=== PATIENT | male | born 1975 | race Caucasian/White ===

== ENCOUNTER 2021-06-28 13:21 | Inpatient (IN) | payer BC ==
[2021-06-28] MEDS ORDERED: Sodium Chloride 0.9% 10 ML Syringe FLUSH PRN (13:48)
[2021-06-28] MEDS ORDERED: Sodium Chloride 0.9% 2.5 ML Syringe FLUSH PRN (13:48)
[2021-06-28] MEDS ORDERED: Dexamethasone 10 MG/ML SDV IVPUSH ONE (13:48)
--- NOTE | 2021-06-28 13:50 | EDM.PDOC ---
ED HPI GENERAL MEDICAL PROBLEM - General Chief Complaint: Respiratory Problem Stated Complaint: COVID POS Time Seen by Provider: 06/28/21 13:26 Source of Information: Reports: Patient History Limitations: Reports: No Limitations - History of Present Illness INITIAL COMMENTS - FREE TEXT/NARRATIVE: 46-year-old male past medical history obesity presents for worsening shortness of breath and coughing and fatigue in setting of known COVID-19 infection. Patient was diagnosed on June 25, 4 days ago. Patient notes that over the last couple of days has had worsening shortness of breath, nonproductive cough, fatigue. He gets very short of breath when ambulating. He notes some nausea but no vomiting. He has been doing [id number] antipyretics at home without relief of symptoms. He has not been on steroids or antibiotics. Bilateral Chest Pain Score (Numeric/FACES): 8 Past Medical History - Past Health History Medical/Surgical History: Denies Medical/Surgical History HEENT History: Reports: None Cardiovascular History: Reports: None Respiratory History: Reports: None Gastrointestinal History: Reports: None Genitourinary History: Reports: None Musculoskeletal History: Reports: None Neurological History: Reports: None Psychiatric History: Reports: None Hematologic History: Reports: None Dermatologic History: Reports: None - Infectious Disease History Infectious Disease History: Reports: Chicken Pox - Past Surgical History Male Surgical History: Reports: None Social & Family History - Family History Family Medical History: No Pertinent Family History - Tobacco Use Tobacco Use Status *Q: Never Tobacco User - Caffeine Use Caffeine Use: Reports: Coffee - Recreational Drug Use Recreational Drug Use: No ED ROS GENERAL - Review of Systems Review Of Systems: Comprehensive ROS is negative, except as noted in HPI. ED EXAM, GENERAL - Physical Exam Exam: See Below Exam Limited By: No Limitations General Appearance: Alert, WD/WN, No Apparent Distress Ears: Hearing Grossly Normal Throat/Mouth: Normal Voice, No Airway Compromise Head: Atraumatic, Normocephalic Neck: Normal Inspection Respiratory/Chest: No Respiratory Distress, Lungs Clear, Normal Breath Sounds, No Accessory Muscle Use Cardiovascular: Normal Peripheral Pulses, Tachycardia Extremities: Normal Inspection Neurological: Alert, Normal Cognition, Normal Gait Psychiatric: Normal Affect, Normal Mood Skin Exam: Warm, Dry, Intact, Normal Color #1 Interpretation EKG Date: 06/28/21 Time: 13:52 Rhythm: NSR Rate (Beats/Min): 102 [place]: Normal P-Wave: Present QRS: Normal ST-T: Normal QT: Normal NC/PQ Interval: 148 EKG Interpretation Comments: TWI lead III, otherwise unremarkable EKG Course - Vital Signs Last Recorded V/S: Last Vital Signs Temp 97.6 F 06/28/21 13:36 Pulse 104 H 06/28/21 16:41 Resp 18 06/28/21 16:41 BP 120/73 06/28/21 16:41 Pulse Ox 95 06/28/21 16:41 - Orders/Labs/Meds Orders: Active Orders 24 hr Category Date Time Status Patient Status [ADT] Routine ADT 06/28/21 17:03 Ordered Cardiac Monitoring [RC] . DIRECTED Care 06/28/21 13:48 Active Pulse Oximetry [RC] ASDIRECTED Care 06/28/21 13:49 Active BILIRUBIN DIRECT [CHEM] Stat Lab 06/28/21 17:02 Stop Req Sodium Chloride 0.9% [Normal Saline] 1,000 ml Med 06/28/21 17:02 Ordered IV STAT Sodium Chloride 0.9% [Saline Flush] Med 06/28/21 13:48 Active 10 ml FLUSH ASDIRECTED PRN Sodium Chloride 0.9% [Saline Flush] Med 06/28/21 13:48 Active 2.5 ml FLUSH ASDIRECTED PRN Saline Lock Insert [OM.PC] Stat Oth 06/28/21 13:48 Ordered Medication Orders Sodium Chloride (Normal Saline) 1,000 mls @ 250 mls/hr IV STAT STA Stop: 06/28/21 21:01 Sodium Chloride (Sodium Chloride 0.9% 10 Ml Syringe) 10 ml FLUSH ASDIRECTED PRN PRN Reason: Keep Vein Open Last Admin: 06/28/21 14:28 Dose: 10 ml Documented by: JOSEFINA Sodium Chloride (Sodium Chloride 0.9% 2.5 Ml Syringe) 2.5 ml FLUSH ASDIRECTED PRN PRN Reason: Keep Vein Open Last Admin: 06/28/21 14:28 Dose: 2.5 ml Documented by: JOSEFINA Labs: Laboratory Tests 06/28/21 06/28/21 06/28/21 Range/Units 14:15 14:15 14:15 WBC 4.76 (4.0-11.0) K/uL RBC 5.18 (4.50-5.90) M/uL Hgb 14.5 (13.0-17.0) g/dL Hct 40.9 (38.0-50.0) % MCV 79.0 L (80.0-98.0) fL MCH 28.0 (27.0-32.0) pg MCHC 35.5 (31.0-37.0) g/dL RDW Std Deviation 38.5 (28.0-62.0) fl RDW Coeff of Giuliana 14 (11.0-15.0) % Plt Count 109 L (150-400) K/uL MPV 10.40 (7.40-12.00) fL Neut % (Auto) 77.7 (48.0-80.0) % Lymph % (Auto) 16.0 (16.0-40.0) % [place] % (Auto) 6.3 (0.0-15.0) % Eos % (Auto) 0.0 (0.0-7.0) % Baso % (Auto) 0.0 (0.0-1.5) % Neut # (Auto) 3.7 (1.4-5.7) K/uL Lymph # (Auto) 0.8 (0.6-2.4) K/uL [place] # (Auto) 0.3 (0.0-0.8) K/uL Eos # (Auto) 0.0 (0.0-0.7) K/uL Baso # (Auto) 0.0 (0.0-0.1) K/uL Nucleated RBC % 0.0 /100WBC Nucleated RBCs # 0 K/uL INR 1.14 APTT 34.1 H (18.6-31.3) SEC D-Dimer, Quantitative 2.00 H (0.0-0.50) mg/L FEU Sodium (136-148) mmol/L Potassium (3.5-5.1) mmol/L Chloride (98-107) mmol/L Carbon Dioxide (21.0-32.0) mmol/L BUN (7.0-18.0) mg/dL Creatinine (0.8-1.3) mg/dL Est Cr Clr Drug Dosing mL/min Estimated GFR (MDRD) ml/min Glucose (74-106) mg/dL Lactic Acid 1.8 (0.4-2.0) mmol/L Calcium (8.5-10.1) mg/dL Magnesium (1.8-2.4) mg/dL Total Bilirubin (0.2-1.0) mg/dL AST (15-37) IU/L ALT (14-63) IU/L Alkaline Phosphatase (46-116) U/L Troponin I (0.000-0.056) ng/mL C-Reactive Protein (0.00-0.90) mg/dL Total Protein (6.4-8.2) g/dL Albumin (3.4-5.0) g/dL Globulin (2.6-4.0) g/dL Albumin/Globulin Ratio (0.9-1.6) 06/28/21 Range/Units 14:15 WBC (4.0-11.0) K/uL RBC (4.50-5.90) M/uL Hgb (13.0-17.0) g/dL Hct (38.0-50.0) % MCV (80.0-98.0) fL MCH (27.0-32.0) pg MCHC (31.0-37.0) g/dL RDW Std Deviation (28.0-62.0) fl RDW Coeff of Giuliana (11.0-15.0) % Plt Count (150-400) K/uL MPV (7.40-12.00) fL Neut % (Auto) (48.0-80.0) % Lymph % (Auto) (16.0-40.0) % [place] % (Auto) (0.0-15.0) % Eos % (Auto) (0.0-7.0) % Baso % (Auto) (0.0-1.5) % Neut # (Auto) (1.4-5.7) K/uL Lymph # (Auto) (0.6-2.4) K/uL [place] # (Auto) (0.0-0.8) K/uL Eos # (Auto) (0.0-0.7) K/uL Baso # (Auto) (0.0-0.1) K/uL Nucleated RBC % /100WBC Nucleated RBCs # K/uL INR APTT (18.6-31.3) SEC D-Dimer, Quantitative (0.0-0.50) mg/L FEU Sodium 125 L (136-148) mmol/L Potassium 4.1 (3.5-5.1) mmol/L Chloride 87 L (98-107) mmol/L Carbon Dioxide 27.9 (21.0-32.0) mmol/L BUN 16 (7.0-18.0) mg/dL Creatinine 1.5 H (0.8-1.3) mg/dL Est Cr Clr Drug Dosing 62.86 mL/min Estimated GFR (MDRD) 50.2 ml/min Glucose 123 H (74-106) mg/dL Lactic Acid (0.4-2.0) mmol/L Calcium 7.9 L (8.5-10.1) mg/dL Magnesium 1.7 L (1.8-2.4) mg/dL Total Bilirubin 0.6 (0.2-1.0) mg/dL AST 78 H (15-37) IU/L ALT 62 (14-63) IU/L Alkaline Phosphatase 32 L (46-116) U/L Troponin I < 0.050 (0.000-0.056) ng/mL C-Reactive Protein 8.10 H (0.00-0.90) mg/dL Total Protein 7.1 (6.4-8.2) g/dL Albumin 3.1 L (3.4-5.0) g/dL Globulin 4.0 (2.6-4.0) g/dL Albumin/Globulin Ratio 0.8 L (0.9-1.6) Meds: Medications Generic Name Dose Route Start Last Admin Trade Name Freq PRN Reason Stop Dose Admin Sodium Chloride 1,000 mls @ 250 mls/hr 06/28/21 17:02 Normal Saline IV 06/28/21 21:01 STAT STA Sodium Chloride 10 ml 06/28/21 13:48 06/28/21 14:28 Sodium Chloride 0.9% 10 Ml Syringe FLUSH 10 ml ASDIRECTED PRN Administration Keep Vein Open Sodium Chloride 2.5 ml 06/28/21 13:48 06/28/21 14:28 Sodium Chloride 0.9% 2.5 Ml Syringe FLUSH 2.5 ml ASDIRECTED PRN Administration Keep Vein Open Discontinued Medications Generic Name Dose Route Start Last Admin Trade Name Freq PRN Reason Stop Dose Admin Dexamethasone 6 mg 06/28/21 13:48 06/28/21 14:28 Dexamethasone 10 Mg/Ml Sdv IVPUSH 06/28/21 13:49 6 mg ONETIME ONE Administration Remdesivir 200 mg/ Sodium 250 mls @ 250 mls/hr 06/28/21 17:02 Chloride IV 06/28/21 17:03 ONETIME ONE Iopamidol 75 ml 06/28/21 16:23 06/28/21 16:24 Iopamidol 755 Mg/Ml 500 Ml Multipack Bottle IVPUSH 06/28/21 16:24 75 ml ONETIME STA Administration - Re-Assessments/Exams Free Text/Narrative Re-Assessment/Exam: 06/28/21 14:13 Patient is hypoxic on room air. He improves to high 90s with 2 L nasal cannula. Will get labs and imaging. 06/28/21 15:16 Patient with elevated D-dimer and tachycardia without fever. Will get CTA chest rule pulmonary embolism in setting of known Covid infection. 06/28/21 17:04 CT angiography does not show evidence of pulmonary embolism. Patient does have moderate to severe Covid pneumonia. I discussed the case with patient and ho spitalist who agrees with plan to admit for further treatment. First dose of remdesivir ordered for the emergency department. Normal saline at 250 an hour also ordered. Departure - Departure Time of Disposition: 17:04 Disposition: Admitted As Inpatient 65 Condition: Good, Fair Clinical Impression: COVID - Discharge Information Referrals: Hank Katz MD [Primary Care Provider] - Forms: ED Department Discharge Critical Care Note - Critical Care Note Total Time (mins): 35 Sepsis Event Note (ED) - Focused Exam Vital Signs: Vital Signs Temp Pulse Resp BP Pulse Ox 06/28/21 16:41 104 H 18 120/73 95 06/28/21 15:07 108 H 18 116/81 97 06/28/21 14:30 110 H 20 127/79 94 L 06/28/21 13:36 97.6 F 109 H 32 H 118/74 91 L - My Orders Last 24 Hours: My Active Orders 06/28/21 13:48 Cardiac Monitoring [RC] . DIRECTED Sodium Chloride 0.9% [Saline Flush] 10 ml FLUSH ASDIRECTED PRN Sodium Chloride 0.9% [Saline Flush] 2.5 ml FLUSH ASDIRECTED PRN Saline Lock Insert [OM.PC] Stat 06/28/21 13:49 Pulse Oximetry [RC] ASDIRECTED 06/28/21 17:02 BILIRUBIN DIRECT [CHEM] Stat 06/28/21 17:02 Sodium Chloride 0.9% [Normal Saline] 1,000 ml IV STAT 06/28/21 17:03 Patient Status [ADT] Routine - Assessment/Plan Last 24 Hours: My Active Orders 06/28/21 13:48 Cardiac Monitoring [RC] . DIRECTED Sodium Chloride 0.9% [Saline Flush] 10 ml FLUSH ASDIRECTED PRN Sodium Chloride 0.9% [Saline Flush] 2.5 ml FLUSH ASDIRECTED PRN Saline Lock Insert [OM.PC] Stat 06/28/21 13:49 Pulse Oximetry [RC] ASDIRECTED 06/28/21 17:02 BILIRUBIN DIRECT [CHEM] Stat 06/28/21 17:02 Sodium Chloride 0.9% [Normal Saline] 1,000 ml IV STAT 06/28/21 17:03 Patient Status [ADT] Routine
--- NOTE | 2021-06-28 14:45 | CR ---
INDICATION: COVID positive. Worsening symptoms. FINDINGS: A single portable chest x-ray shows normal cardiac silhouette. The lungs are hypoventilated and show patchy ground-glass opacities in the right upper lobe and left lower lobe. Sharp pleural margins. No pneumothorax. IMPRESSION: Patchy ground-glass opacities in the right upper lobe and left lower lobe likely represents COVID pneumonia. Dictated by Nick River MD @ 06/28/2021 2:45:02 PM (Electronically Signed)
[2021-06-28 15:16] LABS: BLOOD UREA NITROGEN,BUN 16 mg/dL (7.0-18.0); CARBON DIOXIDE,CO2 27.9 mmol/L (21.0-32.0); CHLORIDE,CL 87 mmol/L (98-107); GLUCOSE RANDOM 123 mg/dL (74-106); POTASSIUM,K 4.1 mmol/L (3.5-5.1)
[2021-06-28 15:23] LABS: SODIUM,NA 125 mmol/L (136-148)
[2021-06-28] MEDS ORDERED: Iopamidol 755 MG/ML 500 ML Multipack Bottle IVPUSH STA (16:23)
--- NOTE | 2021-06-28 16:43 | CT ---
INDICATION: Elevated D-dimer. COVID positive. TECHNIQUE: CT chest PE was acquired with 75 cc Isovue 370 IV contrast. COMPARISON: None. FINDINGS: Heart and vasculature: Contrast opacification of the pulmonary arterial tree is adequate. No sign of pulmonary embolism. Heart size is normal. Thoracic aorta and pulmonary artery are normal in caliber. Lungs and pleural: Diffuse bilateral ground-glass infiltrates. No pleural effusions, pleural thickening, or pneumothorax. Lymph nodes/mediastinum: No mediastinal, hilar, or axillary adenopathy. Chest wall: No masses. Upper abdomen: Normal. Bones: Unremarkable for age. IMPRESSION: 1. No pulmonary embolism. 2. Moderate to severe COVID pneumonitis. Please note that all CT scans at this facility use dose modulation, iterative reconstruction, and/or weight-based dosing when appropriate to reduce radiation dose to as low as reasonably achievable. Dictated by Neil Esposito MD @ 06/28/2021 4:41:54 PM (Electronically Signed)
[2021-06-28] MEDS ORDERED: REMDESIVIR 200 MG in Sodium Chloride 0.9% 250 ML IV ONE (17:02)
[2021-06-28] MEDS ORDERED: Sodium Chloride 0.9% 1,000 ML IV STA (17:02)
[2021-06-28] MEDS ORDERED: Albuterol/Ipratropium 4 GM Inhalation Spray INH PRN (17:20)
--- NOTE | 2021-06-28 17:20 | PCM.HP.2 ---
H&P History of Present Illness - General Date of Service: 06/28/21 Admit Problem/Dx: Admission Diagnosis/Problem Admission Diagnosis/Problem Pneumonia - History of Present Illness Initial Comments - Free Text/Narative: 46 yo male who presents with ten day history of shortness of breath, cough, and fevers. IN the ED he was noted to be hypoxic requiring simple NC to keep sats above 90%. Patient had CT angio which was negative for PE but reports moderate to severe COVID pneumonia. Bilateral Chest Pain Score (Numeric/FACES): 8 - Related Data Allergies/Adverse Reactions: Allergies Allergy/AdvReac Type Severity Reaction Status Date / Time No Known Allergies Allergy Verified 06/28/21 17:13 Home Medications: Home Meds . [No Known Home Meds] 06/28/21 [History] Past Medical History - Past Health History Medical/Surgical History: Denies Medical/Surgical History HEENT History: Reports: None Cardiovascular History: Reports: None Respiratory History: Reports: None Gastrointestinal History: Reports: None Genitourinary History: Reports: None Musculoskeletal History: Reports: None Neurological History: Reports: None Psychiatric History: Reports: None Hematologic History: Reports: None Dermatologic History: Reports: None - Infectious Disease History Infectious Disease History: Reports: Chicken Pox - Past Surgical History Male Surgical History: Reports: None Social & Family History - Family History Family Medical History: No Pertinent Family History - Tobacco Use Tobacco Use Status *Q: Never Tobacco User - Caffeine Use Caffeine Use: Reports: Coffee - Recreational Drug Use Recreational Drug Use: No H&P Review of Systems - Review of Systems: Review Of Systems: Comprehensive ROS is negative, except as noted in HPI. Exam - Exam Exam: See Below - Vital Signs Vital Signs: Last Vital Signs Temp 36.4 C 06/28/21 13:36 Pulse 104 H 06/28/21 16:41 Resp 18 06/28/21 16:41 BP 120/73 06/28/21 16:41 Pulse Ox 95 06/28/21 16:41 Weight: 122.47 kg - Exam General: Alert, Oriented HEENT: Mucosa Moist & [place] Lungs: Normal Respiratory Effort, Rhonchi Cardiovascular: Regular Rate, Regular Rhythm Extremities: Non-Tender, No Pedal Edema Skin: Warm, Dry, Intact - Patient Data Lab Results Last 24 hrs: Laboratory Results - last 24 hr 06/28/21 06/28/21 06/28/21 Range/Units 14:15 14:15 14:15 WBC 4.76 (4.0-11.0) K/uL RBC 5.18 (4.50-5.90) M/uL Hgb 14.5 (13.0-17.0) g/dL Hct 40.9 (38.0-50.0) % MCV 79.0 L (80.0-98.0) fL MCH 28.0 (27.0-32.0) pg MCHC 35.5 (31.0-37.0) g/dL RDW Std Deviation 38.5 (28.0-62.0) fl RDW Coeff of Giuliana 14 (11.0-15.0) % Plt Count 109 L (150-400) K/uL MPV 10.40 (7.40-12.00) fL Neut % (Auto) 77.7 (48.0-80.0) % Lymph % (Auto) 16.0 (16.0-40.0) % [place] % (Auto) 6.3 (0.0-15.0) % Eos % (Auto) 0.0 (0.0-7.0) % Baso % (Auto) 0.0 (0.0-1.5) % Neut # (Auto) 3.7 (1.4-5.7) K/uL Lymph # (Auto) 0.8 (0.6-2.4) K/uL [place] # (Auto) 0.3 (0.0-0.8) K/uL Eos # (Auto) 0.0 (0.0-0.7) K/uL Baso # (Auto) 0.0 (0.0-0.1) K/uL Nucleated RBC % 0.0 /100WBC Nucleated RBCs # 0 K/uL INR 1.14 APTT 34.1 H (18.6-31.3) SEC D-Dimer, Quantitative 2.00 H (0.0-0.50) mg/L FEU Sodium (136-148) mmol/L Potassium (3.5-5.1) mmol/L Chloride (98-107) mmol/L Carbon Dioxide (21.0-32.0) mmol/L BUN (7.0-18.0) mg/dL Creatinine (0.8-1.3) mg/dL Est Cr Clr Drug Dosing mL/min Estimated GFR (MDRD) ml/min Glucose (74-106) mg/dL Lactic Acid 1.8 (0.4-2.0) mmol/L Calcium (8.5-10.1) mg/dL Magnesium (1.8-2.4) mg/dL Total Bilirubin (0.2-1.0) mg/dL AST (15-37) IU/L ALT (14-63) IU/L Alkaline Phosphatase (46-116) U/L Troponin I (0.000-0.056) ng/mL C-Reactive Protein (0.00-0.90) mg/dL Total Protein (6.4-8.2) g/dL Albumin (3.4-5.0) g/dL Globulin (2.6-4.0) g/dL Albumin/Globulin Ratio (0.9-1.6) 06/28/21 Range/Units 14:15 WBC (4.0-11.0) K/uL RBC (4.50-5.90) M/uL Hgb (13.0-17.0) g/dL Hct (38.0-50.0) % MCV (80.0-98.0) fL MCH (27.0-32.0) pg MCHC (31.0-37.0) g/dL RDW Std Deviation (28.0-62.0) fl RDW Coeff of Giuliana (11.0-15.0) % Plt Count (150-400) K/uL MPV (7.40-12.00) fL Neut % (Auto) (48.0-80.0) % Lymph % (Auto) (16.0-40.0) % [place] % (Auto) (0.0-15.0) % Eos % (Auto) (0.0-7.0) % Baso % (Auto) (0.0-1.5) % Neut # (Auto) (1.4-5.7) K/uL Lymph # (Auto) (0.6-2.4) K/uL [place] # (Auto) (0.0-0.8) K/uL Eos # (Auto) (0.0-0.7) K/uL Baso # (Auto) (0.0-0.1) K/uL Nucleated RBC % /100WBC Nucleated RBCs # K/uL INR APTT (18.6-31.3) SEC D-Dimer, Quantitative (0.0-0.50) mg/L FEU Sodium 125 L (136-148) mmol/L Potassium 4.1 (3.5-5.1) mmol/L Chloride 87 L (98-107) mmol/L Carbon Dioxide 27.9 (21.0-32.0) mmol/L BUN 16 (7.0-18.0) mg/dL Creatinine 1.5 H (0.8-1.3) mg/dL Est Cr Clr Drug Dosing 62.86 mL/min Estimated GFR (MDRD) 50.2 ml/min Glucose 123 H (74-106) mg/dL Lactic Acid (0.4-2.0) mmol/L Calcium 7.9 L (8.5-10.1) mg/dL Magnesium 1.7 L (1.8-2.4) mg/dL Total Bilirubin 0.6 (0.2-1.0) mg/dL AST 78 H (15-37) IU/L ALT 62 (14-63) IU/L Alkaline Phosphatase 32 L (46-116) U/L Troponin I < 0.050 (0.000-0.056) ng/mL C-Reactive Protein 8.10 H (0.00-0.90) mg/dL Total Protein 7.1 (6.4-8.2) g/dL Albumin 3.1 L (3.4-5.0) g/dL Globulin 4.0 (2.6-4.0) g/dL Albumin/Globulin Ratio 0.8 L (0.9-1.6) Result Diagrams: 06/28/21 14:15 06/28/21 14:15 Sepsis Event Note - Focused Exam Vital Signs: Vital Signs Temp Pulse Resp BP Pulse Ox 06/28/21 16:41 104 H 18 120/73 95 06/28/21 15:07 108 H 18 116/81 97 06/28/21 14:30 110 H 20 127/79 94 L 06/28/21 13:36 36.4 C 109 H 32 H 118/74 91 L Problem List Initiated/Reviewed/Updated: Yes Orders Last 24hrs: Active Orders 24 hr Category Date Time Status Patient Status [ADT] Routine ADT 06/28/21 17:03 Active Cardiac Monitoring [RC] . DIRECTED Care 06/28/21 13:48 Active Communication Order [RC] ROUTINE Care 06/28/21 17:16 Ordered Oxygen Therapy [RC] PRN Care 06/28/21 17:19 Ordered Pulse Oximetry [RC] ASDIRECTED Care 06/28/21 13:49 Active RT Post Treatment Assessment [RC] Click to Edit Care 06/28/21 17:20 Ordered RT Pre-Treatment Assessment [RC] Click to Edit Care 06/28/21 17:20 Ordered Up ad Imani [RC] ASDIRECTED Care 06/28/21 17:19 Ordered VTE/DVT Education [RC] PER UNIT ROUTINE Care 06/28/21 17:19 Ordered Vital Signs [RC] Q4H Care 06/28/21 17:19 Ordered Regular Diet [DIET] Diet 06/28/21 Breakfast Ordered BMP [BASIC METABOLIC PANEL,BMP] [CHEM] Stat Lab 06/28/21 22:00 Ordered CBC WITH AUTO DIFF [HEME] AM Lab 06/29/21 05:11 Ordered CBC WITH AUTO DIFF [HEME] AM Lab 06/30/21 05:11 Ordered CBC WITH AUTO DIFF [HEME] AM Lab 07/01/21 05:11 Ordered CBC WITH AUTO DIFF [HEME] AM Lab 07/02/21 05:11 Ordered CBC WITH AUTO DIFF [HEME] AM Lab 07/03/21 05:11 Ordered HEPATIC FUNCTION PANEL,HFP [CHEM] AM Lab 06/29/21 05:11 Ordered HEPATIC FUNCTION PANEL,HFP [CHEM] AM Lab 06/30/21 05:11 Ordered HEPATIC FUNCTION PANEL,HFP [CHEM] AM Lab 07/01/21 05:11 Ordered HEPATIC FUNCTION PANEL,HFP [CHEM] AM Lab 07/02/21 05:11 Ordered HEPATIC FUNCTION PANEL,HFP [CHEM] AM Lab 07/03/21 05:11 Ordered Albuterol/Ipratropium [Combivent Respimat] Med 06/28/21 17:20 Ordered 1 gm INH Q4H PRN Codeine/guaiFENesin [Robitussin AC] Med 06/28/21 17:20 Ordered 5 ml PO Q6H PRN Enoxaparin [Lovenox] Med 06/28/21 17:30 Ordered 40 mg SUBCUT Q24H Remdesivir 100 mg Med 06/29/21 17:30 Ordered Sodium Chloride 0.9% [Normal Saline] 100 ml IV Q24H Sodium Chloride 0.9% [Normal Saline] 1,000 ml Med 06/28/21 17:02 Active IV STAT Sodium Chloride 0.9% [Saline Flush] Med 06/28/21 13:48 Active 10 ml FLUSH ASDIRECTED PRN Sodium Chloride 0.9% [Saline Flush] Med 06/28/21 13:48 Active 2.5 ml FLUSH ASDIRECTED PRN dexAMETHasone Med 06/29/21 17:30 Ordered 6 mg PO Q24H Saline Lock Insert [OM.PC] Stat Oth 06/28/21 13:48 Ordered Resuscitation Status Routine Resus Stat 06/28/21 17:19 Ordered Medication Orders Dexamethasone (Dexamethasone 4 Mg Tab) 6 mg PO Q24H SAMM Enoxaparin Sodium (Enoxaparin 40 Mg/0.4 Ml Syringe) 40 mg SUBCUT Q24H SAMM Sodium Chloride (Normal Saline) 1,000 mls @ 250 mls/hr IV STAT STA Stop: 06/28/21 21:01 Remdesivir 100 mg/ Sodium (Chloride) 100 mls @ 100 mls/hr IV Q24H SAMM Stop: 07/02/21 18:29 Sodium Chloride (Sodium Chloride 0.9% 10 Ml Syringe) 10 ml FLUSH ASDIRECTED PRN PRN Reason: Keep Vein Open Last Admin: 06/28/21 14:28 Dose: 10 ml Documented by: JOSEFINA Sodium Chloride (Sodium Chloride 0.9% 2.5 Ml Syringe) 2.5 ml FLUSH ASDIRECTED PRN PRN Reason: Keep Vein Open Last Admin: 06/28/21 14:28 Dose: 2.5 ml Documented by: JOSEFINA Assessment/Plan Comment:: 46 yo male admitted for acute hypoxic respiratory failure due to COVID pneumonia. Will treat with dexamethasone and remdesivir. Will wean supplemental NC oxygen as tolerated. Receiving some NS IVF due to hyponatremia, will be cautious with IV fluids due to COVID and recheck sodium later Lovenox for DVT prophylaxis
[2021-06-28] MEDS ORDERED: Sodium Chloride 0.9% 500 ML IV STA (17:25)
[2021-06-28] MEDS: Enoxaparin 40 MG/0.4 ML Syringe SUBCUT SCH (17:46)
[2021-06-28 20:22] LABS: CARBON DIOXIDE,CO2 30.3 mmol/L (21.0-32.0); POTASSIUM,K 4.1 mmol/L (3.5-5.1)
[2021-06-29] MEDS: Codeine/guaiFENesin 10-100 MG/5 ML Syrup 5 ML Cup PO PRN ×2 (06:53→14:52)
--- NOTE | 2021-06-29 07:24 | PCM.PN ---
- General Info Date of Service: 06/29/21 - Review of Systems Systems Review Comment:: feeling better, shortness of breath has improved - Patient Data Vitals - Most Recent: Last Vital Signs Temp 36.3 C 06/29/21 03:40 Pulse 83 06/29/21 03:40 Resp 18 06/29/21 03:40 BP 135/76 06/29/21 03:40 Pulse Ox 95 06/29/21 03:40 Weight - Most Recent: 123.74 kg I&O - Last 24 Hours: Intake & Output 06/28/21 06/29/21 06/29/21 22:59 06:59 14:59 Intake Total 800 Balance 800 Lab Results Last 24 Hours: Laboratory Results - last 24 hr 06/28/21 06/28/21 06/28/21 Range/Units 14:15 14:15 14:15 WBC 4.76 (4.0-11.0) K/uL RBC 5.18 (4.50-5.90) M/uL Hgb 14.5 (13.0-17.0) g/dL Hct 40.9 (38.0-50.0) % MCV 79.0 L (80.0-98.0) fL MCH 28.0 (27.0-32.0) pg MCHC 35.5 (31.0-37.0) g/dL RDW Std Deviation 38.5 (28.0-62.0) fl RDW Coeff of Giuliana 14 (11.0-15.0) % Plt Count 109 L (150-400) K/uL MPV 10.40 (7.40-12.00) fL Neut % (Auto) 77.7 (48.0-80.0) % Lymph % (Auto) 16.0 (16.0-40.0) % [place] % (Auto) 6.3 (0.0-15.0) % Eos % (Auto) 0.0 (0.0-7.0) % Baso % (Auto) 0.0 (0.0-1.5) % Neut # (Auto) 3.7 (1.4-5.7) K/uL Lymph # (Auto) 0.8 (0.6-2.4) K/uL [place] # (Auto) 0.3 (0.0-0.8) K/uL Eos # (Auto) 0.0 (0.0-0.7) K/uL Baso # (Auto) 0.0 (0.0-0.1) K/uL Nucleated RBC % 0.0 /100WBC Nucleated RBCs # 0 K/uL INR 1.14 APTT 34.1 H (18.6-31.3) SEC D-Dimer, Quantitative 2.00 H (0.0-0.50) mg/L FEU Sodium (136-148) mmol/L Potassium (3.5-5.1) mmol/L Chloride (98-107) mmol/L Carbon Dioxide (21.0-32.0) mmol/L BUN (7.0-18.0) mg/dL Creatinine (0.8-1.3) mg/dL Est Cr Clr Drug Dosing mL/min Estimated GFR (MDRD) ml/min Glucose (74-106) mg/dL Lactic Acid 1.8 (0.4-2.0) mmol/L Calcium (8.5-10.1) mg/dL Magnesium (1.8-2.4) mg/dL Total Bilirubin (0.2-1.0) mg/dL AST (15-37) IU/L ALT (14-63) IU/L Alkaline Phosphatase (46-116) U/L Troponin I (0.000-0.056) ng/mL C-Reactive Protein (0.00-0.90) mg/dL Total Protein (6.4-8.2) g/dL Albumin (3.4-5.0) g/dL Globulin (2.6-4.0) g/dL Albumin/Globulin Ratio (0.9-1.6) 06/28/21 06/28/21 Range/Units 14:15 20:00 WBC (4.0-11.0) K/uL RBC (4.50-5.90) M/uL Hgb (13.0-17.0) g/dL Hct (38.0-50.0) % MCV (80.0-98.0) fL MCH (27.0-32.0) pg MCHC (31.0-37.0) g/dL RDW Std Deviation (28.0-62.0) fl RDW Coeff of Giuliana (11.0-15.0) % Plt Count (150-400) K/uL MPV (7.40-12.00) fL Neut % (Auto) (48.0-80.0) % Lymph % (Auto) (16.0-40.0) % [place] % (Auto) (0.0-15.0) % Eos % (Auto) (0.0-7.0) % Baso % (Auto) (0.0-1.5) % Neut # (Auto) (1.4-5.7) K/uL Lymph # (Auto) (0.6-2.4) K/uL [place] # (Auto) (0.0-0.8) K/uL Eos # (Auto) (0.0-0.7) K/uL Baso # (Auto) (0.0-0.1) K/uL Nucleated RBC % /100WBC Nucleated RBCs # K/uL INR APTT (18.6-31.3) SEC D-Dimer, Quantitative (0.0-0.50) mg/L FEU Sodium 125 L 125 L (136-148) mmol/L Potassium 4.1 4.1 (3.5-5.1) mmol/L Chloride 87 L 89 L (98-107) mmol/L Carbon Dioxide 27.9 30.3 (21.0-32.0) mmol/L BUN 16 15 (7.0-18.0) mg/dL Creatinine 1.5 H 1.5 H (0.8-1.3) mg/dL Est Cr Clr Drug Dosing 62.86 63.85 mL/min Estimated GFR (MDRD) 50.2 50.2 ml/min Glucose 123 H 140 H (74-106) mg/dL Lactic Acid (0.4-2.0) mmol/L Calcium 7.9 L 7.8 L (8.5-10.1) mg/dL Magnesium 1.7 L (1.8-2.4) mg/dL Total Bilirubin 0.6 (0.2-1.0) mg/dL AST 78 H (15-37) IU/L ALT 62 (14-63) IU/L Alkaline Phosphatase 32 L (46-116) U/L Troponin I < 0.050 (0.000-0.056) ng/mL C-Reactive Protein 8.10 H (0.00-0.90) mg/dL Total Protein 7.1 (6.4-8.2) g/dL Albumin 3.1 L (3.4-5.0) g/dL Globulin 4.0 (2.6-4.0) g/dL Albumin/Globulin Ratio 0.8 L (0.9-1.6) Med Orders - Current: Current Medications Albuterol/Ipratropium (Albuterol/Ipratropium 4 Gm Inhalation [place]) 1 gm INH Q4H PRN PRN Reason: Dyspnea Dexamethasone (Dexamethasone 4 Mg Tab) 6 mg PO Q24H SAMM Enoxaparin Sodium (Enoxaparin 40 Mg/0.4 Ml Syringe) 40 mg SUBCUT Q24H SAMM Last Admin: 06/28/21 17:46 Dose: 40 mg Documented by: Guaifenesin/Codeine Phosphate (Codeine/Guaifenesin 10-100 Mg/5 Ml Syrup 5 Ml Cup) 5 ml PO Q6H PRN PRN Reason: Cough Last Admin: 06/29/21 06:53 Dose: 5 ml Documented by: Remdesivir 100 mg/ Sodium (Chloride) 100 mls @ 100 mls/hr IV Q24H SAMM Stop: 07/02/21 18:29 Sodium Chloride (Sodium Chloride 0.9% 10 Ml Syringe) 10 ml FLUSH ASDIRECTED PRN PRN Reason: Keep Vein Open Last Admin: 06/28/21 14:28 Dose: 10 ml Documented by: Sodium Chloride (Sodium Chloride 0.9% 2.5 Ml Syringe) 2.5 ml FLUSH ASDIRECTED PRN PRN Reason: Keep Vein Open Last Admin: 06/28/21 14:28 Dose: 2.5 ml Documented by: Discontinued Medications Dexamethasone (Dexamethasone 10 Mg/Ml Sdv) 6 mg IVPUSH ONETIME ONE Stop: 06/28/21 13:49 Last Admin: 06/28/21 14:28 Dose: 6 mg Documented by: Remdesivir 200 mg/ Sodium (Chloride) 250 mls @ 250 mls/hr IV ONETIME ONE Stop: 06/28/21 17:03 Last Admin: 06/28/21 17:46 Dose: 250 mls/hr Documented by: Sodium Chloride (Normal Saline) 1,000 mls @ 250 mls/hr IV STAT STA Stop: 06/28/21 21:01 Last Admin: 06/28/21 17:50 Dose: Not Given Documented by: Sodium Chloride (Normal Saline) 500 mls @ 250 mls/hr IV STAT STA Stop: 06/28/21 19:01 Last Admin: 06/28/21 17:46 Dose: 250 mls/hr Documented by: Iopamidol (Iopamidol 755 Mg/Ml 500 Ml Multipack Bottle) 75 ml IVPUSH ONETIME STA Stop: 06/28/21 16:24 Last Admin: 06/28/21 16:24 Dose: 75 ml Documented by: - Exam General: Alert, Oriented Neck: Supple Lungs: Clear to Auscultation, Normal Respiratory Effort Cardiovascular: Regular Rate, Regular Rhythm GI/Abdominal Exam: Soft Extremities: Non-Tender, No Pedal Edema Skin: Warm, Dry, Intact Neurological: No New Focal Deficit - Patient Data Lab Results Last 24 hrs: Laboratory Results - last 24 hr 06/28/21 06/28/21 06/28/21 Range/Units 14:15 14:15 14:15 WBC 4.76 (4.0-11.0) K/uL RBC 5.18 (4.50-5.90) M/uL Hgb 14.5 (13.0-17.0) g/dL Hct 40.9 (38.0-50.0) % MCV 79.0 L (80.0-98.0) fL MCH 28.0 (27.0-32.0) pg MCHC 35.5 (31.0-37.0) g/dL RDW Std Deviation 38.5 (28.0-62.0) fl RDW Coeff of Giuliana 14 (11.0-15.0) % Plt Count 109 L (150-400) K/uL MPV 10.40 (7.40-12.00) fL Neut % (Auto) 77.7 (48.0-80.0) % Lymph % (Auto) 16.0 (16.0-40.0) % [place] % (Auto) 6.3 (0.0-15.0) % Eos % (Auto) 0.0 (0.0-7.0) % Baso % (Auto) 0.0 (0.0-1.5) % Neut # (Auto) 3.7 (1.4-5.7) K/uL Lymph # (Auto) 0.8 (0.6-2.4) K/uL [place] # (Auto) 0.3 (0.0-0.8) K/uL Eos # (Auto) 0.0 (0.0-0.7) K/uL Baso # (Auto) 0.0 (0.0-0.1) K/uL Nucleated RBC % 0.0 /100WBC Nucleated RBCs # 0 K/uL INR 1.14 APTT 34.1 H (18.6-31.3) SEC D-Dimer, Quantitative 2.00 H (0.0-0.50) mg/L FEU Sodium (136-148) mmol/L Potassium (3.5-5.1) mmol/L Chloride (98-107) mmol/L Carbon Dioxide (21.0-32.0) mmol/L BUN (7.0-18.0) mg/dL Creatinine (0.8-1.3) mg/dL Est Cr Clr Drug Dosing mL/min Estimated GFR (MDRD) ml/min Glucose (74-106) mg/dL Lactic Acid 1.8 (0.4-2.0) mmol/L Calcium (8.5-10.1) mg/dL Magnesium (1.8-2.4) mg/dL Total Bilirubin (0.2-1.0) mg/dL AST (15-37) IU/L ALT (14-63) IU/L Alkaline Phosphatase (46-116) U/L Troponin I (0.000-0.056) ng/mL C-Reactive Protein (0.00-0.90) mg/dL Total Protein (6.4-8.2) g/dL Albumin (3.4-5.0) g/dL Globulin (2.6-4.0) g/dL Albumin/Globulin Ratio (0.9-1.6) 06/28/21 06/28/21 Range/Units 14:15 20:00 WBC (4.0-11.0) K/uL RBC (4.50-5.90) M/uL Hgb (13.0-17.0) g/dL Hct (38.0-50.0) % MCV (80.0-98.0) fL MCH (27.0-32.0) pg MCHC (31.0-37.0) g/dL RDW Std Deviation (28.0-62.0) fl RDW Coeff of Giuliana (11.0-15.0) % Plt Count (150-400) K/uL MPV (7.40-12.00) fL Neut % (Auto) (48.0-80.0) % Lymph % (Auto) (16.0-40.0) % [place] % (Auto) (0.0-15.0) % Eos % (Auto) (0.0-7.0) % Baso % (Auto) (0.0-1.5) % Neut # (Auto) (1.4-5.7) K/uL Lymph # (Auto) (0.6-2.4) K/uL [place] # (Auto) (0.0-0.8) K/uL Eos # (Auto) (0.0-0.7) K/uL Baso # (Auto) (0.0-0.1) K/uL Nucleated RBC % /100WBC Nucleated RBCs # K/uL INR APTT (18.6-31.3) SEC D-Dimer, Quantitative (0.0-0.50) mg/L FEU Sodium 125 L 125 L (136-148) mmol/L Potassium 4.1 4.1 (3.5-5.1) mmol/L Chloride 87 L 89 L (98-107) mmol/L Carbon Dioxide 27.9 30.3 (21.0-32.0) mmol/L BUN 16 15 (7.0-18.0) mg/dL Creatinine 1.5 H 1.5 H (0.8-1.3) mg/dL Est Cr Clr Drug Dosing 62.86 63.85 mL/min Estimated GFR (MDRD) 50.2 50.2 ml/min Glucose 123 H 140 H (74-106) mg/dL Lactic Acid (0.4-2.0) mmol/L Calcium 7.9 L 7.8 L (8.5-10.1) mg/dL Magnesium 1.7 L (1.8-2.4) mg/dL Total Bilirubin 0.6 (0.2-1.0) mg/dL AST 78 H (15-37) IU/L ALT 62 (14-63) IU/L Alkaline Phosphatase 32 L (46-116) U/L Troponin I < 0.050 (0.000-0.056) ng/mL C-Reactive Protein 8.10 H (0.00-0.90) mg/dL Total Protein 7.1 (6.4-8.2) g/dL Albumin 3.1 L (3.4-5.0) g/dL Globulin 4.0 (2.6-4.0) g/dL Albumin/Globulin Ratio 0.8 L (0.9-1.6) Result Diagrams: 06/28/21 14:15 06/28/21 20:00 Sepsis Event Note - Evaluation Sepsis Screening Result: No Definite Risk - Focused Exam Vital Signs: Vital Signs Temp Pulse Resp BP Pulse Ox 06/29/21 03:40 36.3 C 83 18 135/76 95 06/29/21 00:00 37.4 C 87 24 H 134/86 94 L 06/28/21 19:42 93 18 140/79 94 L - Problem List Review Problem List Initiated/Reviewed/Updated: Yes - My Orders Last 24 Hours: My Active Orders 06/28/21 Breakfast Regular Diet [DIET] 06/28/21 17:16 Communication Order [RC] ROUTINE 06/28/21 17:19 Oxygen Therapy [RC] PRN Up ad Imani [RC] ASDIRECTED VTE/DVT Education [RC] PER UNIT ROUTINE Vital Signs [RC] Q4H Resuscitation Status Routine 06/28/21 17:20 RT Post Treatment Assessment [RC] Click to Edit RT Pre-Treatment Assessment [RC] Click to Edit Albuterol/Ipratropium [Combivent Respimat] 1 gm INH Q4H PRN Codeine/guaiFENesin [Robitussin AC] 5 ml PO Q6H PRN 06/28/21 17:30 Enoxaparin [Lovenox] 40 mg SUBCUT Q24H 06/28/21 17:46 Telemetry Monitoring [Cardiac Monitoring] [RC] . DIRECTED 06/29/21 05:11 CBC WITH AUTO DIFF [HEME] AM HEPATIC FUNCTION PANEL,HFP [CHEM] AM 06/29/21 17:30 Remdesivir 100 mg Sodium Chloride 0.9% [Normal Saline] 100 ml IV Q24H dexAMETHasone 6 mg PO Q24H 06/30/21 05:11 CBC WITH AUTO DIFF [HEME] AM HEPATIC FUNCTION PANEL,HFP [CHEM] AM 07/01/21 05:11 CBC WITH AUTO DIFF [HEME] AM HEPATIC FUNCTION PANEL,HFP [CHEM] AM 07/02/21 05:11 CBC WITH AUTO DIFF [HEME] AM HEPATIC FUNCTION PANEL,HFP [CHEM] AM 07/03/21 05:11 CBC WITH AUTO DIFF [HEME] AM HEPATIC FUNCTION PANEL,HFP [CHEM] AM - Plan Plan:: 46 yo male admitted for acute hypoxic respiratory failure due to COVID pneumonia. COVID pneumonia: continue with dexamethasone and remdesivir. Will wean suppl emental [place] oxygen as tolerated. Hyponatremia: Receiving some NS IVF due to hyponatremia, being cautious with IV fluids due to COVID AM labs pending Lovenox for DVT prophylaxis
[2021-06-29 08:07] LABS: BILIRUBIN INDIRECT 0.5
[2021-06-29 12:48] LABS: BLOOD UREA NITROGEN,BUN 14 mg/dL (7.0-18.0); CARBON DIOXIDE,CO2 31.5 mmol/L (21.0-32.0); CHLORIDE,CL 89 mmol/L (98-107); GLUCOSE RANDOM 120 mg/dL (74-106); SODIUM,NA 125 mmol/L (136-148)
[2021-06-29] MEDS: REMDESIVIR 100 MG in Sodium Chloride 0.9% 100 ML IV SCH (18:06)
[2021-06-29] MEDS: Dexamethasone 4 MG Tab PO SCH (18:06)
[2021-06-29] MEDS: Enoxaparin 40 MG/0.4 ML Syringe SUBCUT SCH (18:06)
[2021-06-29] MEDS: Sodium Chloride 0.9% 1,000 ML IV SCH (19:42)
[2021-06-29 20:34] LABS: BLOOD UREA NITROGEN,BUN 15 mg/dL (7.0-18.0); CARBON DIOXIDE,CO2 29.9 mmol/L (21.0-32.0); CHLORIDE,CL 90 mmol/L (98-107); GLUCOSE RANDOM 153 mg/dL (74-106); SODIUM,NA 125 mmol/L (136-148)
[2021-06-30] MEDS: Sodium Chloride 0.9% 1,000 ML IV SCH (03:55)
[2021-06-30 06:33] LABS: BLOOD UREA NITROGEN,BUN 14 mg/dL (7.0-18.0); CARBON DIOXIDE,CO2 30.4 mmol/L (21.0-32.0); CHLORIDE,CL 94 mmol/L (98-107); GLUCOSE RANDOM 141 mg/dL (74-106); POTASSIUM,K 4.2 mmol/L (3.5-5.1); SODIUM,NA 130 mmol/L (136-148)
--- NOTE | 2021-06-30 12:36 | PCM.PN ---
- General Info Date of Service: 06/30/21 - Review of Systems Systems Review Comment:: feeling better, reports shortness of breath with exertion - Patient Data Vitals - Most Recent: Last Vital Signs Temp 35.9 C L 06/30/21 12:10 Pulse 81 06/30/21 12:10 Resp 17 06/30/21 12:10 BP 125/67 06/30/21 12:10 Pulse Ox 90 L 06/30/21 12:10 Weight - Most Recent: 123.74 kg I&O - Last 24 Hours: Intake & Output 06/29/21 06/30/21 06/30/21 22:59 06:59 14:59 Intake Total 980 1000 Balance 980 1000 Lab Results Last 24 Hours: Laboratory Results - last 24 hr 06/29/21 06/29/21 06/30/21 Range/Units 07:18 20:07 05:40 WBC 3.84 L (4.0-11.0) K/uL RBC 4.91 (4.50-5.90) M/uL Hgb 13.7 (13.0-17.0) g/dL Hct 39.4 (38.0-50.0) % MCV 80.2 (80.0-98.0) fL MCH 27.9 (27.0-32.0) pg MCHC 34.8 (31.0-37.0) g/dL RDW Std Deviation 40.9 (28.0-62.0) fl RDW Coeff of Giuliana 14 (11.0-15.0) % Plt Count 145 L (150-400) K/uL MPV 10.90 (7.40-12.00) fL Neut % (Auto) 75.0 (48.0-80.0) % Lymph % (Auto) 16.4 (16.0-40.0) % [place] % (Auto) 8.6 (0.0-15.0) % Eos % (Auto) 0.0 (0.0-7.0) % Baso % (Auto) 0.0 (0.0-1.5) % Neut # (Auto) 2.9 (1.4-5.7) K/uL Lymph # (Auto) 0.6 (0.6-2.4) K/uL [place] # (Auto) 0.3 (0.0-0.8) K/uL Eos # (Auto) 0.0 (0.0-0.7) K/uL Baso # (Auto) 0.0 (0.0-0.1) K/uL Nucleated RBC % 0.0 /100WBC Nucleated RBCs # 0 K/uL Sodium 125 L 125 L (136-148) mmol/L Potassium 4.0 4.0 (3.5-5.1) mmol/L Chloride 89 L 90 L (98-107) mmol/L Carbon Dioxide 31.5 29.9 (21.0-32.0) mmol/L BUN 14 15 (7.0-18.0) mg/dL Creatinine 1.2 1.2 (0.8-1.3) mg/dL Est Cr Clr Drug Dosing 79.81 79.81 mL/min Estimated GFR (MDRD) > 60.0 > 60.0 ml/min Glucose 120 H 153 H (74-106) mg/dL Calcium 7.6 L 7.3 L (8.5-10.1) mg/dL Total Bilirubin (0.2-1.0) mg/dL AST (15-37) IU/L ALT (14-63) IU/L Alkaline Phosphatase (46-116) U/L Total Protein (6.4-8.2) g/dL Albumin (3.4-5.0) g/dL Globulin (2.6-4.0) g/dL Albumin/Globulin Ratio (0.9-1.6) 06/30/21 Range/Units 05:40 WBC (4.0-11.0) K/uL RBC (4.50-5.90) M/uL Hgb (13.0-17.0) g/dL Hct (38.0-50.0) % MCV (80.0-98.0) fL MCH (27.0-32.0) pg MCHC (31.0-37.0) g/dL RDW Std Deviation (28.0-62.0) fl RDW Coeff of Giuliana (11.0-15.0) % Plt Count (150-400) K/uL MPV (7.40-12.00) fL Neut % (Auto) (48.0-80.0) % Lymph % (Auto) (16.0-40.0) % [place] % (Auto) (0.0-15.0) % Eos % (Auto) (0.0-7.0) % Baso % (Auto) (0.0-1.5) % Neut # (Auto) (1.4-5.7) K/uL Lymph # (Auto) (0.6-2.4) K/uL [place] # (Auto) (0.0-0.8) K/uL Eos # (Auto) (0.0-0.7) K/uL Baso # (Auto) (0.0-0.1) K/uL Nucleated RBC % /100WBC Nucleated RBCs # K/uL Sodium 130 L (136-148) mmol/L Potassium 4.2 (3.5-5.1) mmol/L Chloride 94 L (98-107) mmol/L Carbon Dioxide 30.4 (21.0-32.0) mmol/L BUN 14 (7.0-18.0) mg/dL Creatinine 1.2 (0.8-1.3) mg/dL Est Cr Clr Drug Dosing 79.81 mL/min Estimated GFR (MDRD) > 60.0 ml/min Glucose 141 H (74-106) mg/dL Calcium 7.4 L (8.5-10.1) mg/dL Total Bilirubin 0.6 (0.2-1.0) mg/dL AST 88 H (15-37) IU/L ALT 68 H (14-63) IU/L Alkaline Phosphatase 28 L (46-116) U/L Total Protein 6.2 L (6.4-8.2) g/dL Albumin 2.5 L (3.4-5.0) g/dL Globulin 3.7 (2.6-4.0) g/dL Albumin/Globulin Ratio 0.7 L (0.9-1.6) Med Orders - Current: Current Medications Albuterol/Ipratropium (Albuterol/Ipratropium 4 Gm Inhalation [place]) 1 gm INH Q4H PRN PRN Reason: Dyspnea Dexamethasone (Dexamethasone 4 Mg Tab) 6 mg PO Q24H SAMM Last Admin: 06/29/21 18:06 Dose: 6 mg Documented by: Enoxaparin Sodium (Enoxaparin 40 Mg/0.4 Ml Syringe) 40 mg SUBCUT Q24H SAMM Last Admin: 06/29/21 18:06 Dose: 40 mg Documented by: Guaifenesin/Codeine Phosphate (Codeine/Guaifenesin 10-100 Mg/5 Ml Syrup 5 Ml Cup) 5 ml PO Q6H PRN PRN Reason: Cough Last Admin: 06/29/21 14:52 Dose: 5 ml Documented by: Remdesivir 100 mg/ Sodium (Chloride) 100 mls @ 100 mls/hr IV Q24H SAMM Stop: 07/02/21 18:29 Last Admin: 06/29/21 18:06 Dose: 100 mls/hr Documented by: Sodium Chloride (Sodium Chloride 0.9% 10 Ml Syringe) 10 ml FLUSH ASDIRECTED PRN PRN Reason: Keep Vein Open Last Admin: 06/28/21 14:28 Dose: 10 ml Documented by: Sodium Chloride (Sodium Chloride 0.9% 2.5 Ml Syringe) 2.5 ml FLUSH ASDIRECTED PRN PRN Reason: Keep Vein Open Last Admin: 06/28/21 14:28 Dose: 2.5 ml Documented by: Discontinued Medications Dexamethasone (Dexamethasone 10 Mg/Ml Sdv) 6 mg IVPUSH ONETIME ONE Stop: 06/28/21 13:49 Last Admin: 06/28/21 14:28 Dose: 6 mg Documented by: Remdesivir 200 mg/ Sodium (Chloride) 250 mls @ 250 mls/hr IV ONETIME ONE Stop: 06/28/21 17:03 Last Admin: 06/28/21 17:46 Dose: 250 mls/hr Documented by: Sodium Chloride (Normal Saline) 1,000 mls @ 250 mls/hr IV STAT STA Stop: 06/28/21 21:01 Last Admin: 06/28/21 17:50 Dose: Not Given Documented by: Sodium Chloride (Normal Saline) 500 mls @ 250 mls/hr IV STAT STA Stop: 06/28/21 19:01 Last Admin: 06/28/21 17:46 Dose: 250 mls/hr Documented by: Sodium Chloride (Normal Saline) 1,000 mls @ 125 mls/hr IV ASDIRECTED SAMM Last Admin: 06/30/21 03:55 Dose: 125 mls/hr Documented by: Iopamidol (Iopamidol 755 Mg/Ml 500 Ml Multipack Bottle) 75 ml IVPUSH ONETIME STA Stop: 06/28/21 16:24 Last Admin: 06/28/21 16:24 Dose: 75 ml Documented by: - Exam General: Alert, Oriented Neck: Supple Lungs: Clear to Auscultation, Normal Respiratory Effort Cardiovascular: Regular Rate, Regular Rhythm GI/Abdominal Exam: Soft, Non-Tender, No Distention Extremities: Non-Tender, No Pedal Edema Skin: Warm, Dry, Intact - Patient Data Lab Results Last 24 hrs: Laboratory Results - last 24 hr 06/29/21 06/29/21 06/30/21 Range/Units 07:18 20:07 05:40 WBC 3.84 L (4.0-11.0) K/uL RBC 4.91 (4.50-5.90) M/uL Hgb 13.7 (13.0-17.0) g/dL Hct 39.4 (38.0-50.0) % MCV 80.2 (80.0-98.0) fL MCH 27.9 (27.0-32.0) pg MCHC 34.8 (31.0-37.0) g/dL RDW Std Deviation 40.9 (28.0-62.0) fl RDW Coeff of Giuliana 14 (11.0-15.0) % Plt Count 145 L (150-400) K/uL MPV 10.90 (7.40-12.00) fL Neut % (Auto) 75.0 (48.0-80.0) % Lymph % (Auto) 16.4 (16.0-40.0) % [place] % (Auto) 8.6 (0.0-15.0) % Eos % (Auto) 0.0 (0.0-7.0) % Baso % (Auto) 0.0 (0.0-1.5) % Neut # (Auto) 2.9 (1.4-5.7) K/uL Lymph # (Auto) 0.6 (0.6-2.4) K/uL [place] # (Auto) 0.3 (0.0-0.8) K/uL Eos # (Auto) 0.0 (0.0-0.7) K/uL Baso # (Auto) 0.0 (0.0-0.1) K/uL Nucleated RBC % 0.0 /100WBC Nucleated RBCs # 0 K/uL Sodium 125 L 125 L (136-148) mmol/L Potassium 4.0 4.0 (3.5-5.1) mmol/L Chloride 89 L 90 L (98-107) mmol/L Carbon Dioxide 31.5 29.9 (21.0-32.0) mmol/L BUN 14 15 (7.0-18.0) mg/dL Creatinine 1.2 1.2 (0.8-1.3) mg/dL Est Cr Clr Drug Dosing 79.81 79.81 mL/min Estimated GFR (MDRD) > 60.0 > 60.0 ml/min Glucose 120 H 153 H (74-106) mg/dL Calcium 7.6 L 7.3 L (8.5-10.1) mg/dL Total Bilirubin (0.2-1.0) mg/dL AST (15-37) IU/L ALT (14-63) IU/L Alkaline Phosphatase (46-116) U/L Total Protein (6.4-8.2) g/dL Albumin (3.4-5.0) g/dL Globulin (2.6-4.0) g/dL Albumin/Globulin Ratio (0.9-1.6) 06/30/21 Range/Units 05:40 WBC (4.0-11.0) K/uL RBC (4.50-5.90) M/uL Hgb (13.0-17.0) g/dL Hct (38.0-50.0) % MCV (80.0-98.0) fL MCH (27.0-32.0) pg MCHC (31.0-37.0) g/dL RDW Std Deviation (28.0-62.0) fl RDW Coeff of Giuliana (11.0-15.0) % Plt Count (150-400) K/uL MPV (7.40-12.00) fL Neut % (Auto) (48.0-80.0) % Lymph % (Auto) (16.0-40.0) % [place] % (Auto) (0.0-15.0) % Eos % (Auto) (0.0-7.0) % Baso % (Auto) (0.0-1.5) % Neut # (Auto) (1.4-5.7) K/uL Lymph # (Auto) (0.6-2.4) K/uL [place] # (Auto) (0.0-0.8) K/uL Eos # (Auto) (0.0-0.7) K/uL Baso # (Auto) (0.0-0.1) K/uL Nucleated RBC % /100WBC Nucleated RBCs # K/uL Sodium 130 L (136-148) mmol/L Potassium 4.2 (3.5-5.1) mmol/L Chloride 94 L (98-107) mmol/L Carbon Dioxide 30.4 (21.0-32.0) mmol/L BUN 14 (7.0-18.0) mg/dL Creatinine 1.2 (0.8-1.3) mg/dL Est Cr Clr Drug Dosing 79.81 mL/min Estimated GFR (MDRD) > 60.0 ml/min Glucose 141 H (74-106) mg/dL Calcium 7.4 L (8.5-10.1) mg/dL Total Bilirubin 0.6 (0.2-1.0) mg/dL AST 88 H (15-37) IU/L ALT 68 H (14-63) IU/L Alkaline Phosphatase 28 L (46-116) U/L Total Protein 6.2 L (6.4-8.2) g/dL Albumin 2.5 L (3.4-5.0) g/dL Globulin 3.7 (2.6-4.0) g/dL Albumin/Globulin Ratio 0.7 L (0.9-1.6) Result Diagrams: 06/30/21 05:40 06/30/21 05:40 Sepsis Event Note - Evaluation Sepsis Screening Result: Possible Sepsis Risk - Focused Exam Vital Signs: Vital Signs Temp Temp Pulse Resp BP Pulse Ox 06/30/21 12:10 35.9 C L 81 17 125/67 90 L 06/30/21 08:11 36.0 C L 77 20 125/79 93 L 06/30/21 08:04 36.0 C L 77 16 130/73 93 L 06/30/21 03:45 36.6 C 78 20 142/82 H 94 L - Problem List Review Problem List Initiated/Reviewed/Updated: Yes - My Orders Last 24 Hours: My Active Orders 06/29/21 13:31 Intake and Output Strict [RC] ASDIRECTED 06/29/21 15:35 Communication Order [RC] ROUTINE 06/29/21 17:30 Remdesivir 100 mg Sodium Chloride 0.9% [Normal Saline] 100 ml IV Q24H dexAMETHasone 6 mg PO Q24H 07/01/21 05:11 CBC WITH AUTO DIFF [HEME] AM COMPREHENSIVE METABOLIC PN,CMP [CHEM] AM 07/02/21 05:11 CBC WITH AUTO DIFF [HEME] AM COMPREHENSIVE METABOLIC PN,CMP [CHEM] AM 07/03/21 05:11 CBC WITH AUTO DIFF [HEME] AM COMPREHENSIVE METABOLIC PN,CMP [CHEM] AM 07/04/21 05:11 COMPREHENSIVE METABOLIC PN,CMP [CHEM] AM - Plan Plan:: 46 yo male admitted for acute hypoxic respiratory failure due to COVID pneumon ia. COVID pneumonia: continue with dexamethasone and remdesivir. Will wean supplemental NC oxygen as tolerated. patient desats with exertion. Hyponatremia: sodium 130 this morning Lovenox for DVT prophylaxis
[2021-06-30] MEDS: REMDESIVIR 100 MG in Sodium Chloride 0.9% 100 ML IV SCH (16:35)
[2021-06-30] MEDS: Dexamethasone 4 MG Tab PO SCH (16:41)
[2021-06-30] MEDS: Enoxaparin 40 MG/0.4 ML Syringe SUBCUT SCH (16:42)
[2021-07-01 07:08] LABS: BLOOD UREA NITROGEN,BUN 14 mg/dL (7.0-18.0); CARBON DIOXIDE,CO2 29.2 mmol/L (21.0-32.0); CHLORIDE,CL 97 mmol/L (98-107); GLUCOSE RANDOM 140 mg/dL (74-106); POTASSIUM,K 4.3 mmol/L (3.5-5.1); SODIUM,NA 132 mmol/L (136-148)
[2021-07-01] MEDS: Codeine/guaiFENesin 10-100 MG/5 ML Syrup 5 ML Cup PO PRN ×2 (11:46→18:14)
--- NOTE | 2021-07-01 13:02 | PCM.PN ---
- General Info Date of Service: 07/01/21 Admission Dx/Problem (Free Text): Admission Diagnosis/Problem Admission Diagnosis/Problem Pneumonia Subjective Update: Feeling improved today on and off oxygen continues to feel short of breath and appears dyspneic during interview. Denies any chest pain. Continues to have cough otherwise feeling much improved and eager to be discharged home when able. Functional Status: Reports: Pain Controlled, Tolerating Diet, Ambulating, Urinating - Review of Systems General: Reports: Fatigue HEENT: Reports: No Symptoms Pulmonary: Reports: Shortness of Breath, Cough Cardiovascular: Reports: Dyspnea on Exertion. Denies: Chest Pain, Palpitations Gastrointestinal: Reports: No Symptoms. Denies: Abdominal Pain, Nausea, Vomiting Genitourinary: Reports: No Symptoms Musculoskeletal: Reports: No Symptoms Skin: Reports: No Symptoms Neurological: Reports: No Symptoms Psychiatric: Reports: No Symptoms - Patient Data Vitals - Most Recent: Last Vital Signs Temp 97.1 F 07/01/21 11:43 Pulse 69 07/01/21 11:43 Resp 22 H 07/01/21 08:00 BP 108/77 07/01/21 11:43 Pulse Ox 91 L 07/01/21 11:43 Weight - Most Recent: 123.74 kg I&O - Last 24 Hours: Intake & Output 06/30/21 07/01/21 07/01/21 22:59 06:59 14:59 Intake Total 2450 1000 Balance 2450 1000 Lab Results Last 24 Hours: Laboratory Results - last 24 hr 07/01/21 07/01/21 Range/Units 06:02 06:02 WBC 4.52 (4.0-11.0) K/uL RBC 4.87 (4.50-5.90) M/uL Hgb 13.7 (13.0-17.0) g/dL Hct 39.8 (38.0-50.0) % MCV 81.7 (80.0-98.0) fL MCH 28.1 (27.0-32.0) pg MCHC 34.4 (31.0-37.0) g/dL RDW Std Deviation 42.1 (28.0-62.0) fl RDW Coeff of Giuliana 14 (11.0-15.0) % Plt Count 179 (150-400) K/uL MPV 10.60 (7.40-12.00) fL Neut % (Auto) 70.1 (48.0-80.0) % Lymph % (Auto) 17.5 (16.0-40.0) % [place] % (Auto) 11.5 (0.0-15.0) % Eos % (Auto) 0.0 (0.0-7.0) % Baso % (Auto) 0.9 (0.0-1.5) % Neut # (Auto) 3.2 (1.4-5.7) K/uL Lymph # (Auto) 0.8 (0.6-2.4) K/uL [place] # (Auto) 0.5 (0.0-0.8) K/uL Eos # (Auto) 0.0 (0.0-0.7) K/uL Baso # (Auto) 0.0 (0.0-0.1) K/uL Nucleated RBC % 0.0 /100WBC Nucleated RBCs # 0 K/uL Sodium 132 L (136-148) mmol/L Potassium 4.3 (3.5-5.1) mmol/L Chloride 97 L (98-107) mmol/L Carbon Dioxide 29.2 (21.0-32.0) mmol/L BUN 14 (7.0-18.0) mg/dL Creatinine 1.2 (0.8-1.3) mg/dL Est Cr Clr Drug Dosing 79.81 mL/min Estimated GFR (MDRD) > 60.0 ml/min Glucose 140 H (74-106) mg/dL Calcium 7.7 L (8.5-10.1) mg/dL Total Bilirubin 0.6 (0.2-1.0) mg/dL AST 76 H (15-37) IU/L ALT 80 H (14-63) IU/L Alkaline Phosphatase 32 L (46-116) U/L Total Protein 6.4 (6.4-8.2) g/dL Albumin 2.5 L (3.4-5.0) g/dL Globulin 3.9 (2.6-4.0) g/dL Albumin/Globulin Ratio 0.6 L (0.9-1.6) Med Orders - Current: Current Medications Albuterol/Ipratropium (Albuterol/Ipratropium 4 Gm Inhalation [place]) 1 gm INH Q4H PRN PRN Reason: Dyspnea Dexamethasone (Dexamethasone 4 Mg Tab) 6 mg PO Q24H [facility]M Last Admin: 06/30/21 16:41 Dose: 6 mg Documented by: Enoxaparin Sodium (Enoxaparin 40 Mg/0.4 Ml Syringe) 40 mg SUBCUT Q24H [facility] Last Admin: 06/30/21 16:42 Dose: 40 mg Documented by: Guaifenesin/Codeine Phosphate (Codeine/Guaifenesin 10-100 Mg/5 Ml Syrup 5 Ml Cup) 5 ml PO Q6H PRN PRN Reason: Cough Last Admin: 07/01/21 11:46 Dose: 5 ml Documented by: Remdesivir 100 mg/ Sodium (Chloride) 100 mls @ 100 mls/hr IV Q24H [facility] Stop: 07/02/21 18:29 Last Admin: 06/30/21 16:35 Dose: 100 mls/hr Documented by: Sodium Chloride (Sodium Chloride 0.9% 10 Ml Syringe) 10 ml FLUSH ASDIRECTED PRN PRN Reason: Keep Vein Open Last Admin: 06/28/21 14:28 Dose: 10 ml Documented by: Sodium Chloride (Sodium Chloride 0.9% 2.5 Ml Syringe) 2.5 ml FLUSH ASDIRECTED PRN PRN Reason: Keep Vein Open Last Admin: 06/28/21 14:28 Dose: 2.5 ml Documented by: Discontinued Medications Dexamethasone (Dexamethasone 10 Mg/Ml Sdv) 6 mg IVPUSH ONETIME ONE Stop: 06/28/21 13:49 Last Admin: 06/28/21 14:28 Dose: 6 mg Documented by: Remdesivir 200 mg/ Sodium (Chloride) 250 mls @ 250 mls/hr IV ONETIME ONE Stop: 06/28/21 17:03 Last Admin: 06/28/21 17:46 Dose: 250 mls/hr Documented by: Sodium Chloride (Normal Saline) 1,000 mls @ 250 mls/hr IV STAT STA Stop: 06/28/21 21:01 Last Admin: 06/28/21 17:50 Dose: Not Given Documented by: Sodium Chloride (Normal Saline) 500 mls @ 250 mls/hr IV STAT STA Stop: 06/28/21 19:01 Last Admin: 06/28/21 17:46 Dose: 250 mls/hr Documented by: Sodium Chloride (Normal Saline) 1,000 mls @ 125 mls/hr IV ASDIRECTED [facility]M Last Admin: 06/30/21 03:55 Dose: 125 mls/hr Documented by: Iopamidol (Iopamidol 755 Mg/Ml 500 Ml Multipack Bottle) [address] A Stop: 06/28/21 16:24 Last Admin: 06/28/21 16:24 Dose: 75 ml Documented by: - Exam General: Alert, Oriented, Cooperative, No Acute Distress Lungs: Decreased Breath Sounds, Crackles (Bibasilar crackles). No: Normal Respiratory Effort (Dyspnea) Cardiovascular: Regular Rate, Regular Rhythm Back Exam: Normal Inspection, Full Range of Motion Extremities: Normal Inspection, Normal Range of Motion, Non-Tender, No Pedal Edema Neurological: No New Focal Deficit Psy/Mental Status: Alert, Normal Affect, Normal Mood - Patient Data Lab Results Last 24 hrs: Laboratory Results - last 24 hr 07/01/21 07/01/21 Range/Units 06:02 06:02 WBC 4.52 (4.0-11.0) K/uL RBC 4.87 (4.50-5.90) M/uL Hgb 13.7 (13.0-17.0) g/dL Hct 39.8 (38.0-50.0) % MCV 81.7 (80.0-98.0) fL MCH 28.1 (27.0-32.0) pg MCHC 34.4 (31.0-37.0) g/dL RDW Std Deviation 42.1 (28.0-62.0) fl RDW Coeff of Giuliana 14 (11.0-15.0) % Plt Count 179 (150-400) K/uL MPV 10.60 (7.40-12.00) fL Neut % (Auto) 70.1 (48.0-80.0) % Lymph % (Auto) 17.5 (16.0-40.0) % Parker % (Auto) 11.5 (0.0-15.0) % Eos % (Auto) 0.0 (0.0-7.0) % Baso % (Auto) 0.9 (0.0-1.5) % Neut # (Auto) 3.2 (1.4-5.7) K/uL Lymph # (Auto) 0.8 (0.6-2.4) K/uL Parker # (Auto) 0.5 (0.0-0.8) K/uL Eos # (Auto) 0.0 (0.0-0.7) K/uL Baso # (Auto) 0.0 (0.0-0.1) K/uL Nucleated RBC % 0.0 /100WBC Nucleated RBCs # 0 K/uL Sodium 132 L (136-148) mmol/L Potassium 4.3 (3.5-5.1) mmol/L Chloride 97 L (98-107) mmol/L Carbon Dioxide 29.2 (21.0-32.0) mmol/L BUN 14 (7.0-18.0) mg/dL Creatinine 1.2 (0.8-1.3) mg/dL Est Cr Clr Drug Dosing 79.81 mL/min Estimated GFR (MDRD) > 60.0 ml/min Glucose 140 H (74-106) mg/dL Calcium 7.7 L (8.5-10.1) mg/dL Total Bilirubin 0.6 (0.2-1.0) mg/dL AST 76 H (15-37) IU/L ALT 80 H (14-63) IU/L Alkaline Phosphatase 32 L (46-116) U/L Total Protein 6.4 (6.4-8.2) g/dL Albumin 2.5 L (3.4-5.0) g/dL Globulin 3.9 (2.6-4.0) g/dL Albumin/Globulin Ratio 0.6 L (0.9-1.6) Result Diagrams: 07/01/21 06:02 07/01/21 06:02 Sepsis Event Note - Evaluation Sepsis Screening Result: Possible Sepsis Risk - Focused Exam Vital Signs: Vital Signs Temp Pulse Resp BP Pulse Ox 07/01/21 11:43 97.1 F 69 108/77 91 L 07/01/21 08:00 96.5 F L 79 22 H 107/86 91 L 07/01/21 04:00 97.0 F 82 40 H 108/76 90 L - Problem List & Annotations (1) Acute respiratory failure with hypoxia SNOMED Code(s): 92452841, 934752883 Code(s): J96.01 - ACUTE RESPIRATORY FAILURE WITH HYPOXIA Status: Acute Current Visit: Yes (2) COVID-19 SNOMED Code(s): 703927446 Code(s): U07.1 - COVID-19 Status: Acute Current Visit: Yes (3) Hyponatremia SNOMED Code(s): 79867758 Code(s): E87.1 - HYPO-OSMOLALITY AND HYPONATREMIA Status: Acute Current Visit: Yes - Problem List Review Problem List Initiated/Reviewed/Updated: Yes - My Orders Last 24 Hours: My Active Orders 07/01/21 11:37 Inspector Final Assembly Conveyor Line Discontinue [Cardiac Monitoring Discontinue] [RC] Click to Edit - Plan Plan:: 46 yo male admitted for acute hypoxic respiratory failure due to COVID pneumonia. COVID pneumonia: continue with dexamethasone and remdesivir. Will wean supplemental NC oxygen as tolerated. patient desats with exertion. Patient on and off oxygen but appears dyspneic with speech as well as exertion. Continue remdesivir for 1 more dose. Hyponatremia: sodium 132 this morning, continue to monitor Lovenox for DVT prophylaxis
[2021-07-01] MEDS: REMDESIVIR 100 MG in Sodium Chloride 0.9% 100 ML IV SCH (17:06)
[2021-07-01] MEDS: Dexamethasone 4 MG Tab PO SCH (17:11)
[2021-07-01] MEDS: Enoxaparin 40 MG/0.4 ML Syringe SUBCUT SCH (17:12)
[2021-07-02] MEDS: Codeine/guaiFENesin 10-100 MG/5 ML Syrup 5 ML Cup PO PRN ×2 (04:55→10:54)
[2021-07-02 06:49] LABS: CARBON DIOXIDE,CO2 29.6 mmol/L (21.0-32.0); POTASSIUM,K 4.4 mmol/L (3.5-5.1)
[2021-07-02] MEDS ORDERED: REMDESIVIR 100 MG in Sodium Chloride 0.9% 100 ML IV SCH (12:15)
--- NOTE | 2021-07-02 12:18 | PCM.DCSUM1 ---
Discharge Summary - Discharge Data Discharge Date: 07/02/21 Discharge Disposition: Home, Self-Care 01 Condition: Stable - Referral to Home Health Primary Care Physician: Hank Katz MD - Patient Summary/Data Hospital Course: 46 yo male who presented with ten day history of shortness of breath, cough, and fevers. IN the ED he was noted to be hypoxic requiring simple NC to keep sats a david 90%. He tested positive for COVID and had a sodium of 125. Patient had CT angio which was negative for PE but reports moderate to severe COVID pneumonia. He was admitted for acute hypoxic respiratory failure due to COVID pneumonia. He was treated with dexamethasone and remdesivir for five days. His hyponatremia resolved. Today he is feeling better and requesting discharge. I discussed risk vs benefits of early discharge and patient preferred to go home. He was requiring 3 L NC to keep sats above 90%. He was initially reluctant to use home oxygen but he has now agreed to do so. He is to follow up with Dr. Navas. - Patient Instructions Diet: Regular Diet as Tolerated Activity: No Strenuous Activities Other/Special Instructions: Notify provider if increasing shortness of breath, chest pain, fevers, or change in productive cough. - Discharge Plan Prescriptions/Med Rec: dexAMETHasone [Dexamethasone] 6 mg PO Q24H 5 Days #8 tablet Home Medications: Home Meds dexAMETHasone [Dexamethasone] 6 mg PO Q24H 5 Days #8 tablet 07/02/21 [Rx] Oxygen Therapy Mode: Nasal Cannula Oxygen Flow Rate (L/min): 3 Patient Handouts: COVID-19, 10 Things You Can Do to Manage Your COVID-19 Symptoms at Home - CDC (04/23/2020), Home Oxygen Use, Adult, COVID-19: How to Protect Yourself and Others - CDC, Infection Prevention in the Home, Dexamethasone tablets Referrals: Hank Katz MD [Primary Care Provider] - 07/13/21 1:00 pm - Discharge Summary/Plan Comment DC Time >30 min.: No Total # of Minutes for Discharge Time: 20 - Patient Data Vitals - Most Recent: Last Vital Signs Temp 35.3 C L 07/02/21 09:25 Pulse 84 07/02/21 09:25 Resp 22 H 07/02/21 09:25 BP 124/79 07/02/21 09:25 Pulse Ox 87 L 07/02/21 10:54 Weight - Most Recent: 123.74 kg I&O - Last 24 hours: Intake & Output 07/01/21 07/02/21 07/02/21 22:59 06:59 14:59 Intake Total 1340 620 Balance 1340 620 Lab Results - Last 24 hrs: Laboratory Results - last 24 hr 07/02/21 07/02/21 Range/Units 05:35 05:35 WBC 6.42 (4.0-11.0) K/uL RBC 4.98 (4.50-5.90) M/uL Hgb 14.0 (13.0-17.0) g/dL Hct 41.1 (38.0-50.0) % MCV 82.5 (80.0-98.0) fL MCH 28.1 (27.0-32.0) pg MCHC 34.1 (31.0-37.0) g/dL RDW Std Deviation 42.2 (28.0-62.0) fl RDW Coeff of Giuliana 14 (11.0-15.0) % Plt Count 215 (150-400) K/uL MPV 10.50 (7.40-12.00) fL Add Manual Diff YES Neutrophils % (Manual) 79 (48.0-80.0) % Lymphocytes % (Manual) 14 L (16.0-40.0) % Monocytes % (Manual) 7 (0.0-15.0) % Nucleated RBC % 0.0 /100WBC Absolute Seg Neuts 5.1 (1.4-5.7) Lymphocytes # (Manual) 0.9 (0.6-2.4) Monocytes # (Manual) 0.4 (0.0-0.8) Nucleated RBCs # 0 K/uL Sodium 134 L (136-148) mmol/L Potassium 4.4 (3.5-5.1) mmol/L Chloride 98 (98-107) mmol/L Carbon Dioxide 29.6 (21.0-32.0) mmol/L BUN 16 (7.0-18.0) mg/dL Creatinine 1.3 (0.8-1.3) mg/dL Est Cr Clr Drug Dosing 73.67 mL/min Estimated GFR (MDRD) 59.2 ml/min Glucose 122 H (74-106) mg/dL Calcium 7.7 L (8.5-10.1) mg/dL Total Bilirubin 0.6 (0.2-1.0) mg/dL AST 106 H (15-37) IU/L ALT 141 H (14-63) IU/L Alkaline Phosphatase 36 L (46-116) U/L Total Protein 6.2 L (6.4-8.2) g/dL Albumin 2.5 L (3.4-5.0) g/dL Globulin 3.7 (2.6-4.0) g/dL Albumin/Globulin Ratio 0.7 L (0.9-1.6) Med Orders - Current: Current Medications Albuterol/Ipratropium (Albuterol/Ipratropium 4 Gm Inhalation [place]) 1 gm INH Q4H PRN PRN Reason: Dyspnea Last Admin: 07/01/21 21:02 Dose: 2 puff Documented by: Dexamethasone (Dexamethasone 4 Mg Tab) 6 mg PO Q24H [facility] Last Admin: 07/01/21 17:11 Dose: 6 mg Documented by: Enoxaparin Sodium (Enoxaparin 40 Mg/0.4 Ml Syringe) 40 mg SUBCUT Q24H [facility] Last Admin: 07/01/21 17:12 Dose: 40 mg Documented by: Guaifenesin/Codeine Phosphate (Codeine/Guaifenesin 10-100 Mg/5 Ml Syrup 5 Ml Cup) 5 ml PO Q6H PRN PRN Reason: Cough Last Admin: 07/02/21 10:54 Dose: 5 ml Documented by: Remdesivir 100 mg/ Sodium (Chloride) 100 mls @ 100 mls/hr IV Q24H [facility] Stop: 07/02/21 18:29 Last Admin: 07/01/21 17:06 Dose: 100 mls/hr Documented by: Sodium Chloride (Sodium Chloride 0.9% 10 Ml Syringe) 10 ml FLUSH ASDIRECTED PRN PRN Reason: Keep Vein Open Last Admin: 06/28/21 14:28 Dose: 10 ml Documented by: Sodium Chloride (Sodium Chloride 0.9% 2.5 Ml Syringe) 2.5 ml FLUSH ASDIRECTED PRN PRN Reason: Keep Vein Open Last Admin: 06/28/21 14:28 Dose: 2.5 ml Documented by: Discontinued Medications Dexamethasone (Dexamethasone 10 Mg/Ml Sdv) 6 mg IVPUSH ONETIME ONE Stop: 06/28/21 13:49 Last Admin: 06/28/21 14:28 Dose: 6 mg Documented by: Remdesivir 200 mg/ Sodium (Chloride) 250 mls @ 250 mls/hr IV ONETIME ONE Stop: 06/28/21 17:03 Last Admin: 06/28/21 17:46 Dose: 250 mls/hr Documented by: Sodium Chloride (Normal Saline) 1,000 mls @ 250 mls/hr IV STAT STA Stop: 06/28/21 21:01 Last Admin: 06/28/21 17:50 Dose: Not Given Documented by: Sodium Chloride (Normal Saline) 500 mls @ 250 mls/hr IV STAT STA Stop: 06/28/21 19:01 Last Admin: 06/28/21 17:46 Dose: 250 mls/hr Documented by: Sodium Chloride (Normal Saline) 1,000 mls @ 125 mls/hr IV ASDIRECTED [facility] Last Admin: 06/30/21 03:55 Dose: 125 mls/hr Documented by: Iopamidol (Iopamidol 755 Mg/Ml 500 Ml Multipack Bottle) 75 ml IVPUSH ONETIME STA Stop: 06/28/21 16:24 Last Admin: 06/28/21 16:24 Dose: 75 ml Documented by:
== END 2021-07-02 14:07 | disposition home or self-care (01) | DRG 137 ==
LOC: MW.ED 13:21 → MW.MS 16:03 → UNDOADMIN 16:03 → MW.MS 17:03
PROVIDERS: ADMIT Internal Medicine; ATTEND Internal Medicine
PROC: XW033E5 Introduction of Remdesivir Anti-infective into Peripheral Vein, Percutaneous Approach, New Technology Group 5 (ICD-10-PCS; principal; 2021-06-28)
PROC: 3E0333Z Introduction of Anti-inflammatory into Peripheral Vein, Percutaneous Approach (ICD-10-PCS; 2021-06-28)
PROC: 3E0DX3Z Introduction of Anti-inflammatory into Mouth and Pharynx, External Approach (ICD-10-PCS; 2021-06-28)
DX: U07.1 COVID-19 (principal); J12.82 Pneumonia due to coronavirus disease 2019; J96.01 Acute respiratory failure with hypoxia; E87.1 Hypo-osmolality and hyponatremia
CPT/HCPCS: 36415; 71045; 71045-26; 71275; 71275-26; 80048; 80053; 80076; 83605; 83735; 84484; 85025; 85379; 85610; 85730; 86140; 93005; 96374; 99285-25; A9270-GY; J1100; J1650; J7030; J7050; J8540; Q9967

== ENCOUNTER 2021-07-03 21:46 | Inpatient (IN) | payer BC ==
--- NOTE | 2021-07-03 22:03 | EDM.PDOC ---
ED HPI GENERAL MEDICAL PROBLEM - General Chief Complaint: Neurological Problem Stated Complaint: COVID POSITIVE Time Seen by Provider: 07/03/21 21:47 Source of Information: Reports: EMS History Limitations: Reports: Altered Mental Status - History of Present Illness INITIAL COMMENTS - FREE TEXT/NARRATIVE: Patient is a 46-year-old male was brought in today for altered mental status and hypoxia. Patient was admitted here yesterday and spent a few days in the hospital due to Covid symptoms. He was discharged home O2 but when EMS arrived patient was sitting near without any close on not on any oxygen. They states his oxygen was in the mid 80s they put him on a nonrebreather and got up to the mid 90s. Patient did not know where he was that he cannot state the year but kn ew his name and is able to follow some commands but seems confused. Patient lives alone and has some blood around his nose but no clear source where they came from. Patient family not seen him for a few hours that we will check on him and he was just found without any clothes on altered. - Related Data Allergies Allergy/AdvReac Type Severity Reaction Status Date / Time No Known Allergies Allergy Verified 07/03/21 22:05 Home Meds: Home Meds dexAMETHasone [Dexamethasone] 6 mg PO Q24H 5 Days #8 tablet 07/02/21 [Rx] Past Medical History - Past Health History Medical/Surgical History: Denies Medical/Surgical History HEENT History: Reports: None Cardiovascular History: Reports: None Respiratory History: Reports: None Gastrointestinal History: Reports: None Genitourinary History: Reports: None Musculoskeletal History: Reports: None Neurological History: Reports: None Psychiatric History: Reports: None Hematologic History: Reports: None Dermatologic History: Reports: None - Infectious Disease History Infectious Disease History: Reports: Chicken Pox - Past Surgical History HEENT Surgical History: Reports: Tonsillectomy Male Surgical History: Reports: None Social & Family History - Family History Family Medical History: No Pertinent Family History - Caffeine Use Caffeine Use: Reports: Coffee ED ROS GENERAL - Review of Systems Review Of Systems: Unable To Obtain Reason Not Obtained: Altered mental status - Physical Exam Exam: See Below Exam Limited By: Altered Mental Status General Appearance: Alert Eye Exam: Bilateral Eye: EOMI, PERRL Head Exam: Atraumatic, Normocephalic Neck: Normal Inspection Respiratory/Chest: No Respiratory Distress, Lungs Clear, Normal Breath Sounds Cardiovascular: Normal Peripheral Pulses, Regular Rate, Rhythm GI/Abdominal: Normal Bowel Sounds, Soft, Non-Tender Neuro Exam (Abbreviated): Other (And O x1 following commands but does not know where he is or what year) Extremities: Normal Inspection, Normal Range of Motion #1 Interpretation EKG Date: 07/03/21 Time: 22:54 Rhythm: Other (sinus tach) Rate (Beats/Min): 103 ST-T: Normal Course - Vital Signs Last Recorded V/S: Last Vital Signs Temp 97 F 07/03/21 22:55 Pulse 104 H 07/03/21 23:55 Resp 30 H 07/03/21 23:55 BP 129/83 07/03/21 23:55 Pulse Ox 95 07/03/21 23:55 - Orders/Labs/Meds Orders: Active Orders 24 hr Category Date Time Status Patient Status [ADT] Routine ADT 07/04/21 00:12 Ordered CPAP Adult [RT BiPAP/CPAP] [RC] ASDIRECTED Care 07/04/21 00:10 Active INR,PT,PROTHROMBIN TIME [COAG] Stat Lab 07/03/21 23:54 Received PTT,PARTIAL THROMBOPLSTIN TIME [COAG] Stat Lab 07/03/21 23:54 Received RT Oxygen High Flow [RESPCARE] Stat Oth 07/03/21 23:36 Active Labs: Laboratory Tests 07/03/21 07/03/21 07/03/21 Range/Units 22:00 22:07 22:07 WBC 12.15 H (4.0-11.0) K/uL RBC 4.70 (4.50-5.90) M/uL Hgb 13.7 (13.0-17.0) g/dL Hct 37.2 L (38.0-50.0) % MCV 79.1 L (80.0-98.0) fL MCH 29.1 (27.0-32.0) pg MCHC 36.8 (31.0-37.0) g/dL RDW Std Deviation 38.0 (28.0-62.0) fl RDW Coeff of Giuliana 13 (11.0-15.0) % Plt Count 177 (150-400) K/uL MPV 9.90 (7.40-12.00) fL Neut % (Auto) 81.0 H (48.0-80.0) % Lymph % (Auto) 13.3 L (16.0-40.0) % [place] % (Auto) 5.4 (0.0-15.0) % Eos % (Auto) 0.1 (0.0-7.0) % Baso % (Auto) 0.2 (0.0-1.5) % Neut # (Auto) 9.8 H (1.4-5.7) K/uL Lymph # (Auto) 1.6 (0.6-2.4) K/uL [place] # (Auto) 0.7 (0.0-0.8) K/uL Eos # (Auto) 0.0 (0.0-0.7) K/uL Baso # (Auto) 0.0 (0.0-0.1) K/uL Nucleated RBC % 0.0 /100WBC Nucleated RBCs # 0 K/uL ABG pH (7.35-7.45) ABG pCO2 (35-45) mmHG ABG pO2 (80-105) mmHG ABG HCO3 (22-26) mEq/L ABG Total CO2 (23-27) mmol/L ABG Base Excess (-2.0-3.0) Sodium 128 L (136-148) mmol/L Potassium 3.6 (3.5-5.1) mmol/L Chloride 92 L (98-107) mmol/L Carbon Dioxide 24.7 (21.0-32.0) mmol/L BUN 10 (7.0-18.0) mg/dL Creatinine 1.2 (0.8-1.3) mg/dL Est Cr Clr Drug Dosing TNP Estimated GFR (MDRD) > 60.0 ml/min Glucose 106 (74-106) mg/dL Calcium 8.0 L (8.5-10.1) mg/dL Total Bilirubin 1.2 H (0.2-1.0) mg/dL AST 101 H (15-37) IU/L ALT 129 H (14-63) IU/L Alkaline Phosphatase 42 L (46-116) U/L Troponin I < 0.050 (0.000-0.056) ng/mL Total Protein 6.5 (6.4-8.2) g/dL Albumin 2.5 L (3.4-5.0) g/dL Globulin 4.0 (2.6-4.0) g/dL Albumin/Globulin Ratio 0.6 L (0.9-1.6) Urine Opiates Screen NEGATIVE (NEGATIVE) Ur Oxycodone Screen NEGATIVE (NEGATIVE) Urine Methadone Screen NEGATIVE (NEGATIVE) Ur Barbiturates Screen NEGATIVE (NEGATIVE) Ur Phencyclidine Scrn NEGATIVE (NEGATIVE) Ur Amphetamine Screen NEGATIVE (NEGATIVE) U Methamphetamines Scrn NEGATIVE (NEGATIVE) U Benzodiazepines Scrn NEGATIVE (NEGATIVE) U Cocaine Metab Screen NEGATIVE (NEGATIVE) U Marijuana (THC) Screen NEGATIVE (NEGATIVE) Ethyl Alcohol < 3.0 mg/dL 07/03/21 Range/Units 22:10 WBC (4.0-11.0) K/uL RBC (4.50-5.90) M/uL Hgb (13.0-17.0) g/dL Hct (38.0-50.0) % MCV (80.0-98.0) fL MCH (27.0-32.0) pg MCHC (31.0-37.0) g/dL RDW Std Deviation (28.0-62.0) fl RDW Coeff of Giuliana (11.0-15.0) % Plt Count (150-400) K/uL MPV (7.40-12.00) fL Neut % (Auto) (48.0-80.0) % Lymph % (Auto) (16.0-40.0) % [place] % (Auto) (0.0-15.0) % Eos % (Auto) (0.0-7.0) % Baso % (Auto) (0.0-1.5) % Neut # (Auto) (1.4-5.7) K/uL Lymph # (Auto) (0.6-2.4) K/uL [place] # (Auto) (0.0-0.8) K/uL Eos # (Auto) (0.0-0.7) K/uL Baso # (Auto) (0.0-0.1) K/uL Nucleated RBC % /100WBC Nucleated RBCs # K/uL ABG pH 7.53 H (7.35-7.45) ABG pCO2 28 L (35-45) mmHG ABG pO2 96 (80-105) mmHG ABG HCO3 23 (22-26) mEq/L ABG Total CO2 20.2 L (23-27) mmol/L ABG Base Excess 1.3 (-2.0-3.0) Sodium (136-148) mmol/L Potassium (3.5-5.1) mmol/L Chloride (98-107) mmol/L Carbon Dioxide (21.0-32.0) mmol/L BUN (7.0-18.0) mg/dL Creatinine (0.8-1.3) mg/dL Est Cr Clr Drug Dosing Estimated GFR (MDRD) ml/min Glucose (74-106) mg/dL Calcium (8.5-10.1) mg/dL Total Bilirubin (0.2-1.0) mg/dL AST (15-37) IU/L ALT (14-63) IU/L Alkaline Phosphatase (46-116) U/L Troponin I (0.000-0.056) ng/mL Total Protein (6.4-8.2) g/dL Albumin (3.4-5.0) g/dL Globulin (2.6-4.0) g/dL Albumin/Globulin Ratio (0.9-1.6) Urine Opiates Screen (NEGATIVE) Ur Oxycodone Screen (NEGATIVE) Urine Methadone Screen (NEGATIVE) Ur Barbiturates Screen (NEGATIVE) Ur Phencyclidine Scrn (NEGATIVE) Ur Amphetamine Screen (NEGATIVE) U Methamphetamines Scrn (NEGATIVE) U Benzodiazepines Scrn (NEGATIVE) U Cocaine Metab Screen (NEGATIVE) U Marijuana (THC) Screen (NEGATIVE) Ethyl Alcohol mg/dL - Re-Assessments/Exams Free Text/Narrative Re-Assessment/Exam: 07/03/21 23:44 Patient became slightly more confused and became a little hypoxic he was increased to 15 L on a nonrebreather. Patient labs and CTs are back we will admit patient to hospital however will trial high flow here to try to wean him off the BiPAP. Departure - Departure Time of Disposition: 00:13 Disposition: Admitted As Inpatient 65 Condition: Good Clinical Impression: Hypoxia, AMS (altered mental status), COVID - Discharge Information Referrals: PCP,None [Primary Care Provider] - Forms: ED Department Discharge Critical Care Note - Critical Care Note Total Time (mins): 55 Comments: Critical Care Procedure Note Authorized and Performed by: Dr. Mason Total critical care time: Approximately Due to a high probability of clinically significant, life threatening deterioration, the patient required my highest level of preparedness to intervene emergently and I personally spent this critical care time directly and personally managing the patient. This critical care time included obtaining a history; examining the patient; pulse oximetry; ordering and review of studies; arranging urgent treatment with development of a management plan; evaluation of patient's response to treatment; frequent reassessment; and, discussions with other providers. This critical care time was performed to assess and manage the high probability of imminent, life-threatening deterioration that could result in multi-organ failure. It was exclusive of separately billable procedures and treating other patients and teaching time. Sepsis Event Note (ED) - Focused Exam Vital Signs: Vital Signs Temp Pulse Resp BP Pulse Ox 07/03/21 23:55 104 H 30 H 129/83 95 07/03/21 22:55 97 F 105 H 28 H 139/91 H 95 07/03/21 22:00 95 07/03/21 21:50 97.5 F 110 H 32 H 145/90 H 88 L - My Orders Last 24 Hours: My Active Orders 07/03/21 23:36 RT Oxygen High Flow [RESPCARE] Stat 07/03/21 23:54 INR,PT,PROTHROMBIN TIME [COAG] Stat PTT,PARTIAL THROMBOPLSTIN TIME [COAG] Stat 07/04/21 00:10 CPAP Adult [RT BiPAP/CPAP] [RC] ASDIRECTED 07/04/21 00:12 Patient Status [ADT] Routine - Assessment/Plan Last 24 Hours: My Active Orders 07/03/21 23:36 RT Oxygen High Flow [RESPCARE] Stat 07/03/21 23:54 INR,PT,PROTHROMBIN TIME [COAG] Stat PTT,PARTIAL THROMBOPLSTIN TIME [COAG] Stat 07/04/21 00:10 CPAP Adult [RT BiPAP/CPAP] [RC] ASDIRECTED 07/04/21 00:12 Patient Status [ADT] Routine Plan: Patient is a 46-year-old male who presents today for altered mental status after being discharged for Covid symptoms. Patient is confused on exam he satting around in the 80s on room air but is no agreeable sat 94%. Will obtain labs x- ray ABGs and reassess.
[2021-07-03 22:44] LABS: BLOOD UREA NITROGEN,BUN 10 mg/dL (7.0-18.0); CARBON DIOXIDE,CO2 24.7 mmol/L (21.0-32.0); CHLORIDE,CL 92 mmol/L (98-107); GLUCOSE RANDOM 106 mg/dL (74-106); POTASSIUM,K 3.6 mmol/L (3.5-5.1); SODIUM,NA 128 mmol/L (136-148)
--- NOTE | 2021-07-03 23:10 | CR ---
Indication: COVID positive. Altered mental status. Technique: Chest 1 view. Comparison: 06/28/2021. Findings/Impression: Cardiovascular and mediastinum: Heart size and vasculature are normal in caliber and appearance. Lungs and pleural space: Interval worsening of diffuse bilateral ill-defined pulmonary infiltrates consistent with COVID pneumonitis. No effusions and no pneumothorax. Bones and soft tissues: No acute findings. Dictated by Neil Esposito MD @ 07/03/2021 11:07:56 PM (Electronically Signed)
--- NOTE | 2021-07-03 23:25 | CT ---
INDICATION: Altered mental status. TECHNIQUE: CT head without contrast. COMPARISON: None. FINDINGS: CSF spaces: Within normal limits for age. Brain parenchyma and extra-axial spaces: The pina-white differentiation is normal. No sign of mass, hemorrhage, or midline shift. No extra-axial fluid collection. Skull base and calvarium: Inflammatory changes are present in the paranasal sinuses. The visualized orbits are grossly unremarkable. No skull fractures. IMPRESSION: Moderate paranasal sinus inflammatory disease. No intracranial abnormality. No other finding to explain altered mental status. Please note that all CT scans at this facility use dose modulation, iterative reconstruction, and/or weight-based dosing when appropriate to reduce radiation dose to as low as reasonably achievable. Dictated by Neil Esposito MD @ 07/03/2021 11:24:04 PM (Electronically Signed)
[2021-07-04] MEDS ORDERED: LORazepam 2 MG/ML SDV IVPUSH ONE (01:31)
[2021-07-04] MEDS ORDERED: Ondansetron 4 MG/2 ML SDV IVPUSH ONE (01:32)
[2021-07-04] MEDS ORDERED: Ondansetron 4 MG/2 ML SDV IVPUSH PRN (01:39)
[2021-07-04] MEDS ORDERED: Albuterol/Ipratropium 3.0-0.5 MG/3 ML Neb Soln NEB PRN (01:39)
--- NOTE | 2021-07-04 01:57 | PCM.HP.2 ---
H&P History of Present Illness - General Date of Service: 07/04/21 Admit Problem/Dx: Admission Diagnosis/Problem Admission Diagnosis/Problem Altered mental status - History of Present Illness Initial Comments - Free Text/Narative: Patient is a 46-year-old male who was recently discharged from hospital after completing 5 days of remdesivir, , h/o non-compliance to nasal cannula, was brought in today for altered mental status and hypoxia. when EMS arrived patient was not on any oxygen, They states his oxygen was in the mid 80s they put him on a nonrebreather and got up to the mid 90s. Patient was consusedin ER AAO*1, Patient lives alone and has some blood around his nose but no clear source where they came from. Patient family not seen him for a few hours that we will check on him and he was just found without any clothes on altered. Lab work in ER showed mild hyponatremia, mild leucocytosis, troponin negative, some transaminitis , Patient was started on CPAP as HFNC was not available, CT head was negative, Patient was admitted to ICU for further care. During my encounter patient was very restless and took off his mask off which i immediately put back on. - Related Data Allergies/Adverse Reactions: Allergies Allergy/AdvReac Type Severity Reaction Status Date / Time No Known Allergies Allergy Verified 07/03/21 22:05 Home Medications: Home Meds dexAMETHasone [Dexamethasone] 6 mg PO Q24H 5 Days #8 tablet 07/02/21 [Rx] Past Medical History - Past Health History Medical/Surgical History: Denies Medical/Surgical History HEENT History: Reports: None Cardiovascular History: Reports: None Respiratory History: Reports: SOB, Other (See Below) Other Respiratory History: COVID PNEUMONIA SENT HOME ON HOME 02 Gastrointestinal History: Reports: None Genitourinary History: Reports: None Musculoskeletal History: Reports: None Neurological History: Reports: None Psychiatric History: Reports: None Endocrine/Metabolic History: Reports: None Insulin Pump Model and Head Sampler: None Hematologic History: Reports: None Immunologic History: Reports: None Oncologic (Cancer) History: Reports: None Dermatologic History: Reports: None - Infectious Disease History Infectious Disease History: Reports: Chicken Pox, Novel Coronavirus Other Infectious Disease History: COVID - Past Surgical History HEENT Surgical History: Reports: Tonsillectomy Male Surgical History: Reports: None Social & Family History - Family History Family Medical History: No Pertinent Family History - Tobacco Use Tobacco Use Status *Q: Unknown Ever Used Tobacco - Caffeine Use Caffeine Use: Reports: Coffee - Recreational Drug Use Recreational Drug Use: No H&P Review of Systems - Review of Systems: Review Of Systems: See Below General: Reports: Malaise, Weakness, Fatigue. Denies: Fever, Chills Pulmonary: Reports: Shortness of Breath. Denies: Wheezing, Cough, Sputum Gastrointestinal: Denies: Abdominal Pain, Anorexia, Black Stool Genitourinary: Denies: Dysuria, Frequency, Burning, Pain Musculoskeletal: Denies: Neck Pain, Shoulder Pain, Arm Pain Skin: Denies: Cyanosis, Jaundice, Mottled Psychiatric: Reports: Confusion, Anxiety, Agitation. Denies: Depression, Mood Lability, Cravings, Hallucinations Neurological: Denies: Dizziness, Headache, Numbness Hematologic/Lymphatic: Denies: Anemia, Easy Bleeding, Easy Bruising, Swollen Glands Exam - Exam Exam: See Below - Vital Signs Vital Signs: Last Vital Signs Temp 36.1 C 07/03/21 22:55 Pulse 104 H 07/03/21 23:55 Resp 30 H 07/03/21 23:55 BP 129/83 07/03/21 23:55 Pulse Ox 95 07/04/21 00:22 Weight: 107.7 kg - Exam Quality Assessment: Supplemental Oxygen General: Alert, Oriented, Moderate Distress Neck: Supple Lungs: Normal Respiratory Effort, Decreased Breath Sounds, Rales Cardiovascular: Regular Rate, Regular Rhythm, Normal S1, Normal S2 GI/Abdominal Exam: Normal Bowel Sounds, Soft, Non-Tender - Patient Data Lab Results Last 24 hrs: Laboratory Results - last 24 hr 07/03/21 07/03/21 07/03/21 Range/Units 22:00 22:07 22:07 WBC 12.15 H (4.0-11.0) K/uL RBC 4.70 (4.50-5.90) M/uL Hgb 13.7 (13.0-17.0) g/dL Hct 37.2 L (38.0-50.0) % MCV 79.1 L (80.0-98.0) fL MCH 29.1 (27.0-32.0) pg MCHC 36.8 (31.0-37.0) g/dL RDW Std Deviation 38.0 (28.0-62.0) fl RDW Coeff of Giuliana 13 (11.0-15.0) % Plt Count 177 (150-400) K/uL MPV 9.90 (7.40-12.00) fL Neut % (Auto) 81.0 H (48.0-80.0) % Lymph % (Auto) 13.3 L (16.0-40.0) % [place] % (Auto) 5.4 (0.0-15.0) % Eos % (Auto) 0.1 (0.0-7.0) % Baso % (Auto) 0.2 (0.0-1.5) % Neut # (Auto) 9.8 H (1.4-5.7) K/uL Lymph # (Auto) 1.6 (0.6-2.4) K/uL [place] # (Auto) 0.7 (0.0-0.8) K/uL Eos # (Auto) 0.0 (0.0-0.7) K/uL Baso # (Auto) 0.0 (0.0-0.1) K/uL Nucleated RBC % 0.0 /100WBC Nucleated RBCs # 0 K/uL INR APTT (18.6-31.3) SEC ABG pH (7.35-7.45) ABG pCO2 (35-45) mmHG ABG pO2 (80-105) mmHG ABG HCO3 (22-26) mEq/L ABG Total CO2 (23-27) mmol/L ABG Base Excess (-2.0-3.0) Sodium 128 L (136-148) mmol/L Potassium 3.6 (3.5-5.1) mmol/L Chloride 92 L (98-107) mmol/L Carbon Dioxide 24.7 (21.0-32.0) mmol/L BUN 10 (7.0-18.0) mg/dL Creatinine 1.2 (0.8-1.3) mg/dL Est Cr Clr Drug Dosing TNP Estimated GFR (MDRD) > 60.0 ml/min Glucose 106 (74-106) mg/dL Calcium 8.0 L (8.5-10.1) mg/dL Total Bilirubin 1.2 H (0.2-1.0) mg/dL AST 101 H (15-37) IU/L ALT 129 H (14-63) IU/L Alkaline Phosphatase 42 L (46-116) U/L Troponin I < 0.050 (0.000-0.056) ng/mL Total Protein 6.5 (6.4-8.2) g/dL Albumin 2.5 L (3.4-5.0) g/dL Globulin 4.0 (2.6-4.0) g/dL Albumin/Globulin Ratio 0.6 L (0.9-1.6) Urine Opiates Screen NEGATIVE (NEGATIVE) Ur Oxycodone Screen NEGATIVE (NEGATIVE) Urine Methadone Screen NEGATIVE (NEGATIVE) Ur Barbiturates Screen NEGATIVE (NEGATIVE) Ur Phencyclidine Scrn NEGATIVE (NEGATIVE) Ur Amphetamine Screen NEGATIVE (NEGATIVE) U Methamphetamines Scrn NEGATIVE (NEGATIVE) U Benzodiazepines Scrn NEGATIVE (NEGATIVE) U Cocaine Metab Screen NEGATIVE (NEGATIVE) U Marijuana (THC) Screen NEGATIVE (NEGATIVE) Ethyl Alcohol < 3.0 mg/dL 07/03/21 07/03/21 Range/Units 22:10 23:54 WBC (4.0-11.0) K/uL RBC (4.50-5.90) M/uL Hgb (13.0-17.0) g/dL Hct (38.0-50.0) % MCV (80.0-98.0) fL MCH (27.0-32.0) pg MCHC (31.0-37.0) g/dL RDW Std Deviation (28.0-62.0) fl RDW Coeff of Giuliana (11.0-15.0) % Plt Count (150-400) K/uL MPV (7.40-12.00) fL Neut % (Auto) (48.0-80.0) % Lymph % (Auto) (16.0-40.0) % [place] % (Auto) (0.0-15.0) % Eos % (Auto) (0.0-7.0) % Baso % (Auto) (0.0-1.5) % Neut # (Auto) (1.4-5.7) K/uL Lymph # (Auto) (0.6-2.4) K/uL [place] # (Auto) (0.0-0.8) K/uL Eos # (Auto) (0.0-0.7) K/uL Baso # (Auto) (0.0-0.1) K/uL Nucleated RBC % /100WBC Nucleated RBCs # K/uL INR 1.40 APTT 31.2 (18.6-31.3) SEC ABG pH 7.53 H (7.35-7.45) ABG pCO2 28 L (35-45) mmHG ABG pO2 96 (80-105) mmHG ABG HCO3 23 (22-26) mEq/L ABG Total CO2 20.2 L (23-27) mmol/L ABG Base Excess 1.3 (-2.0-3.0) Sodium (136-148) mmol/L Potassium (3.5-5.1) mmol/L Chloride (98-107) mmol/L Carbon Dioxide (21.0-32.0) mmol/L BUN (7.0-18.0) mg/dL Creatinine (0.8-1.3) mg/dL Est Cr Clr Drug Dosing Estimated GFR (MDRD) ml/min Glucose (74-106) mg/dL Calcium (8.5-10.1) mg/dL Total Bilirubin (0.2-1.0) mg/dL AST (15-37) IU/L ALT (14-63) IU/L Alkaline Phosphatase (46-116) U/L Troponin I (0.000-0.056) ng/mL Total Protein (6.4-8.2) g/dL Albumin (3.4-5.0) g/dL Globulin (2.6-4.0) g/dL Albumin/Globulin Ratio (0.9-1.6) Urine Opiates Screen (NEGATIVE) Ur Oxycodone Screen (NEGATIVE) Urine Methadone Screen (NEGATIVE) Ur Barbiturates Screen (NEGATIVE) Ur Phencyclidine Scrn (NEGATIVE) Ur Amphetamine Screen (NEGATIVE) U Methamphetamines Scrn (NEGATIVE) U Benzodiazepines Scrn (NEGATIVE) U Cocaine Metab Screen (NEGATIVE) U Marijuana (THC) Screen (NEGATIVE) Ethyl Alcohol mg/dL Result Diagrams: 07/04/21 05:00 07/04/21 05:00 Sepsis Event Note - Focused Exam Vital Signs: Vital Signs Temp Pulse Resp BP Pulse Ox 07/04/21 00:22 95 07/03/21 23:55 104 H 30 H 129/83 95 07/03/21 22:55 36.1 C 105 H 28 H 139/91 H 95 07/03/21 22:00 95 07/03/21 21:50 36.4 C 110 H 32 H 145/90 H 88 L - Problem List (1) AMS (altered mental status) SNOMED Code(s): 294768133 ICD Code: R41.82 - ALTERED MENTAL STATUS, UNSPECIFIED Status: Acute Current Visit: Yes (2) COVID SNOMED Code(s): 340534315 ICD Code: U07.1 - COVID-19 Status: Acute Current Visit: Yes (3) Hypoxia SNOMED Code(s): 758155230 ICD Code: R09.02 - HYPOXEMIA Status: Acute Current Visit: Yes (4) Acute respiratory failure with hypoxia SNOMED Code(s): 02369584, 319429098 ICD Code: J96.01 - ACUTE RESPIRATORY FAILURE WITH HYPOXIA Status: Acute Current Visit: No (5) Hyponatremia SNOMED Code(s): 47771641 ICD Code: E87.1 - HYPO-OSMOLALITY AND HYPONATREMIA Status: Acute Current Visit: No (6) BMI 33.0-33.9,adult SNOMED Code(s): 371004590 ICD Code: Z68.33 - BODY MASS INDEX [BMI] 33.0-33.9, ADULT Status: Acute Current Visit: Yes Problem List Initiated/Reviewed/Updated: Yes Orders Last 24hrs: Active Orders 24 hr Category Date Time Status Patient Status [ADT] Routine ADT 07/04/21 00:12 Active Ambulate [RC] ASDIRECTED Care 07/04/21 01:39 Active Antiembolic Devices [RC] PER UNIT ROUTINE Care 07/04/21 01:40 Active CPAP Adult [RT BiPAP/CPAP] [RC] ASDIRECTED Care 07/04/21 00:10 Active Oxygen Therapy [RC] PRN Care 07/04/21 01:40 Active Pulse Oximetry [RC] PRN Care 07/04/21 01:40 Active RT Aerosol Therapy [RC] ASDIRECTED Care 07/04/21 01:45 Active VTE/DVT Education [RC] PER UNIT ROUTINE Care 07/04/21 01:40 Active Vital Signs [RC] Q4H Care 07/04/21 01:40 Active Clear Liquid Diet [DIET] Diet 07/04/21 Breakfast Active CBC WITH AUTO DIFF [HEME] AM Lab 07/04/21 05:11 Ordered CMP [COMPREHENSIVE METABOLIC PN,CMP] [CHEM] AM Lab 07/04/21 05:11 Ordered D Dimer [D-DIMER QUANTITATIVE] [COAG] AM Lab 07/04/21 05:11 Ordered PROCALCITONIN [REF] Routine Lab 07/04/21 05:00 Ordered Albuterol/Ipratropium [DuoNeb 3.0-0.5 MG/3 ML] Med 07/04/21 02:00 Active 3 ml NEB Q4HRRT Azithromycin [Zithromax] Med 07/04/21 09:00 Ordered 250 mg IV Q24H Azithromycin [Zithromax] 500 mg Med 07/04/21 02:00 Ordered Sodium Chloride 0.9% [Normal Saline (AdvBag)] 250 ml IV ONETIME Enoxaparin [Lovenox] Med 07/04/21 09:00 Ordered 40 mg SUBCUT BID Ondansetron [Zofran] Med 07/04/21 01:39 Ordered 4 mg IVPUSH Q4H PRN Sodium Chloride 0.9% [Normal Saline] 250 ml Med 07/04/21 02:00 Ordered IV ASDIRECTED cefTRIAXone [Rocephin in Dextrose,Iso-Osm 1 GM/50 ML] 1 Med 07/04/21 02:00 Ordered gm Premix Bag 1 bag IV Q24H dexAMETHasone [Decadron] Med 07/04/21 02:00 Ordered 4 mg IVPUSH DAILY RT Oxygen High Flow [RESPCARE] Stat Oth 07/03/21 23:36 Active Sequential Compression Device [OM.PC] Per Unit Routine Oth 07/04/21 01:40 Ordered Medication Orders Albuterol/Ipratropium (Albuterol/Ipratropium 3.0-0.5 Mg/3 Ml Neb Soln) 3 ml NEB Q4HRRT SAMM Azithromycin (Azithromycin 500 Mg Vial) 250 mg IV Q24H SAMM Dexamethasone (Dexamethasone 4 Mg/Ml Sdv) 4 mg IVPUSH DAILY SAMM Enoxaparin Sodium (Enoxaparin 40 Mg/0.4 Ml Syringe) 40 mg SUBCUT BID SAMM Sodium Chloride (Normal Saline) 250 mls @ 125 mls/hr IV ASDIRECTED SAMM Azithromycin 500 mg/ Sodium (Chloride) 250 mls @ 250 mls/hr IV ONETIME SAMM Ceftriaxone Sodium/Dextrose 1 (gm/ Premix) 50 mls @ 100 mls/hr IV Q24H SAMM Ondansetron HCl (Ondansetron 4 Mg/2 Ml Sdv) 4 mg IVPUSH Q4H PRN PRN Reason: Nausea/Vomiting Assessment/Plan Comment:: 46 y/o M admitted for worsenign covid hypoxic respiratory failure, was d ischarghed home on 3Lts Given h/o non complinace during last visit, patient probbaly is encepahloathic due to hypoxia CT head noted cont oxygenation via CPAP for now, wean off to HF as able Remdesivir course already completed during last visit will restart Dexamethasone Start IV antibiotics for possible superimposed bacterial PNA Procalcitonin will be sent out Lovenox BID, check D-Dimer Cathie SAMM IS q1h [place]
[2021-07-04] MEDS ORDERED: Sodium Chloride 0.9% 250 ML IV SCH (02:00)
[2021-07-04] MEDS ORDERED: Azithromycin 500 MG in Sodium Chloride 0.9% 250 ML IV SCH (02:00)
[2021-07-04] MEDS ORDERED: Dexamethasone 4 MG/ML SDV IVPUSH SCH (02:00)
[2021-07-04] MEDS: cefTRIAXone 1 GM in Premix Bag 1 BAG IV SCH (02:29)
[2021-07-04] MEDS: Albuterol/Ipratropium 3.0-0.5 MG/3 ML Neb Soln NEB SCH ×6 (02:34→21:15)
[2021-07-04] MEDS ORDERED: Enoxaparin 100 MG/1 ML Syringe SUBCUT ONE (02:45)
[2021-07-04] MEDS ORDERED: Enoxaparin 60 MG/0.6 ML Syringe SUBCUT ONE (03:00)
[2021-07-04] MEDS ORDERED: Furosemide 40 MG/4 ML VIAL IVPUSH ONE (06:21)
[2021-07-04] MEDS: methylPREDNISolone Sodium Succinate 40 MG/1 ML SDV IVPUSH SCH ×3 (06:29→21:15)
--- NOTE | 2021-07-04 06:33 | PN ---
JANIE Physician - Brief Progress [id number]/11/2021 06:12[facility] Qasim Stacy, [place] - LISAN (ETHAN) - DENISE MAURISIO VILLAFANA, Covid +Date of Service 07/04/2021 0 6:12HPI/Events of Note eICU admission noteActive problems:1. Acute hypoxemic respiratory failure sec ondary to COVID-19 pneumonia2. Severe COVID-19 pneumonia3. ARDS-moderate (P/F ratio 160)4. Hyponat remia-Na+ 1285. Transaminitis possibly due to recent remdesivirHPI:History obtained from medical rec ord review and discussion with bedside ICU nurse.46-year-old male recently diagnosed with COVID-19 pn eumonia treated with remdesivir for 5 days and was sent home on oxygen. He was brought back to the ospital with hypoxemia and altered mental status. Head CT showed no acute changes. Hypoxemia improv ed with oxygen supplementation and the patient is currently on CPAP with FiO2 50%. WBC 12.1, ABG on 60% FiO2 showed pH 7.53, PCO2 28, PO2 96, bicarb 20. Sodium 128. Creatinine 1.2. Chest x-ray showe d diffuse bilateral pulmonary opacities.[facility] and 50% FiO2 comfortable without acute distressVitals: T 36.4, BP 124/64, P 95/min, RR 22, SPO2 95% on CPAP 8 and 50% HnL3Mypne, labs and images reviewedeICU recommendations:-Continue current treatment plan: Antibio tics (ceftriaxone and azithromycin), CPAP, follow-up ABG, procalcitonin, CRP-Change dexamethasone to Solu-Medrol 40 mg IV every 8 hours, monitor glucose-Lasix 40 mg IV-Monitor inflammatory markers, if C RP is elevated consider infectious disease consultation and adding Tocilizumab or Baricitib depending on availability-Monitor electrolytes and urine output-Monitor LFTs-DVT prophylaxis: Subcutaneous gaviota xaparin-Discussed with bedside ICU nurse.Thank you for allowing us to participate in the care of your patient. Please call eICU with any questions, concerns or changes in clinical condition.Interventio ns Major-Electrolyte abnormality - evaluation and management, Respiratory failure - evaluation and ma nagement
[2021-07-04 06:50] LABS: BLOOD UREA NITROGEN,BUN 11 mg/dL (7.0-18.0); CARBON DIOXIDE,CO2 25.3 mmol/L (21.0-32.0); CHLORIDE,CL 94 mmol/L (98-107); GLUCOSE RANDOM 120 mg/dL (74-106); SODIUM,NA 129 mmol/L (136-148)
[2021-07-04] MEDS ORDERED: LORazepam 2 MG/ML SDV IVPUSH PRN (08:05)
[2021-07-04] MEDS ORDERED: Azithromycin 500 MG Vial IV SCH (09:00)
[2021-07-04] MEDS ORDERED: Enoxaparin 40 MG/0.4 ML Syringe SUBCUT SCH ×2 (09:00)
--- NOTE | 2021-07-04 13:30 | PCM.PN ---
- General Info Date of Service: 07/04/21 Admission Dx/Problem (Free Text): Admission Diagnosis/Problem Admission Diagnosis/Problem Altered mental status Subjective Update: Patient seen at bedside, has been weaned off the CPAP currently on humidified high flow nasal cannula, is more awake and alert today able to answer questions, in no acute distress. Complaining of dry mouth and was able to drink some water at bedside. Patient does not recall the events that led to his admission to the hospital. Functional Status: Reports: Tolerating Diet, Urinating. Denies: Ambulating - Review of Systems General: Reports: Weakness, Fatigue, Malaise. Denies: Fever Pulmonary: Reports: Shortness of Breath, Cough. Denies: Pleuritic Chest Pain, Sputum Cardiovascular: Reports: Dyspnea on Exertion. Denies: Chest Pain, Palpitations Gastrointestinal: Denies: Abdominal Pain, Constipation, Decreased Appetite Genitourinary: Denies: Dysuria, Frequency, Burning Musculoskeletal: Denies: Neck Pain, Shoulder Pain, Arm Pain Skin: Denies: Cyanosis, Jaundice, Mottled Neurological: Reports: Confusion. Denies: Dizziness, Headache, Numbness - Patient Data Vitals - Most Recent: Last Vital Signs Temp 37.2 C 07/04/21 13:00 Pulse 104 H 07/03/21 23:55 Resp 40 H 07/04/21 13:00 BP 128/64 07/04/21 13:00 Pulse Ox 91 L 07/04/21 13:00 Weight - Most Recent: 107.7 kg I&O - Last 24 Hours: Intake & Output 07/03/21 07/04/21 07/04/21 22:59 06:59 14:59 Intake Total 240 Output Total 550 Balance -310 Lab Results Last 24 Hours: Laboratory Results - last 24 hr 07/03/21 07/03/21 07/03/21 Range/Units 22:00 22:07 22:07 WBC 12.15 H (4.0-11.0) K/uL RBC 4.70 (4.50-5.90) M/uL Hgb 13.7 (13.0-17.0) g/dL Hct 37.2 L (38.0-50.0) % MCV 79.1 L (80.0-98.0) fL MCH 29.1 (27.0-32.0) pg MCHC 36.8 (31.0-37.0) g/dL RDW Std Deviation 38.0 (28.0-62.0) fl RDW Coeff of Giuliana 13 (11.0-15.0) % Plt Count 177 (150-400) K/uL MPV 9.90 (7.40-12.00) fL Neut % (Auto) 81.0 H (48.0-80.0) % Lymph % (Auto) 13.3 L (16.0-40.0) % [place] % (Auto) 5.4 (0.0-15.0) % Eos % (Auto) 0.1 (0.0-7.0) % Baso % (Auto) 0.2 (0.0-1.5) % Neut # (Auto) 9.8 H (1.4-5.7) K/uL Lymph # (Auto) 1.6 (0.6-2.4) K/uL [place] # (Auto) 0.7 (0.0-0.8) K/uL Eos # (Auto) 0.0 (0.0-0.7) K/uL Baso # (Auto) 0.0 (0.0-0.1) K/uL Nucleated RBC % 0.0 /100WBC Nucleated RBCs # 0 K/uL INR APTT (18.6-31.3) SEC D-Dimer, Quantitative (0.0-0.50) mg/L FEU ABG pH (7.35-7.45) ABG pCO2 (35-45) mmHG ABG pO2 (80-105) mmHG ABG HCO3 (22-26) mEq/L ABG Total CO2 (23-27) mmol/L ABG Base Excess (-2.0-3.0) Sodium 128 L (136-148) mmol/L Potassium 3.6 (3.5-5.1) mmol/L Chloride 92 L (98-107) mmol/L Carbon Dioxide 24.7 (21.0-32.0) mmol/L BUN 10 (7.0-18.0) mg/dL Creatinine 1.2 (0.8-1.3) mg/dL Est Cr Clr Drug Dosing TNP Estimated GFR (MDRD) > 60.0 ml/min Glucose 106 (74-106) mg/dL Lactic Acid (0.4-2.0) mmol/L Calcium 8.0 L (8.5-10.1) mg/dL Total Bilirubin 1.2 H (0.2-1.0) mg/dL AST 101 H (15-37) IU/L ALT 129 H (14-63) IU/L Alkaline Phosphatase 42 L (46-116) U/L Troponin I < 0.050 (0.000-0.056) ng/mL C-Reactive Protein (0.00-0.90) mg/dL Total Protein 6.5 (6.4-8.2) g/dL Albumin 2.5 L (3.4-5.0) g/dL Globulin 4.0 (2.6-4.0) g/dL Albumin/Globulin Ratio 0.6 L (0.9-1.6) Urine Opiates Screen NEGATIVE (NEGATIVE) Ur Oxycodone Screen NEGATIVE (NEGATIVE) Urine Methadone Screen NEGATIVE (NEGATIVE) Ur Barbiturates Screen NEGATIVE (NEGATIVE) Ur Phencyclidine Scrn NEGATIVE (NEGATIVE) Ur Amphetamine Screen NEGATIVE (NEGATIVE) U Methamphetamines Scrn NEGATIVE (NEGATIVE) U Benzodiazepines Scrn NEGATIVE (NEGATIVE) U Cocaine Metab Screen NEGATIVE (NEGATIVE) U Marijuana (THC) Screen NEGATIVE (NEGATIVE) Ethyl Alcohol < 3.0 mg/dL 07/03/21 07/03/21 07/03/21 Range/Units 22:10 23:54 23:54 WBC (4.0-11.0) K/uL RBC (4.50-5.90) M/uL Hgb (13.0-17.0) g/dL Hct (38.0-50.0) % MCV (80.0-98.0) fL MCH (27.0-32.0) pg MCHC (31.0-37.0) g/dL RDW Std Deviation (28.0-62.0) fl RDW Coeff of [place] (11.0-15.0) % Plt Count (150-400) K/uL MPV (7.40-12.00) fL Neut % (Auto) (48.0-80.0) % Lymph % (Auto) (16.0-40.0) % [place] % (Auto) (0.0-15.0) % Eos % (Auto) (0.0-7.0) % Baso % (Auto) (0.0-1.5) % Neut # (Auto) (1.4-5.7) K/uL Lymph # (Auto) (0.6-2.4) K/uL [place] # (Auto) (0.0-0.8) K/uL Eos # (Auto) (0.0-0.7) K/uL Baso # (Auto) (0.0-0.1) K/uL Nucleated RBC % /100WBC Nucleated RBCs # K/uL INR 1.40 APTT 31.2 (18.6-31.3) SEC D-Dimer, Quantitative > 35.20 H (0.0-0.50) mg/L FEU ABG pH 7.53 H (7.35-7.45) ABG pCO2 28 L (35-45) mmHG ABG pO2 96 (80-105) mmHG ABG HCO3 23 (22-26) mEq/L ABG Total CO2 20.2 L (23-27) mmol/L ABG Base Excess 1.3 (-2.0-3.0) Sodium (136-148) mmol/L Potassium (3.5-5.1) mmol/L Chloride (98-107) mmol/L Carbon Dioxide (21.0-32.0) mmol/L BUN (7.0-18.0) mg/dL Creatinine (0.8-1.3) mg/dL Est Cr Clr Drug Dosing Estimated GFR (MDRD) ml/min Glucose (74-106) mg/dL Lactic Acid (0.4-2.0) mmol/L Calcium (8.5-10.1) mg/dL Total Bilirubin (0.2-1.0) mg/dL AST (15-37) IU/L ALT (14-63) IU/L Alkaline Phosphatase (46-116) U/L Troponin I (0.000-0.056) ng/mL C-Reactive Protein (0.00-0.90) mg/dL Total Protein (6.4-8.2) g/dL Albumin (3.4-5.0) g/dL Globulin (2.6-4.0) g/dL Albumin/Globulin Ratio (0.9-1.6) Urine Opiates Screen (NEGATIVE) Ur Oxycodone Screen (NEGATIVE) Urine Methadone Screen (NEGATIVE) Ur Barbiturates Screen (NEGATIVE) Ur Phencyclidine Scrn (NEGATIVE) Ur Amphetamine Screen (NEGATIVE) U Methamphetamines Scrn (NEGATIVE) U Benzodiazepines Scrn (NEGATIVE) U Cocaine Metab Screen (NEGATIVE) U Marijuana (THC) Screen (NEGATIVE) Ethyl Alcohol mg/dL 07/04/21 07/04/21 07/04/21 Range/Units 05:00 05:00 05:00 WBC 10.81 (4.0-11.0) K/uL RBC 4.64 (4.50-5.90) M/uL Hgb 13.5 (13.0-17.0) g/dL Hct 37.4 L (38.0-50.0) % MCV 80.6 (80.0-98.0) fL MCH 29.1 (27.0-32.0) pg MCHC 36.1 (31.0-37.0) g/dL RDW Std Deviation 39.1 (28.0-62.0) fl RDW Coeff of Giuliana 14 (11.0-15.0) % Plt Count 176 (150-400) K/uL MPV 10.30 (7.40-12.00) fL Neut % (Auto) 86.8 H (48.0-80.0) % Lymph % (Auto) 8.0 L (16.0-40.0) % [place] % (Auto) 4.9 (0.0-15.0) % Eos % (Auto) 0.1 (0.0-7.0) % Baso % (Auto) 0.2 (0.0-1.5) % Neut # (Auto) 9.4 H (1.4-5.7) K/uL Lymph # (Auto) 0.9 (0.6-2.4) K/uL [place] # (Auto) 0.5 (0.0-0.8) K/uL Eos # (Auto) 0.0 (0.0-0.7) K/uL Baso # (Auto) 0.0 (0.0-0.1) K/uL Nucleated RBC % 0.0 /100WBC Nucleated RBCs # 0 K/uL INR APTT (18.6-31.3) SEC D-Dimer, Quantitative (0.0-0.50) mg/L FEU ABG pH (7.35-7.45) ABG pCO2 (35-45) mmHG ABG pO2 (80-105) mmHG ABG HCO3 (22-26) mEq/L ABG Total CO2 (23-27) mmol/L ABG Base Excess (-2.0-3.0) Sodium 129 L (136-148) mmol/L Potassium 4.0 (3.5-5.1) mmol/L Chloride 94 L (98-107) mmol/L Carbon Dioxide 25.3 (21.0-32.0) mmol/L BUN 11 (7.0-18.0) mg/dL Creatinine 1.0 (0.8-1.3) mg/dL Est Cr Clr Drug Dosing 97.26 Estimated GFR (MDRD) > 60.0 ml/min Glucose 120 H (74-106) mg/dL Lactic Acid (0.4-2.0) mmol/L Calcium 7.9 L (8.5-10.1) mg/dL Total Bilirubin 0.8 (0.2-1.0) mg/dL AST 83 H (15-37) IU/L ALT 113 H (14-63) IU/L Alkaline Phosphatase 42 L (46-116) U/L Troponin I (0.000-0.056) ng/mL C-Reactive Protein 24.70 H (0.00-0.90) mg/dL Total Protein 6.5 (6.4-8.2) g/dL Albumin 2.3 L (3.4-5.0) g/dL Globulin 4.2 H (2.6-4.0) g/dL Albumin/Globulin Ratio 0.6 L (0.9-1.6) Urine Opiates Screen (NEGATIVE) Ur Oxycodone Screen (NEGATIVE) Urine Methadone Screen (NEGATIVE) Ur Barbiturates Screen (NEGATIVE) Ur Phencyclidine Scrn (NEGATIVE) Ur Amphetamine Screen (NEGATIVE) U Methamphetamines Scrn (NEGATIVE) U Benzodiazepines Scrn (NEGATIVE) U Cocaine Metab Screen (NEGATIVE) U Marijuana (THC) Screen (NEGATIVE) Ethyl Alcohol mg/dL 07/04/21 Range/Units 06:25 WBC (4.0-11.0) K/uL RBC (4.50-5.90) M/uL Hgb (13.0-17.0) g/dL Hct (38.0-50.0) % MCV (80.0-98.0) fL MCH (27.0-32.0) pg MCHC (31.0-37.0) g/dL RDW Std Deviation (28.0-62.0) fl RDW Coeff of Giuliana (11.0-15.0) % Plt Count (150-400) K/uL MPV (7.40-12.00) fL Neut % (Auto) (48.0-80.0) % Lymph % (Auto) (16.0-40.0) % [place] % (Auto) (0.0-15.0) % Eos % (Auto) (0.0-7.0) % Baso % (Auto) (0.0-1.5) % Neut # (Auto) (1.4-5.7) K/uL Lymph # (Auto) (0.6-2.4) K/uL [place] # (Auto) (0.0-0.8) K/uL Eos # (Auto) (0.0-0.7) K/uL Baso # (Auto) (0.0-0.1) K/uL Nucleated RBC % /100WBC Nucleated RBCs # K/uL INR APTT (18.6-31.3) SEC D-Dimer, Quantitative (0.0-0.50) mg/L FEU ABG pH (7.35-7.45) ABG pCO2 (35-45) mmHG ABG pO2 (80-105) mmHG ABG HCO3 (22-26) mEq/L ABG Total CO2 (23-27) mmol/L ABG Base Excess (-2.0-3.0) Sodium (136-148) mmol/L Potassium (3.5-5.1) mmol/L Chloride (98-107) mmol/L Carbon Dioxide (21.0-32.0) mmol/L BUN (7.0-18.0) mg/dL Creatinine (0.8-1.3) mg/dL Est Cr Clr Drug Dosing Estimated GFR (MDRD) ml/min Glucose (74-106) mg/dL Lactic Acid 1.7 (0.4-2.0) mmol/L Calcium (8.5-10.1) mg/dL Total Bilirubin (0.2-1.0) mg/dL AST (15-37) IU/L ALT (14-63) IU/L Alkaline Phosphatase (46-116) U/L Troponin I (0.000-0.056) ng/mL C-Reactive Protein (0.00-0.90) mg/dL Total Protein (6.4-8.2) g/dL Albumin (3.4-5.0) g/dL Globulin (2.6-4.0) g/dL Albumin/Globulin Ratio (0.9-1.6) Urine Opiates Screen (NEGATIVE) Ur Oxycodone Screen (NEGATIVE) Urine Methadone Screen (NEGATIVE) Ur Barbiturates Screen (NEGATIVE) Ur Phencyclidine Scrn (NEGATIVE) Ur Amphetamine Screen (NEGATIVE) U Methamphetamines Scrn (NEGATIVE) U Benzodiazepines Scrn (NEGATIVE) U Cocaine Metab Screen (NEGATIVE) U Marijuana (THC) Screen (NEGATIVE) Ethyl Alcohol mg/dL Med Orders - Current: Current Medications Albuterol/Ipratropium (Albuterol/Ipratropium 3.0-0.5 Mg/3 Ml Neb Soln) 3 ml NEB Q4HRRT [facility] Last Admin: 07/04/21 09:15 Dose: 3 ml Documented by: Enoxaparin Sodium (Enoxaparin 40 Mg/0.4 Ml Syringe) 40 mg SUBCUT Q12HR [facility] Sodium Chloride (Normal Saline) 250 mls @ 125 mls/hr IV ASDIRECTED [facility] Last Admin: 07/04/21 02:33 Dose: 125 mls/hr Documented by: Ceftriaxone Sodium/Dextrose 1 (gm/ Premix) 50 mls @ 100 mls/hr IV Q24H [facility] Last Admin: 07/04/21 02:29 Dose: 100 mls/hr Documented by: Azithromycin 250 mg/ Sodium (Chloride) 250 mls @ 250 mls/hr IV Q24H [facility] Lorazepam (Lorazepam 2 Mg/Ml Sdv) 2 mg IVPUSH Q4H PRN PRN Reason: Agitation Last Admin: 07/04/21 08:23 Dose: 2 mg Documented by: Methylprednisolone Sodium Succinate (Methylprednisolone Sodium Succinate 40 Mg/1 Ml Sdv) 40 mg IVPUSH Q8H [facility] Last Admin: 07/04/21 06:29 Dose: 40 mg Documented by: Ondansetron HCl (Ondansetron 4 Mg/2 Ml Sdv) 4 mg IVPUSH Q4H PRN PRN Reason: Nausea/Vomiting Discontinued Medications Albuterol/Ipratropium (Albuterol/Ipratropium 3.0-0.5 Mg/3 Ml Neb Soln) 3 ml NEB Q4HRRT PRN PRN Reason: Shortness Of Breath/wheezing Dexamethasone (Dexamethasone 4 Mg/Ml Sdv) 4 mg IVPUSH DAILY [facility] Last Admin: 07/04/21 02:29 Dose: 4 mg Documented by: Enoxaparin Sodium (Enoxaparin 40 Mg/0.4 Ml Syringe) 40 mg SUBCUT BID [facility] Enoxaparin Sodium (Enoxaparin 100 Mg/1 Ml Syringe) 100 mg SUBCUT ONETIME ONE Stop: 07/04/21 02:46 Last Admin: 07/04/21 02:58 Dose: 100 mg Documented by: Enoxaparin Sodium (Enoxaparin 60 Mg/0.6 Ml Syringe) 60 mg SUBCUT ONETIME ONE Stop: 07/04/21 03:01 Last Admin: 07/04/21 02:58 Dose: 60 mg Documented by: Enoxaparin Sodium (Enoxaparin 40 Mg/0.4 Ml Syringe) 40 mg SUBCUT Q12HR [facility] Last Admin: 07/04/21 09:13 Dose: Not Given Documented by: Furosemide (Furosemide 40 Mg/4 Ml Vial) 40 mg IVPUSH NOW ONE Stop: 07/04/21 06:22 Last Admin: 07/04/21 06:29 Dose: 40 mg Documented by: Azithromycin 500 mg/ Sodium (Chloride) 250 mls @ 250 mls/hr IV ONETIME [facility] Last Admin: 07/04/21 02:29 Dose: 250 mls/hr Documented by: Lorazepam (Lorazepam 2 Mg/Ml Sdv) 2 mg IVPUSH ONETIME ONE Stop: 07/04/21 01:32 Last Admin: 07/04/21 01:37 Dose: 2 mg Documented by: Ondansetron HCl (Ondansetron 4 Mg/2 Ml Sdv) 4 mg IVPUSH ONETIME ONE Stop: 07/04/21 01:33 Last Admin: 07/04/21 01:37 Dose: 4 mg Documented by: - Exam Quality Assessment: Supplemental Oxygen Urinary Catheter Total Time: 0Days 1Hours General: Alert, Oriented, Cooperative, Mild Distress Lungs: Decreased Breath Sounds, Crackles, Rales Cardiovascular: Regular Rate, Regular Rhythm GI/Abdominal Exam: Normal Bowel Sounds, Soft, Non-Tender - Patient Data Lab Results Last 24 hrs: Laboratory Results - last 24 hr 07/03/21 07/03/21 07/03/21 Range/Units 22:00 22:07 22:07 WBC 12.15 H (4.0-11.0) K/uL RBC 4.70 (4.50-5.90) M/uL Hgb 13.7 (13.0-17.0) g/dL Hct 37.2 L (38.0-50.0) % MCV 79.1 L (80.0-98.0) fL MCH 29.1 (27.0-32.0) pg MCHC 36.8 (31.0-37.0) g/dL RDW Std Deviation 38.0 (28.0-62.0) fl RDW Coeff of Giuliana 13 (11.0-15.0) % Plt Count 177 (150-400) K/uL MPV 9.90 (7.40-12.00) fL Neut % (Auto) 81.0 H (48.0-80.0) % Lymph % (Auto) 13.3 L (16.0-40.0) % [place] % (Auto) 5.4 (0.0-15.0) % Eos % (Auto) 0.1 (0.0-7.0) % Baso % (Auto) 0.2 (0.0-1.5) % Neut # (Auto) 9.8 H (1.4-5.7) K/uL Lymph # (Auto) 1.6 (0.6-2.4) K/uL [place] # (Auto) 0.7 (0.0-0.8) K/uL Eos # (Auto) 0.0 (0.0-0.7) K/uL Baso # (Auto) 0.0 (0.0-0.1) K/uL Nucleated RBC % 0.0 /100WBC Nucleated RBCs # 0 K/uL INR APTT (18.6-31.3) SEC D-Dimer, Quantitative (0.0-0.50) mg/L FEU ABG pH (7.35-7.45) ABG pCO2 (35-45) mmHG ABG pO2 (80-105) mmHG ABG HCO3 (22-26) mEq/L ABG Total CO2 (23-27) mmol/L ABG Base Excess (-2.0-3.0) Sodium 128 L (136-148) mmol/L Potassium 3.6 (3.5-5.1) mmol/L Chloride 92 L (98-107) mmol/L Carbon Dioxide 24.7 (21.0-32.0) mmol/L BUN 10 (7.0-18.0) mg/dL Creatinine 1.2 (0.8-1.3) mg/dL Est Cr Clr Drug Dosing TNP Estimated GFR (MDRD) > 60.0 ml/min Glucose 106 (74-106) mg/dL Lactic Acid (0.4-2.0) mmol/L Calcium 8.0 L (8.5-10.1) mg/dL Total Bilirubin 1.2 H (0.2-1.0) mg/dL AST 101 H (15-37) IU/L ALT 129 H (14-63) IU/L Alkaline Phosphatase 42 L (46-116) U/L Troponin I < 0.050 (0.000-0.056) ng/mL C-Reactive Protein (0.00-0.90) mg/dL Total Protein 6.5 (6.4-8.2) g/dL Albumin 2.5 L (3.4-5.0) g/dL Globulin 4.0 (2.6-4.0) g/dL Albumin/Globulin Ratio 0.6 L (0.9-1.6) Urine Opiates Screen NEGATIVE (NEGATIVE) Ur Oxycodone Screen NEGATIVE (NEGATIVE) Urine Methadone Screen NEGATIVE (NEGATIVE) Ur Barbiturates Screen NEGATIVE (NEGATIVE) Ur Phencyclidine Scrn NEGATIVE (NEGATIVE) Ur Amphetamine Screen NEGATIVE (NEGATIVE) U Methamphetamines Scrn NEGATIVE (NEGATIVE) U Benzodiazepines Scrn NEGATIVE (NEGATIVE) U Cocaine Metab Screen NEGATIVE (NEGATIVE) U Marijuana (THC) Screen NEGATIVE (NEGATIVE) Ethyl Alcohol < 3.0 mg/dL 07/03/21 07/03/21 07/03/21 Range/Units 22:10 23:54 23:54 WBC (4.0-11.0) K/uL RBC (4.50-5.90) M/uL Hgb (13.0-17.0) g/dL Hct (38.0-50.0) % MCV (80.0-98.0) fL MCH (27.0-32.0) pg MCHC (31.0-37.0) g/dL RDW Std Deviation (28.0-62.0) fl RDW Coeff of Giuliana (11.0-15.0) % Plt Count (150-400) K/uL MPV (7.40-12.00) fL Neut % (Auto) (48.0-80.0) % Lymph % (Auto) (16.0-40.0) % [place] % (Auto) (0.0-15.0) % Eos % (Auto) (0.0-7.0) % Baso % (Auto) (0.0-1.5) % Neut # (Auto) (1.4-5.7) K/uL Lymph # (Auto) (0.6-2.4) K/uL [place] # (Auto) (0.0-0.8) K/uL Eos # (Auto) (0.0-0.7) K/uL Baso # (Auto) (0.0-0.1) K/uL Nucleated RBC % /100WBC Nucleated RBCs # K/uL INR 1.40 APTT 31.2 (18.6-31.3) SEC D-Dimer, Quantitative > 35.20 H (0.0-0.50) mg/L FEU ABG pH 7.53 H (7.35-7.45) ABG pCO2 28 L (35-45) mmHG ABG pO2 96 (80-105) mmHG ABG HCO3 23 (22-26) mEq/L ABG Total CO2 20.2 L (23-27) mmol/L ABG Base Excess 1.3 (-2.0-3.0) Sodium (136-148) mmol/L Potassium (3.5-5.1) mmol/L Chloride (98-107) mmol/L Carbon Dioxide (21.0-32.0) mmol/L BUN (7.0-18.0) mg/dL Creatinine (0.8-1.3) mg/dL Est Cr Clr Drug Dosing Estimated GFR (MDRD) ml/min Glucose (74-106) mg/dL Lactic Acid (0.4-2.0) mmol/L Calcium (8.5-10.1) mg/dL Total Bilirubin (0.2-1.0) mg/dL AST (15-37) IU/L ALT (14-63) IU/L Alkaline Phosphatase (46-116) U/L Troponin I (0.000-0.056) ng/mL C-Reactive Protein (0.00-0.90) mg/dL Total Protein (6.4-8.2) g/dL Albumin (3.4-5.0) g/dL Globulin (2.6-4.0) g/dL Albumin/Globulin Ratio (0.9-1.6) Urine Opiates Screen (NEGATIVE) Ur Oxycodone Screen (NEGATIVE) Urine Methadone Screen (NEGATIVE) Ur Barbiturates Screen (NEGATIVE) Ur Phencyclidine Scrn (NEGATIVE) Ur Amphetamine Screen (NEGATIVE) U Methamphetamines Scrn (NEGATIVE) U Benzodiazepines Scrn (NEGATIVE) U Cocaine Metab Screen (NEGATIVE) U Marijuana (THC) Screen (NEGATIVE) Ethyl Alcohol mg/dL 07/04/21 07/04/21 07/04/21 Range/Units 05:00 05:00 05:00 WBC 10.81 (4.0-11.0) K/uL RBC 4.64 (4.50-5.90) M/uL Hgb 13.5 (13.0-17.0) g/dL Hct 37.4 L (38.0-50.0) % MCV 80.6 (80.0-98.0) fL MCH 29.1 (27.0-32.0) pg MCHC 36.1 (31.0-37.0) g/dL RDW Std Deviation 39.1 (28.0-62.0) fl RDW Coeff of Giuliana 14 (11.0-15.0) % Plt Count 176 (150-400) K/uL MPV 10.30 (7.40-12.00) fL Neut % (Auto) 86.8 H (48.0-80.0) % Lymph % (Auto) 8.0 L (16.0-40.0) % [place] % (Auto) 4.9 (0.0-15.0) % Eos % (Auto) 0.1 (0.0-7.0) % Baso % (Auto) 0.2 (0.0-1.5) % Neut # (Auto) 9.4 H (1.4-5.7) K/uL Lymph # (Auto) 0.9 (0.6-2.4) K/uL [place] # (Auto) 0.5 (0.0-0.8) K/uL Eos # (Auto) 0.0 (0.0-0.7) K/uL Baso # (Auto) 0.0 (0.0-0.1) K/uL Nucleated RBC % 0.0 /100WBC Nucleated RBCs # 0 K/uL INR APTT (18.6-31.3) SEC D-Dimer, Quantitative (0.0-0.50) mg/L FEU ABG pH (7.35-7.45) ABG pCO2 (35-45) mmHG ABG pO2 (80-105) mmHG ABG HCO3 (22-26) mEq/L ABG Total CO2 (23-27) mmol/L ABG Base Excess (-2.0-3.0) Sodium 129 L (136-148) mmol/L Potassium 4.0 (3.5-5.1) mmol/L Chloride 94 L (98-107) mmol/L Carbon Dioxide 25.3 (21.0-32.0) mmol/L BUN 11 (7.0-18.0) mg/dL Creatinine 1.0 (0.8-1.3) mg/dL Est Cr Clr Drug Dosing 97.26 Estimated GFR (MDRD) > 60.0 ml/min Glucose 120 H (74-106) mg/dL Lactic Acid (0.4-2.0) mmol/L Calcium 7.9 L (8.5-10.1) mg/dL Total Bilirubin 0.8 (0.2-1.0) mg/dL AST 83 H (15-37) IU/L ALT 113 H (14-63) IU/L Alkaline Phosphatase 42 L (46-116) U/L Troponin I (0.000-0.056) ng/mL C-Reactive Protein 24.70 H (0.00-0.90) mg/dL Total Protein 6.5 (6.4-8.2) g/dL Albumin 2.3 L (3.4-5.0) g/dL Globulin 4.2 H (2.6-4.0) g/dL Albumin/Globulin Ratio 0.6 L (0.9-1.6) Urine Opiates Screen (NEGATIVE) Ur Oxycodone Screen (NEGATIVE) Urine Methadone Screen (NEGATIVE) Ur Barbiturates Screen (NEGATIVE) Ur Phencyclidine Scrn (NEGATIVE) Ur Amphetamine Screen (NEGATIVE) U Methamphetamines Scrn (NEGATIVE) U Benzodiazepines Scrn (NEGATIVE) U Cocaine Metab Screen (NEGATIVE) U Marijuana (THC) Screen (NEGATIVE) Ethyl Alcohol mg/dL 07/04/21 Range/Units 06:25 WBC (4.0-11.0) K/uL RBC (4.50-5.90) M/uL Hgb (13.0-17.0) g/dL Hct (38.0-50.0) % MCV (80.0-98.0) fL MCH (27.0-32.0) pg MCHC (31.0-37.0) g/dL RDW Std Deviation (28.0-62.0) fl RDW Coeff of Giuliana (11.0-15.0) % Plt Count (150-400) K/uL MPV (7.40-12.00) fL Neut % (Auto) (48.0-80.0) % Lymph % (Auto) (16.0-40.0) % [place] % (Auto) (0.0-15.0) % Eos % (Auto) (0.0-7.0) % Baso % (Auto) (0.0-1.5) % Neut # (Auto) (1.4-5.7) K/uL Lymph # (Auto) (0.6-2.4) K/uL [place] # (Auto) (0.0-0.8) K/uL Eos # (Auto) (0.0-0.7) K/uL Baso # (Auto) (0.0-0.1) K/uL Nucleated RBC % /100WBC Nucleated RBCs # K/uL INR APTT (18.6-31.3) SEC D-Dimer, Quantitative (0.0-0.50) mg/L FEU ABG pH (7.35-7.45) ABG pCO2 (35-45) mmHG ABG pO2 (80-105) mmHG ABG HCO3 (22-26) mEq/L ABG Total CO2 (23-27) mmol/L ABG Base Excess (-2.0-3.0) Sodium (136-148) mmol/L Potassium (3.5-5.1) mmol/L Chloride (98-107) mmol/L Carbon Dioxide (21.0-32.0) mmol/L BUN (7.0-18.0) mg/dL Creatinine (0.8-1.3) mg/dL Est Cr Clr Drug Dosing Estimated GFR (MDRD) ml/min Glucose (74-106) mg/dL Lactic Acid 1.7 (0.4-2.0) mmol/L Calcium (8.5-10.1) mg/dL Total Bilirubin (0.2-1.0) mg/dL AST (15-37) IU/L ALT (14-63) IU/L Alkaline Phosphatase (46-116) U/L Troponin I (0.000-0.056) ng/mL C-Reactive Protein (0.00-0.90) mg/dL Total Protein (6.4-8.2) g/dL Albumin (3.4-5.0) g/dL Globulin (2.6-4.0) g/dL Albumin/Globulin Ratio (0.9-1.6) Urine Opiates Screen (NEGATIVE) Ur Oxycodone Screen (NEGATIVE) Urine Methadone Screen (NEGATIVE) Ur Barbiturates Screen (NEGATIVE) Ur Phencyclidine Scrn (NEGATIVE) Ur Amphetamine Screen (NEGATIVE) U Methamphetamines Scrn (NEGATIVE) U Benzodiazepines Scrn (NEGATIVE) U Cocaine Metab Screen (NEGATIVE) U Marijuana (THC) Screen (NEGATIVE) Ethyl Alcohol mg/dL Result Diagrams: 07/04/21 05:00 07/04/21 05:00 Sepsis Event Note - Focused Exam Vital Signs: Vital Signs Temp Resp BP Pulse Ox 07/04/21 13:00 37.2 C 40 H 128/64 91 L 07/04/21 12:00 37.2 C 25 H 111/74 91 L 07/04/21 11:35 33 H 95 07/04/21 11:00 37.2 C 40 H 117/83 93 L 07/04/21 10:00 37.2 C 35 H 112/79 96 07/04/21 09:00 37.2 C 33 H 115/80 91 L 07/04/21 08:00 37.2 C 27 H 126/77 89 L 07/04/21 07:00 37.2 C 32 H 122/77 97 07/04/21 06:00 30 H 121/76 96 07/04/21 05:00 33 H 124/64 95 07/04/21 04:00 36.4 C 29 H 133/64 98 07/04/21 03:00 35 H 119/72 94 L 07/04/21 02:00 14 134/86 90 L - Problem List & Annotations (1) AMS (altered mental status) SNOMED Code(s): 156669524 Code(s): R41.82 - ALTERED MENTAL STATUS, UNSPECIFIED Status: Acute Current Visit: Yes (2) COVID SNOMED Code(s): 919627959 Code(s): U07.1 - COVID-19 Status: Acute Current Visit: Yes (3) Hypoxia SNOMED Code(s): 613223069 Code(s): R09.02 - HYPOXEMIA Status: Acute Current Visit: Yes (4) Acute respiratory failure with hypoxia SNOMED Code(s): 42349382, 701338826 Code(s): J96.01 - ACUTE RESPIRATORY FAILURE WITH HYPOXIA Status: Acute Current Visit: No (5) Hyponatremia SNOMED Code(s): 84247897 Code(s): E87.1 - HYPO-OSMOLALITY AND HYPONATREMIA Status: Acute Current Visit: No (6) BMI 33.0-33.9,adult SNOMED Code(s): 885717908 Code(s): Z68.33 - BODY MASS INDEX [BMI] 33.0-33.9, ADULT Status: Acute Current Visit: Yes - Problem List Review Problem List Initiated/Reviewed/Updated: Yes - My Orders Last 24 Hours: My Active Orders 07/04/21 01:39 Ambulate [RC] ASDIRECTED Ondansetron [Zofran] 4 mg IVPUSH Q4H PRN 07/04/21 01:40 Oxygen Therapy [RC] PRN VTE/DVT Education [RC] PER UNIT ROUTINE Vital Signs [RC] Q1H Sequential Compression Device [OM.PC] Per Unit Routine 07/04/21 01:45 RT Aerosol Therapy [RC] ASDIRECTED 07/04/21 02:00 Albuterol/Ipratropium [DuoNeb 3.0-0.5 MG/3 ML] 3 ml NEB Q4HRRT Sodium Chloride 0.9% [Normal Saline] 250 ml IV ASDIRECTED cefTRIAXone [Rocephin in Dextrose,Iso-Osm 1 GM/50 ML] 1 gm Premix Bag 1 bag IV Q24H 07/04/21 02:07 IS (RT) [RT Incentive Spirometry] [RC] Q2HWA 07/04/21 05:00 PROCALCITONIN [REF] Routine 07/04/21 Breakfast Clear Liquid Diet [DIET] 07/04/21 08:05 Insert Urinary Catheter [OM.PC] Stat LORazepam [Ativan] 2 mg IVPUSH Q4H PRN 07/04/21 08:06 Urinary Catheter Assessment [RC] ASDIRECTED 07/04/21 13:24 Ang Chest [CT] Routine 07/04/21 21:00 Azithromycin [Zithromax] 250 mg Sodium Chloride 0.9% [Normal Saline] 250 ml IV Q24H - Plan Plan:: 46 y/o M admitted for worsenign covid hypoxic respiratory failure, was discharged home on 3Lts Given h/o non compliance during last visit, patient probably is encephalopathic due to hypoxia CT head noted cont oxygenation via Vapotherm for now Remdesivir course already completed during last visit Patient has been started on Solu-Medrol per eICU recommendations Start IV antibiotics for possible superimposed bacterial PNA, follow-up on procalcitonin if negative will likely start patient on baricitinib or Actemra based on availability Lovenox BID, patient received full dose anticoagulation last night due to high D-dimer, although the D-dimer is likely due to patient's known inflammatory condition, will obtain a CTA to rule out PE Cathie SAMM IS q1h [place]
[2021-07-04] MEDS: Pantoprazole 40 MG in Sodium Chloride 0.9% 10 ML IV SCH (14:23)
--- NOTE | 2021-07-04 16:27 | CT ---
Indication: Hypoxia. Worsening COVID. Technique: Multiple contiguous axial images were obtained from the thoracic inlet through the upper abdomen after the intravenous administration 100 milliliters Isovue 370. Please note that all CT scans at this facility use dose modulation, iterative reconstruction, and/or weight-based dosing when appropriate to reduce radiation dose to as low as reasonably achievable. Comparison: None Findings: Aorta is normal in caliber. There is no evidence of aortic dissection. No pulmonary embolism is identified. The heart is normal in size. No pericardial effusions identified. The visualized portions of the liver, gallbladder, spleen, pancreas, adrenals, and kidneys are normal. No lytic or blastic lesions of the spine are identified. Degenerative changes are seen. Bilateral diffuse patchy opacities are identified within both lungs. This is most consistent with COVID. No pleural effusion or pneumothorax is identified. Impression: No pulmonary embolism. Findings most consistent with COVID. Please note that all CT scans at this facility use dose modulation, iterative reconstruction, and/or weight-based dosing when appropriate to reduce radiation dose to as low as reasonably achievable. Dictated by Neela Durant MD @ 07/04/2021 4:26:39 PM (Electronically Signed)
[2021-07-04] MEDS ORDERED: Iopamidol 755 MG/ML 500 ML Multipack Bottle IVPUSH STA (19:05)
[2021-07-04] MEDS: Azithromycin 250 MG in Sodium Chloride 0.9% 250 ML IV SCH (20:10)
[2021-07-05] MEDS: cefTRIAXone 1 GM in Premix Bag 1 BAG IV SCH (01:27)
[2021-07-05] MEDS: Albuterol/Ipratropium 3.0-0.5 MG/3 ML Neb Soln NEB SCH ×6 (01:27→21:50)
[2021-07-05] MEDS: methylPREDNISolone Sodium Succinate 40 MG/1 ML SDV IVPUSH SCH ×3 (05:15→21:50)
[2021-07-05 07:01] LABS: BLOOD UREA NITROGEN,BUN 20 mg/dL (7.0-18.0); CARBON DIOXIDE,CO2 28.7 mmol/L (21.0-32.0); CHLORIDE,CL 100 mmol/L (98-107); GLUCOSE RANDOM 181 mg/dL (74-106); POTASSIUM,K 3.9 mmol/L (3.5-5.1); SODIUM,NA 136 mmol/L (136-148)
[2021-07-05] MEDS: Enoxaparin 40 MG/0.4 ML Syringe SUBCUT SCH ×2 (08:56→20:15)
[2021-07-05] MEDS: Pantoprazole 40 MG in Sodium Chloride 0.9% 10 ML IV SCH (08:57)
[2021-07-05] MEDS ORDERED: Enoxaparin 60 MG/0.6 ML Syringe SUBCUT SCH (09:00)
[2021-07-05] MEDS ORDERED: Enoxaparin 100 MG/1 ML Syringe SUBCUT SCH (09:00)
--- NOTE | 2021-07-05 14:06 | PCM.PN ---
- General Info Date of Service: 07/05/21 Admission Dx/Problem (Free Text): Admission Diagnosis/Problem Admission Diagnosis/Problem Altered mental status Subjective Update: Patient seen at bedside, no acute distress, off and on some cough, dyspnea on exertion but appears to be comfortable, has not had a bowel movement yet Functional Status: Reports: Tolerating Diet, Ambulating, Urinating - Review of Systems General: Reports: Weakness, Fatigue, Malaise. Denies: Fever, Chills Pulmonary: Reports: Shortness of Breath, Cough, Sputum Cardiovascular: Reports: Dyspnea on Exertion. Denies: Chest Pain, Palpitations, Orthopnea Gastrointestinal: Denies: Abdominal Pain, Constipation, Decreased Appetite Genitourinary: Denies: Dysuria, Frequency, Burning Musculoskeletal: Denies: Neck Pain, Shoulder Pain, Arm Pain Skin: Denies: Cyanosis, Jaundice, Mottled - Patient Data Vitals - Most Recent: Last Vital Signs Temp 36.6 C 07/05/21 13:00 Pulse 104 H 07/03/21 23:55 Resp 18 07/05/21 13:00 BP 120/51 L 07/05/21 13:00 Pulse Ox 91 L 07/05/21 13:00 Weight - Most Recent: 122.47 kg I&O - Last 24 Hours: Intake & Output 07/04/21 07/05/21 07/05/21 22:59 06:59 14:59 Intake Total 3000 500 1200 Output Total 2550 1200 Balance 450 -700 1200 Lab Results Last 24 Hours: Laboratory Results - last 24 hr 07/05/21 07/05/21 Range/Units 05:13 05:13 WBC 13.02 H (4.0-11.0) K/uL RBC 4.99 (4.50-5.90) M/uL Hgb 13.9 (13.0-17.0) g/dL Hct 40.1 (38.0-50.0) % MCV 80.4 (80.0-98.0) fL MCH 27.9 (27.0-32.0) pg MCHC 34.7 (31.0-37.0) g/dL RDW Std Deviation 41.7 (28.0-62.0) fl RDW Coeff of Giuliana 14 (11.0-15.0) % Plt Count 249 (150-400) K/uL MPV 10.30 (7.40-12.00) fL Neut % (Auto) 88.7 H (48.0-80.0) % Lymph % (Auto) 6.2 L (16.0-40.0) % [place] % (Auto) 5.0 (0.0-15.0) % Eos % (Auto) 0.0 (0.0-7.0) % Baso % (Auto) 0.1 (0.0-1.5) % Neut # (Auto) 11.6 H (1.4-5.7) K/uL Lymph # (Auto) 0.8 (0.6-2.4) K/uL [place] # (Auto) 0.7 (0.0-0.8) K/uL Eos # (Auto) 0.0 (0.0-0.7) K/uL Baso # (Auto) 0.0 (0.0-0.1) K/uL Nucleated RBC % 0.0 /100WBC Nucleated RBCs # 0 K/uL Sodium 136 (136-148) mmol/L Potassium 3.9 (3.5-5.1) mmol/L Chloride 100 (98-107) mmol/L Carbon Dioxide 28.7 (21.0-32.0) mmol/L BUN 20 H (7.0-18.0) mg/dL Creatinine 1.2 (0.8-1.3) mg/dL Est Cr Clr Drug Dosing 81.05 mL/min Estimated GFR (MDRD) > 60.0 ml/min Glucose 181 H (74-106) mg/dL Calcium 8.4 L (8.5-10.1) mg/dL Phosphorus 4.2 (2.6-4.7) mg/dL Magnesium 2.8 H (1.8-2.4) mg/dL Med Orders - Current: Current Medications Albuterol/Ipratropium (Albuterol/Ipratropium 3.0-0.5 Mg/3 Ml Neb Soln) 3 ml NEB Q4HRRT COUNT INCLUDES THE [facility] Last Admin: 07/05/21 14:00 Dose: 3 ml Documented by: Enoxaparin Sodium (Enoxaparin 40 Mg/0.4 Ml Syringe) 40 mg SUBCUT Q12HR COUNT INCLUDES THE [facility] Last Admin: 07/05/21 08:56 Dose: 40 mg Documented by: Sodium Chloride (Normal Saline) 250 mls @ 125 mls/hr IV ASDIRECTED COUNT INCLUDES THE [facility] Last Infusion: 07/04/21 19:23 Dose: Infused Documented by: Ceftriaxone Sodium/Dextrose 1 (gm/ Premix) 50 mls @ 100 mls/hr IV Q24H COUNT INCLUDES THE [facility] Last Admin: 07/05/21 01:27 Dose: 100 mls/hr Documented by: Azithromycin 250 mg/ Sodium (Chloride) 250 mls @ 250 mls/hr IV Q24H COUNT INCLUDES THE [facility] Last Admin: 07/04/21 20:10 Dose: 250 mls/hr Documented by: Pantoprazole Sodium 40 mg/ (Sodium Chloride) 10 mls @ 300 mls/hr IV DAILY COUNT INCLUDES THE [facility] Last Admin: 07/05/21 08:57 Dose: 300 mls/hr Documented by: Lorazepam (Lorazepam 2 Mg/Ml Sdv) 2 mg IVPUSH Q4H PRN PRN Reason: Agitation Last Admin: 07/04/21 08:23 Dose: 2 mg Documented by: Methylprednisolone Sodium Succinate (Methylprednisolone Sodium Succinate 40 Mg/1 Ml Sdv) 40 mg IVPUSH Q8H COUNT INCLUDES THE [facility] Last Admin: 07/05/21 14:00 Dose: 40 mg Documented by: Ondansetron HCl (Ondansetron 4 Mg/2 Ml Sdv) 4 mg IVPUSH Q4H PRN PRN Reason: Nausea/Vomiting Discontinued Medications Albuterol/Ipratropium (Albuterol/Ipratropium 3.0-0.5 Mg/3 Ml Neb Soln) 3 ml NEB Q4HRRT PRN PRN Reason: Shortness Of Breath/wheezing Dexamethasone (Dexamethasone 4 Mg/Ml Sdv) 4 mg IVPUSH DAILY COUNT INCLUDES THE [facility] Last Admin: 07/04/21 02:29 Dose: 4 mg Documented by: Enoxaparin Sodium (Enoxaparin 40 Mg/0.4 Ml Syringe) 40 mg SUBCUT BID COUNT INCLUDES THE [facility] Enoxaparin Sodium (Enoxaparin 100 Mg/1 Ml Syringe) 100 mg SUBCUT ONETIME ONE Stop: 07/04/21 02:46 Last Admin: 07/04/21 02:58 Dose: 100 mg Documented by: Enoxaparin Sodium (Enoxaparin 60 Mg/0.6 Ml Syringe) 60 mg SUBCUT ONETIME ONE Stop: 07/04/21 03:01 Last Admin: 07/04/21 02:58 Dose: 60 mg Documented by: Enoxaparin Sodium (Enoxaparin 40 Mg/0.4 Ml Syringe) 40 mg SUBCUT Q12HR COUNT INCLUDES THE [facility] Last Admin: 07/04/21 09:13 Dose: Not Given Documented by: Furosemide (Furosemide 40 Mg/4 Ml Vial) 40 mg IVPUSH NOW ONE Stop: 07/04/21 06:22 Last Admin: 07/04/21 06:29 Dose: 40 mg Documented by: Azithromycin 500 mg/ Sodium (Chloride) 250 mls @ 250 mls/hr IV ONETIME [facility] Last Infusion: 07/04/21 19:07 Dose: Infused Documented by: Iopamidol (Iopamidol 755 Mg/Ml 500 Ml Multipack Bottle) 100 ml IVPUSH ONETIME STA Stop: 07/04/21 19:06 Last Admin: 07/04/21 19:06 Dose: 100 ml Documented by: Lorazepam (Lorazepam 2 Mg/Ml Sdv) 2 mg IVPUSH ONETIME ONE Stop: 07/04/21 01:32 Last Admin: 07/04/21 01:37 Dose: 2 mg Documented by: Ondansetron HCl (Ondansetron 4 Mg/2 Ml Sdv) 4 mg IVPUSH ONETIME ONE Stop: 07/04/21 01:33 Last Admin: 07/04/21 01:37 Dose: 4 mg Documented by: - Exam Quality Assessment: Supplemental Oxygen Urinary Catheter Total Time: 1Days 1Hours General: Alert, Oriented, No Acute Distress Neck: Supple, Trachea Midline Lungs: Decreased Breath Sounds, Crackles, Rales Cardiovascular: Regular Rate, Regular Rhythm GI/Abdominal Exam: Normal Bowel Sounds, Soft, Non-Tender Extremities: Normal Inspection, Normal Range of Motion, No Pedal Edema - Patient Data Lab Results Last 24 hrs: Laboratory Results - last 24 hr 07/05/21 07/05/21 Range/Units 05:13 05:13 WBC 13.02 H (4.0-11.0) K/uL RBC 4.99 (4.50-5.90) M/uL Hgb 13.9 (13.0-17.0) g/dL Hct 40.1 (38.0-50.0) % MCV 80.4 (80.0-98.0) fL MCH 27.9 (27.0-32.0) pg MCHC 34.7 (31.0-37.0) g/dL RDW Std Deviation 41.7 (28.0-62.0) fl RDW Coeff of Giuliana 14 (11.0-15.0) % Plt Count 249 (150-400) K/uL MPV 10.30 (7.40-12.00) fL Neut % (Auto) 88.7 H (48.0-80.0) % Lymph % (Auto) 6.2 L (16.0-40.0) % Nash % (Auto) 5.0 (0.0-15.0) % Eos % (Auto) 0.0 (0.0-7.0) % Baso % (Auto) 0.1 (0.0-1.5) % Neut # (Auto) 11.6 H (1.4-5.7) K/uL Lymph # (Auto) 0.8 (0.6-2.4) K/uL Nash # (Auto) 0.7 (0.0-0.8) K/uL Eos # (Auto) 0.0 (0.0-0.7) K/uL Baso # (Auto) 0.0 (0.0-0.1) K/uL Nucleated RBC % 0.0 /100WBC Nucleated RBCs # 0 K/uL Sodium 136 (136-148) mmol/L Potassium 3.9 (3.5-5.1) mmol/L Chloride 100 (98-107) mmol/L Carbon Dioxide 28.7 (21.0-32.0) mmol/L BUN 20 H (7.0-18.0) mg/dL Creatinine 1.2 (0.8-1.3) mg/dL Est Cr Clr Drug Dosing 81.05 mL/min Estimated GFR (MDRD) > 60.0 ml/min Glucose 181 H (74-106) mg/dL Calcium 8.4 L (8.5-10.1) mg/dL Phosphorus 4.2 (2.6-4.7) mg/dL Magnesium 2.8 H (1.8-2.4) mg/dL Result Diagrams: 07/05/21 05:13 07/05/21 05:13 Sepsis Event Note - Focused Exam Vital Signs: Vital Signs Temp Resp BP Pulse Ox 07/05/21 13:00 36.6 C 18 120/51 L 91 L 07/05/21 12:00 36.6 C 22 H 123/72 89 L 07/05/21 10:59 36.6 C 90 L 07/05/21 10:00 36.6 C 25 H 114/76 91 L 07/05/21 09:00 36.6 C 20 113/74 91 L 07/05/21 08:00 36.7 C 26 H 109/67 94 L 07/05/21 07:00 26 H 109/68 93 L 07/05/21 06:00 22 H 109/68 94 L 07/05/21 05:00 23 H 114/73 93 L 07/05/21 04:00 36.6 C 31 H 114/75 95 07/05/21 03:00 25 H 115/74 93 L - Problem List & Annotations (1) AMS (altered mental status) SNOMED Code(s): 123280245 Code(s): R41.82 - ALTERED MENTAL STATUS, UNSPECIFIED Status: Acute Current Visit: Yes (2) COVID SNOMED Code(s): 755624101 Code(s): U07.1 - COVID-19 Status: Acute Current Visit: Yes (3) Hypoxia SNOMED Code(s): 117611494 Code(s): R09.02 - HYPOXEMIA Status: Acute Current Visit: Yes (4) Acute respiratory failure with hypoxia SNOMED Code(s): 70850186, 072382787 Code(s): J96.01 - ACUTE RESPIRATORY FAILURE WITH HYPOXIA Status: Acute Current Visit: No (5) Hyponatremia SNOMED Code(s): 99557621 Code(s): E87.1 - HYPO-OSMOLALITY AND HYPONATREMIA Status: Acute Current Visit: No (6) BMI 33.0-33.9,adult SNOMED Code(s): 933445582 Code(s): Z68.33 - BODY MASS INDEX [BMI] 33.0-33.9, ADULT Status: Acute Current Visit: Yes - Problem List Review Problem List Initiated/Reviewed/Updated: Yes - My Orders Last 24 Hours: My Active Orders 07/04/21 14:15 Pantoprazole [ProTONIX IV] 40 mg Sodium Chloride 0.9% [Normal Saline] 10 ml IV DAILY 07/04/21 15:24 Resuscitation Status Routine 07/04/21 21:00 Azithromycin [Zithromax] 250 mg Sodium Chloride 0.9% [Normal Saline] 250 ml IV Q24H - Plan Plan:: 46 y/o M admitted for worsenign covid hypoxic respiratory failure, was discharghed home on 3Lts CTA noted, no PE Currently has been weaned off CPAP tolerating high flow well Remdesivir course already completed during last visit Patient currently on Solu-Medrol Start IV antibiotics for possible superimposed bacterial PNA Procalcitoninsent out, still pending Lovenox BID Cathie [facility] IS q1h [place]
[2021-07-05] MEDS: Benzonatate 100 MG Cap PO PRN (17:36)
[2021-07-05] MEDS: guaiFENesin/Dextromethorphan 100-10 MG/5 ML Soln 10 ML Cup PO PRN ×2 (17:36→21:50)
[2021-07-05] MEDS: Azithromycin 250 MG in Sodium Chloride 0.9% 250 ML IV SCH (20:16)
[2021-07-06] MEDS: Albuterol/Ipratropium 3.0-0.5 MG/3 ML Neb Soln NEB SCH ×4 (01:49→14:09)
[2021-07-06] MEDS: Benzonatate 100 MG Cap PO PRN ×2 (01:49→09:11)
[2021-07-06] MEDS: guaiFENesin/Dextromethorphan 100-10 MG/5 ML Soln 10 ML Cup PO PRN ×4 (01:50→22:49)
[2021-07-06] MEDS: cefTRIAXone 1 GM in Premix Bag 1 BAG IV SCH (01:50)
[2021-07-06] MEDS: methylPREDNISolone Sodium Succinate 40 MG/1 ML SDV IVPUSH SCH ×3 (05:29→21:28)
[2021-07-06 07:00] LABS: CARBON DIOXIDE,CO2 30.3 mmol/L (21.0-32.0); POTASSIUM,K 4.2 mmol/L (3.5-5.1)
[2021-07-06] MEDS: Enoxaparin 40 MG/0.4 ML Syringe SUBCUT SCH ×2 (09:09→21:27)
[2021-07-06] MEDS: Pantoprazole 40 MG in Sodium Chloride 0.9% 10 ML IV SCH (09:10)
[2021-07-06] MEDS ORDERED: Azithromycin 500 MG in Sodium Chloride 0.9% 250 ML IV SCH ×2 (10:24→21:00)
--- NOTE | 2021-07-06 15:04 | PCM.PN ---
- General Info Date of Service: 07/06/21 Admission Dx/Problem (Free Text): Admission Diagnosis/Problem Admission Diagnosis/Problem Altered mental status Subjective Update: Patient seen at bedside, no acute distress, patient got very upset and agitated when I asked him about his oxygen compliance back when he was discharged home. He stated that I was being very "condescending" to him by implying that he did not use his oxygen at home. Patient states that" he is not stupid". I explained to patient that I was trying to get more history and information from him to get a clear picture about series of events that led to his worsening respiratory status. Patient got very defensive and stated that he has never been reluctant about using oxygen and is not sure why I am implying the same. I did explain to patient that the notes from the last discharge summary did imply that he was reluctant in wanting to use the oxygen but eventually did agree also patient wanted to leave little prematurely and was advised to stay 1 more day per last discharge summary and was sent home on 3 L of oxygen eventually. Patient stated that he does not want" negative energy" around him. Eventually after thorough conversation I was able to explain to him why I was asking about oxygen compliance and he expressed understanding. - Patient Data Vitals - Most Recent: Last Vital Signs Temp 36.6 C 07/06/21 14:00 Pulse 104 H 07/03/21 23:55 Resp 19 07/06/21 14:00 BP 115/78 07/06/21 14:00 Pulse Ox 94 L 07/06/21 14:00 Weight - Most Recent: 93.8 kg I&O - Last 24 Hours: Intake & Output 07/05/21 07/06/21 07/06/21 22:59 06:59 14:59 Intake Total 2000 1000 Output Total 950 Balance 1050 1000 Lab Results Last 24 Hours: Laboratory Results - last 24 hr 07/04/21 07/06/21 07/06/21 Range/Units 05:00 05:58 05:58 WBC 13.94 H (4.0-11.0) K/uL RBC 4.90 (4.50-5.90) M/uL Hgb 13.6 (13.0-17.0) g/dL Hct 40.1 (38.0-50.0) % MCV 81.8 (80.0-98.0) fL MCH 27.8 (27.0-32.0) pg MCHC 33.9 (31.0-37.0) g/dL RDW Std Deviation 43.1 (28.0-62.0) fl RDW Coeff of Giuliana 14 (11.0-15.0) % Plt Count 288 (150-400) K/uL MPV 9.60 (7.40-12.00) fL Neut % (Auto) 88.5 H (48.0-80.0) % Lymph % (Auto) 6.0 L (16.0-40.0) % [place] % (Auto) 5.4 (0.0-15.0) % Eos % (Auto) 0.0 (0.0-7.0) % Baso % (Auto) 0.1 (0.0-1.5) % Neut # (Auto) 12.3 H (1.4-5.7) K/uL Lymph # (Auto) 0.8 (0.6-2.4) K/uL [place] # (Auto) 0.8 (0.0-0.8) K/uL Eos # (Auto) 0.0 (0.0-0.7) K/uL Baso # (Auto) 0.0 (0.0-0.1) K/uL Nucleated RBC % 0.0 /100WBC Nucleated RBCs # 0 K/uL Sodium 137 (136-148) mmol/L Potassium 4.2 (3.5-5.1) mmol/L Chloride 102 (98-107) mmol/L Carbon Dioxide 30.3 (21.0-32.0) mmol/L BUN 24 H (7.0-18.0) mg/dL Creatinine 1.3 (0.8-1.3) mg/dL Est Cr Clr Drug Dosing 74.82 mL/min Estimated GFR (MDRD) 59.2 ml/min Glucose 185 H (74-106) mg/dL Calcium 9.1 (8.5-10.1) mg/dL Phosphorus 4.8 H (2.6-4.7) mg/dL Magnesium 2.4 (1.8-2.4) mg/dL Procalcitonin 1.28 H ng/mL Med Orders - Current: Current Medications Albuterol/Ipratropium (Albuterol/Ipratropium 3.0-0.5 Mg/3 Ml Neb Soln) 3 ml NEB Q4HRRT [facility] Last Admin: 07/06/21 14:09 Dose: 3 ml Documented by: Benzonatate (Benzonatate 100 Mg Cap) 100 mg PO Q6H PRN PRN Reason: Cough Last Admin: 07/06/21 09:11 Dose: 100 mg Documented by: Enoxaparin Sodium (Enoxaparin 40 Mg/0.4 Ml Syringe) 40 mg SUBCUT Q12HR [facility] Last Admin: 07/06/21 09:09 Dose: 40 mg Documented by: Guaifenesin/Dextromethorphan (Guaifenesin/Dextromethorphan 100-10 Mg/5 Ml Soln 10 Ml Cup) 10 ml PO Q4H PRN PRN Reason: Cough Last Admin: 07/06/21 09:11 Dose: 10 ml Documented by: Sodium Chloride (Normal Saline) 250 mls @ 125 mls/hr IV ASDIRECTED [facility] Last Infusion: 07/04/21 19:23 Dose: Infused Documented by: Ceftriaxone Sodium/Dextrose 1 (gm/ Premix) 50 mls @ 100 mls/hr IV Q24H [facility] Last Admin: 07/06/21 01:50 Dose: 100 mls/hr Documented by: Pantoprazole Sodium 40 mg/ (Sodium Chloride) 10 mls @ 300 mls/hr IV DAILY [facility] Last Admin: 07/06/21 09:10 Dose: 300 mls/hr Documented by: Azithromycin 500 mg/ Sodium (Chloride) 250 mls @ 250 mls/hr IV Q24H [facility] Lorazepam (Lorazepam 2 Mg/Ml Sdv) 2 mg IVPUSH Q4H PRN PRN Reason: Agitation Last Admin: 07/04/21 08:23 Dose: 2 mg Documented by: Methylprednisolone Sodium Succinate (Methylprednisolone Sodium Succinate 40 Mg/1 Ml Sdv) 40 mg IVPUSH Q8H [facility] Last Admin: 07/06/21 14:09 Dose: 40 mg Documented by: Ondansetron HCl (Ondansetron 4 Mg/2 Ml Sdv) 4 mg IVPUSH Q4H PRN PRN Reason: Nausea/Vomiting Discontinued Medications Albuterol/Ipratropium (Albuterol/Ipratropium 3.0-0.5 Mg/3 Ml Neb Soln) 3 ml NEB Q4HRRT PRN PRN Reason: Shortness Of Breath/wheezing Dexamethasone (Dexamethasone 4 Mg/Ml Sdv) 4 mg IVPUSH DAILY [facility] Last Admin: 07/04/21 02:29 Dose: 4 mg Documented by: Enoxaparin Sodium (Enoxaparin 40 Mg/0.4 Ml Syringe) 40 mg SUBCUT BID [facility] Enoxaparin Sodium (Enoxaparin 100 Mg/1 Ml Syringe) 100 mg SUBCUT ONETIME ONE Stop: 07/04/21 02:46 Last Admin: 07/04/21 02:58 Dose: 100 mg Documented by: Enoxaparin Sodium (Enoxaparin 60 Mg/0.6 Ml Syringe) 60 mg SUBCUT ONETIME ONE Stop: 07/04/21 03:01 Last Admin: 07/04/21 02:58 Dose: 60 mg Documented by: Enoxaparin Sodium (Enoxaparin 40 Mg/0.4 Ml Syringe) 40 mg SUBCUT Q12HR [facility] Last Admin: 07/04/21 09:13 Dose: Not Given Documented by: Furosemide (Furosemide 40 Mg/4 Ml Vial) 40 mg IVPUSH NOW ONE Stop: 07/04/21 06:22 Last Admin: 07/04/21 06:29 Dose: 40 mg Documented by: Azithromycin 500 mg/ Sodium (Chloride) 250 mls @ 250 mls/hr IV ONETIME [facility] Last Infusion: 07/04/21 19:07 Dose: Infused Documented by: Azithromycin 250 mg/ Sodium (Chloride) 250 mls @ 250 mls/hr IV Q24H [facility] Last Admin: 07/05/21 20:16 Dose: 250 mls/hr Documented by: Azithromycin 500 mg/ Sodium (Chloride) 250 mls @ 250 mls/hr IV Q24H [facility] Iopamidol (Iopamidol 755 Mg/Ml 500 Ml Multipack Bottle) 100 ml IVPUSH ONETIME STA Stop: 07/04/21 19:06 Last Admin: 07/04/21 19:06 Dose: 100 ml Documented by: Lorazepam (Lorazepam 2 Mg/Ml Sdv) 2 mg IVPUSH ONETIME ONE Stop: 07/04/21 01:32 Last Admin: 07/04/21 01:37 Dose: 2 mg Documented by: Ondansetron HCl (Ondansetron 4 Mg/2 Ml Sdv) 4 mg IVPUSH ONETIME ONE Stop: 07/04/21 01:33 Last Admin: 07/04/21 01:37 Dose: 4 mg Documented by: - Exam Quality Assessment: Supplemental Oxygen Urinary Catheter Total Time: 1Days 1Hours General: Alert, Oriented, Mild Distress Neck: Supple, Trachea Midline Lungs: Normal Respiratory Effort, Decreased Breath Sounds, Crackles Cardiovascular: Regular Rate, Regular Rhythm GI/Abdominal Exam: Normal Bowel Sounds, Soft, Non-Tender Extremities: Normal Inspection, Normal Range of Motion Skin: Warm, Dry, Intact Psy/Mental Status: Alert, Anxious. No: Suicidal Ideation, Homicidal Ideation, H allucinations, Withdrawal Symptoms - Patient Data Lab Results Last 24 hrs: Laboratory Results - last 24 hr 07/04/21 07/06/21 07/06/21 Range/Units 05:00 05:58 05:58 WBC 13.94 H (4.0-11.0) K/uL RBC 4.90 (4.50-5.90) M/uL Hgb 13.6 (13.0-17.0) g/dL Hct 40.1 (38.0-50.0) % MCV 81.8 (80.0-98.0) fL MCH 27.8 (27.0-32.0) pg MCHC 33.9 (31.0-37.0) g/dL RDW Std Deviation 43.1 (28.0-62.0) fl RDW Coeff of Giuliana 14 (11.0-15.0) % Plt Count 288 (150-400) K/uL MPV 9.60 (7.40-12.00) fL Neut % (Auto) 88.5 H (48.0-80.0) % Lymph % (Auto) 6.0 L (16.0-40.0) % [place] % (Auto) 5.4 (0.0-15.0) % Eos % (Auto) 0.0 (0.0-7.0) % Baso % (Auto) 0.1 (0.0-1.5) % Neut # (Auto) 12.3 H (1.4-5.7) K/uL Lymph # (Auto) 0.8 (0.6-2.4) K/uL [place] # (Auto) 0.8 (0.0-0.8) K/uL Eos # (Auto) 0.0 (0.0-0.7) K/uL Baso # (Auto) 0.0 (0.0-0.1) K/uL Nucleated RBC % 0.0 /100WBC Nucleated RBCs # 0 K/uL Sodium 137 (136-148) mmol/L Potassium 4.2 (3.5-5.1) mmol/L Chloride 102 (98-107) mmol/L Carbon Dioxide 30.3 (21.0-32.0) mmol/L BUN 24 H (7.0-18.0) mg/dL Creatinine 1.3 (0.8-1.3) mg/dL Est Cr Clr Drug Dosing 74.82 mL/min Estimated GFR (MDRD) 59.2 ml/min Glucose 185 H (74-106) mg/dL Calcium 9.1 (8.5-10.1) mg/dL Phosphorus 4.8 H (2.6-4.7) mg/dL Magnesium 2.4 (1.8-2.4) mg/dL Procalcitonin 1.28 H ng/mL Result Diagrams: 07/06/21 05:58 07/06/21 05:58 Sepsis Event Note - Evaluation Sepsis Screening Result: Possible Sepsis Risk - Focused Exam Vital Signs: Vital Signs Temp Resp BP Pulse Ox 07/06/21 14:00 36.6 C 19 115/78 94 L 07/06/21 13:00 18 90 L 07/06/21 12:00 22 H 113/75 92 L 07/06/21 11:30 19 93 L 07/06/21 11:00 36.7 C 20 110/51 L 86 L 07/06/21 10:00 36.7 C 18 109/82 90 L 07/06/21 09:00 36.7 C 21 H 113/71 92 L 07/06/21 08:00 36.7 C 22 H 116/74 89 L 07/06/21 07:00 20 114/66 93 L 07/06/21 06:00 18 104/60 90 L 07/06/21 05:00 36.4 C 20 104/71 93 L 07/06/21 04:00 20 112/71 95 07/06/21 03:00 20 113/72 90 L - Problem List & Annotations (1) AMS (altered mental status) SNOMED Code(s): 378155300 Code(s): R41.82 - ALTERED MENTAL STATUS, UNSPECIFIED Status: Acute Current Visit: Yes (2) COVID SNOMED Code(s): 669561978 Code(s): U07.1 - COVID-19 Status: Acute Current Visit: Yes (3) Hypoxia SNOMED Code(s): 430093304 Code(s): R09.02 - HYPOXEMIA Status: Acute Current Visit: Yes (4) Acute respiratory failure with hypoxia SNOMED Code(s): 97221892, 578361185 Code(s): J96.01 - ACUTE RESPIRATORY FAILURE WITH HYPOXIA Status: Acute Current Visit: No (5) Hyponatremia SNOMED Code(s): 73836461 Code(s): E87.1 - HYPO-OSMOLALITY AND HYPONATREMIA Status: Acute Current Visit: No (6) BMI 33.0-33.9,adult SNOMED Code(s): 466888526 Code(s): Z68.33 - BODY MASS INDEX [BMI] 33.0-33.9, ADULT Status: Acute Current Visit: Yes - Problem List Review Problem List Initiated/Reviewed/Updated: Yes - My Orders Last 24 Hours: My Active Orders 07/06/21 21:00 Azithromycin [Zithromax] 500 mg Sodium Chloride 0.9% [Normal Saline] 250 ml IV Q24H - Plan Plan:: 46 y/o M admitted for worsening covid hypoxic respiratory failure, was discharged home on 3Lts CTA noted, no PE Currently has been weaned off CPAP tolerating high flow well Remdesivir course already completed during last visit Patient currently on Solu-Medrol Start IV antibiotics for possible superimposed bacterial PNA Procalciton high, continue antibiotics for now Lovenox BID [facility] IS q1h [place]
[2021-07-06] MEDS ORDERED: Furosemide 20 MG/2 ML VIAL IVPUSH ONE (15:15)
[2021-07-06] MEDS: Albuterol/Ipratropium 4 GM Inhalation Spray INH SCH ×2 (17:17→21:28)
[2021-07-06] MEDS ORDERED: Albuterol/Ipratropium 3.0-0.5 MG/3 ML Neb Soln NEB PRN (18:00)
[2021-07-06] MEDS: Azithromycin 500 MG in Sodium Chloride 0.9% 250 ML IV SCH (21:27)
[2021-07-07] MEDS: cefTRIAXone 1 GM in Premix Bag 1 BAG IV SCH (01:31)
[2021-07-07] MEDS: Albuterol/Ipratropium 4 GM Inhalation Spray INH SCH ×6 (01:31→21:42)
[2021-07-07] MEDS: methylPREDNISolone Sodium Succinate 40 MG/1 ML SDV IVPUSH SCH ×3 (06:06→21:42)
[2021-07-07 07:41] LABS: BLOOD UREA NITROGEN,BUN 20 mg/dL (7.0-18.0); CARBON DIOXIDE,CO2 30.5 mmol/L (21.0-32.0); CHLORIDE,CL 103 mmol/L (98-107); GLUCOSE RANDOM 155 mg/dL (74-106); POTASSIUM,K 4.7 mmol/L (3.5-5.1); SODIUM,NA 137 mmol/L (136-148)
[2021-07-07] MEDS: Pantoprazole 40 MG in Sodium Chloride 0.9% 10 ML IV SCH (09:06)
[2021-07-07] MEDS: Enoxaparin 40 MG/0.4 ML Syringe SUBCUT SCH ×2 (09:06→21:41)
[2021-07-07] MEDS: guaiFENesin/Dextromethorphan 100-10 MG/5 ML Soln 10 ML Cup PO PRN ×2 (09:07→16:29)
[2021-07-07] MEDS: Benzonatate 100 MG Cap PO PRN ×2 (09:07→16:29)
[2021-07-07] MEDS ORDERED: Furosemide 20 MG/2 ML VIAL IVPUSH ONE (15:17)
--- NOTE | 2021-07-07 15:19 | PCM.PN ---
- General Info Date of Service: 07/07/21 Admission Dx/Problem (Free Text): Admission Diagnosis/Problem Admission Diagnosis/Problem Altered mental status Subjective Update: Seen at bedside no acute distress, feels much better today states he is able to take deeper breaths. Functional Status: Reports: Tolerating Diet, Ambulating, Urinating - Review of Systems General: Denies: Fever, Weakness, Fatigue Pulmonary: Reports: Shortness of Breath. Denies: Pleuritic Chest Pain, Cough Cardiovascular: Reports: Dyspnea on Exertion. Denies: Chest Pain, Palpitations, Orthopnea Gastrointestinal: Denies: Abdominal Pain, Constipation, Decreased Appetite Genitourinary: Denies: Dysuria, Frequency, Burning Musculoskeletal: Denies: Neck Pain, Shoulder Pain, Arm Pain, Hand Pain Skin: Denies: Cyanosis, Jaundice, Mottled, Pallor - Patient Data Vitals - Most Recent: Last Vital Signs Temp 36.6 C 07/07/21 14:00 Pulse 104 H 07/03/21 23:55 Resp 18 07/07/21 14:00 BP 113/64 07/07/21 14:00 Pulse Ox 90 L 07/07/21 14:00 Weight - Most Recent: 97.1 kg I&O - Last 24 Hours: Intake & Output 07/07/21 07/07/21 07/07/21 06:59 14:59 22:59 Intake Total 1100 Output Total 1150 Balance -50 Lab Results Last 24 Hours: Laboratory Results - last 24 hr 07/07/21 07/07/21 Range/Units 05:39 05:39 WBC 12.45 H (4.0-11.0) K/uL RBC 4.81 (4.50-5.90) M/uL Hgb 13.2 (13.0-17.0) g/dL Hct 39.6 (38.0-50.0) % MCV 82.3 (80.0-98.0) fL MCH 27.4 (27.0-32.0) pg MCHC 33.3 (31.0-37.0) g/dL RDW Std Deviation 42.6 (28.0-62.0) fl RDW Coeff of Giuliana 14 (11.0-15.0) % Plt Count 283 (150-400) K/uL MPV 9.60 (7.40-12.00) fL Neut % (Auto) 83.8 H (48.0-80.0) % Lymph % (Auto) 8.0 L (16.0-40.0) % [place] % (Auto) 8.0 (0.0-15.0) % Eos % (Auto) 0.0 (0.0-7.0) % Baso % (Auto) 0.2 (0.0-1.5) % Neut # (Auto) 10.4 H (1.4-5.7) K/uL Lymph # (Auto) 1.0 (0.6-2.4) K/uL [place] # (Auto) 1.0 H (0.0-0.8) K/uL Eos # (Auto) 0.0 (0.0-0.7) K/uL Baso # (Auto) 0.0 (0.0-0.1) K/uL Nucleated RBC % 0.0 /100WBC Nucleated RBCs # 0 K/uL Sodium 137 (136-148) mmol/L Potassium 4.7 (3.5-5.1) mmol/L Chloride 103 (98-107) mmol/L Carbon Dioxide 30.5 (21.0-32.0) mmol/L BUN 20 H (7.0-18.0) mg/dL Creatinine 1.1 (0.8-1.3) mg/dL Est Cr Clr Drug Dosing 88.42 mL/min Estimated GFR (MDRD) > 60.0 ml/min Glucose 155 H (74-106) mg/dL Calcium 8.8 (8.5-10.1) mg/dL Phosphorus 4.4 (2.6-4.7) mg/dL Magnesium 2.4 (1.8-2.4) mg/dL Total Bilirubin 0.4 (0.2-1.0) mg/dL AST 50 H (15-37) IU/L ALT 136 H (14-63) IU/L Alkaline Phosphatase 41 L (46-116) U/L Total Protein 6.4 (6.4-8.2) g/dL Albumin 2.2 L (3.4-5.0) g/dL Globulin 4.2 H (2.6-4.0) g/dL Albumin/Globulin Ratio 0.5 L (0.9-1.6) Med Orders - Current: Current Medications Albuterol/Ipratropium (Albuterol/Ipratropium 4 Gm Inhalation [place]) 0 gm INH Q4HRRT [facility] Last Admin: 07/07/21 13:44 Dose: 1 puff Documented by: Albuterol/Ipratropium (Albuterol/Ipratropium 3.0-0.5 Mg/3 Ml Neb Soln) 3 ml NEB Q4HRRT PRN PRN Reason: sob, wheezing Benzonatate (Benzonatate 100 Mg Cap) 100 mg PO Q6H PRN PRN Reason: Cough Last Admin: 07/07/21 09:07 Dose: 100 mg Documented by: Enoxaparin Sodium (Enoxaparin 40 Mg/0.4 Ml Syringe) 40 mg SUBCUT Q12HR [facility] Last Admin: 07/07/21 09:06 Dose: 40 mg Documented by: Guaifenesin/Dextromethorphan (Guaifenesin/Dextromethorphan 100-10 Mg/5 Ml Soln 10 Ml Cup) 10 ml PO Q4H PRN PRN Reason: Cough Last Admin: 07/07/21 09:07 Dose: 10 ml Documented by: Sodium Chloride (Normal Saline) 250 mls @ 125 mls/hr IV ASDIRECTED [facility] Last Infusion: 07/04/21 19:23 Dose: Infused Documented by: Ceftriaxone Sodium/Dextrose 1 (gm/ Premix) 50 mls @ 100 mls/hr IV Q24H [facility] Last Admin: 07/07/21 01:31 Dose: 100 mls/hr Documented by: Pantoprazole Sodium 40 mg/ (Sodium Chloride) 10 mls @ 300 mls/hr IV DAILY [facility] Last Admin: 07/07/21 09:06 Dose: 300 mls/hr Documented by: Azithromycin 500 mg/ Sodium (Chloride) 250 mls @ 250 mls/hr IV Q24H [facility] Last Admin: 07/06/21 21:27 Dose: 250 mls/hr Documented by: Lorazepam (Lorazepam 2 Mg/Ml Sdv) 2 mg IVPUSH Q4H PRN PRN Reason: Agitation Last Admin: 07/04/21 08:23 Dose: 2 mg Documented by: Methylprednisolone Sodium Succinate (Methylprednisolone Sodium Succinate 40 Mg/1 Ml Sdv) 40 mg IVPUSH Q8H [facility] Last Admin: 07/07/21 13:57 Dose: 40 mg Documented by: Ondansetron HCl (Ondansetron 4 Mg/2 Ml Sdv) 4 mg IVPUSH Q4H PRN PRN Reason: Nausea/Vomiting Discontinued Medications Albuterol/Ipratropium (Albuterol/Ipratropium 3.0-0.5 Mg/3 Ml Neb Soln) 3 ml NEB Q4HRRT PRN PRN Reason: Shortness Of Breath/wheezing Albuterol/Ipratropium (Albuterol/Ipratropium 3.0-0.5 Mg/3 Ml Neb Soln) 3 ml NEB Q4HRRT [facility] Last Admin: 07/06/21 14:09 Dose: 3 ml Documented by: Dexamethasone (Dexamethasone 4 Mg/Ml Sdv) 4 mg IVPUSH DAILY [facility] Last Admin: 07/04/21 02:29 Dose: 4 mg Documented by: Enoxaparin Sodium (Enoxaparin 40 Mg/0.4 Ml Syringe) 40 mg SUBCUT BID [facility] Enoxaparin Sodium (Enoxaparin 100 Mg/1 Ml Syringe) 100 mg SUBCUT ONETIME ONE Stop: 07/04/21 02:46 Last Admin: 07/04/21 02:58 Dose: 100 mg Documented by: Enoxaparin Sodium (Enoxaparin 60 Mg/0.6 Ml Syringe) 60 mg SUBCUT ONETIME ONE Stop: 07/04/21 03:01 Last Admin: 07/04/21 02:58 Dose: 60 mg Documented by: Enoxaparin Sodium (Enoxaparin 40 Mg/0.4 Ml Syringe) 40 mg SUBCUT Q12HR [facility] Last Admin: 07/04/21 09:13 Dose: Not Given Documented by: Furosemide (Furosemide 40 Mg/4 Ml Vial) 40 mg IVPUSH NOW ONE Stop: 07/04/21 06:22 Last Admin: 07/04/21 06:29 Dose: 40 mg Documented by: Furosemide (Furosemide 20 Mg/2 Ml Vial) 20 mg IVPUSH NOW ONE Stop: 07/06/21 15:16 Last Admin: 07/06/21 16:48 Dose: 20 mg Documented by: Azithromycin 500 mg/ Sodium (Chloride) 250 mls @ 250 mls/hr IV ONETIME [facility] Last Infusion: 07/04/21 19:07 Dose: Infused Documented by: Azithromycin 250 mg/ Sodium (Chloride) 250 mls @ 250 mls/hr IV Q24H [facility] Last Admin: 07/05/21 20:16 Dose: 250 mls/hr Documented by: Azithromycin 500 mg/ Sodium (Chloride) 250 mls @ 250 mls/hr IV Q24H [facility] Azithromycin 500 mg/ Sodium (Chloride) 250 mls @ 250 mls/hr IV Q24H [facility] Last Admin: 07/06/21 21:22 Dose: Not Given Documented by: Iopamidol (Iopamidol 755 Mg/Ml 500 Ml Multipack Bottle) 100 ml IVPUSH ONETIME STA Stop: 07/04/21 19:06 Last Admin: 07/04/21 19:06 Dose: 100 ml Documented by: Lorazepam (Lorazepam 2 Mg/Ml Sdv) 2 mg IVPUSH ONETIME ONE Stop: 07/04/21 01:32 Last Admin: 07/04/21 01:37 Dose: 2 mg Documented by: Ondansetron HCl (Ondansetron 4 Mg/2 Ml Sdv) 4 mg IVPUSH ONETIME ONE Stop: 07/04/21 01:33 Last Admin: 07/04/21 01:37 Dose: 4 mg Documented by: - Exam Quality Assessment: Supplemental Oxygen Urinary Catheter Total Time: 1Days 1Hours General: Alert, Oriented Neck: Supple, Trachea Midline Lungs: Normal Respiratory Effort, Decreased Breath Sounds, Crackles, Rales Cardiovascular: Regular Rate GI/Abdominal Exam: Normal Bowel Sounds, Soft Back Exam: Normal Inspection, Full Range of Motion Extremities: Normal Inspection, Normal Range of Motion, Non-Tender - Patient Data Lab Results Last 24 hrs: Laboratory Results - last 24 hr 07/07/21 07/07/21 Range/Units 05:39 05:39 WBC 12.45 H (4.0-11.0) K/uL RBC 4.81 (4.50-5.90) M/uL Hgb 13.2 (13.0-17.0) g/dL Hct 39.6 (38.0-50.0) % MCV 82.3 (80.0-98.0) fL MCH 27.4 (27.0-32.0) pg MCHC 33.3 (31.0-37.0) g/dL RDW Std Deviation 42.6 (28.0-62.0) fl RDW Coeff of Giuliana 14 (11.0-15.0) % Plt Count 283 (150-400) K/uL MPV 9.60 (7.40-12.00) fL Neut % (Auto) 83.8 H (48.0-80.0) % Lymph % (Auto) 8.0 L (16.0-40.0) % [place] % (Auto) 8.0 (0.0-15.0) % Eos % (Auto) 0.0 (0.0-7.0) % Baso % (Auto) 0.2 (0.0-1.5) % Neut # (Auto) 10.4 H (1.4-5.7) K/uL Lymph # (Auto) 1.0 (0.6-2.4) K/uL [place] # (Auto) 1.0 H (0.0-0.8) K/uL Eos # (Auto) 0.0 (0.0-0.7) K/uL Baso # (Auto) 0.0 (0.0-0.1) K/uL Nucleated RBC % 0.0 /100WBC Nucleated RBCs # 0 K/uL Sodium 137 (136-148) mmol/L Potassium 4.7 (3.5-5.1) mmol/L Chloride 103 (98-107) mmol/L Carbon Dioxide 30.5 (21.0-32.0) mmol/L BUN 20 H (7.0-18.0) mg/dL Creatinine 1.1 (0.8-1.3) mg/dL Est Cr Clr Drug Dosing 88.42 mL/min Estimated GFR (MDRD) > 60.0 ml/min Glucose 155 H (74-106) mg/dL Calcium 8.8 (8.5-10.1) mg/dL Phosphorus 4.4 (2.6-4.7) mg/dL Magnesium 2.4 (1.8-2.4) mg/dL Total Bilirubin 0.4 (0.2-1.0) mg/dL AST 50 H (15-37) IU/L ALT 136 H (14-63) IU/L Alkaline Phosphatase 41 L (46-116) U/L Total Protein 6.4 (6.4-8.2) g/dL Albumin 2.2 L (3.4-5.0) g/dL Globulin 4.2 H (2.6-4.0) g/dL Albumin/Globulin Ratio 0.5 L (0.9-1.6) Result Diagrams: 07/07/21 05:39 07/07/21 05:39 Sepsis Event Note - Evaluation Sepsis Screening Result: Sepsis Risk - Focused Exam Vital Signs: Vital Signs Temp Resp BP Pulse Ox 07/07/21 14:00 36.6 C 18 113/64 90 L 07/07/21 13:00 36.6 C 18 108/64 90 L 07/07/21 11:58 36.6 C 16 115/73 90 L 07/07/21 10:58 36.6 C 16 115/73 91 L 07/07/21 09:58 36.6 C 20 116/74 91 L 07/07/21 09:00 36.6 C 18 119/67 90 L 07/07/21 08:00 36.6 C 20 128/84 90 L 07/07/21 07:00 20 120/75 91 L 07/07/21 06:00 20 115/74 93 L 07/07/21 05:00 22 H 126/84 94 L 07/07/21 04:00 36.5 C 20 113/71 92 L - Problem List & Annotations (1) AMS (altered mental status) SNOMED Code(s): 963599337 Code(s): R41.82 - ALTERED MENTAL STATUS, UNSPECIFIED Status: Acute Current Visit: Yes (2) COVID SNOMED Code(s): 696391930 Code(s): U07.1 - COVID-19 Status: Acute Current Visit: Yes (3) Hypoxia SNOMED Code(s): 769582923 Code(s): R09.02 - HYPOXEMIA Status: Acute Current Visit: Yes (4) Acute respiratory failure with hypoxia SNOMED Code(s): 13625621, 475287931 Code(s): J96.01 - ACUTE RESPIRATORY FAILURE WITH HYPOXIA Status: Acute Current Visit: No (5) Hyponatremia SNOMED Code(s): 41636907 Code(s): E87.1 - HYPO-OSMOLALITY AND HYPONATREMIA Status: Acute Current Visit: No (6) BMI 33.0-33.9,adult SNOMED Code(s): 084254903 Code(s): Z68.33 - BODY MASS INDEX [BMI] 33.0-33.9, ADULT Status: Acute Current Visit: Yes - Problem List Review Problem List Initiated/Reviewed/Updated: Yes - My Orders Last 24 Hours: My Active Orders 07/06/21 17:09 RT Post Treatment Assessment [RC] Click to Edit RT Pre-Treatment Assessment [RC] Click to Edit 07/06/21 18:00 Albuterol/Ipratropium [Combivent Respimat] See Dose Instructions INH Q4HRRT Albuterol/Ipratropium [DuoNeb 3.0-0.5 MG/3 ML] 3 ml NEB Q4HRRT PRN 07/06/21 21:30 Azithromycin [Zithromax] 500 mg Sodium Chloride 0.9% [Normal Saline (AdvBag)] 250 ml IV Q24H - Plan Plan:: 46 y/o M admitted for worsening covid hypoxic respiratory failure, was discharged home on 3Lts CTA noted, no PE Currently has been weaned off CPAP tolerating high flow well Remdesivir course already completed during last visit Patient currently on Solu-Medrol Patient is in positive water fluid balance, will give 1 time IV Lasix 20 mg to keep him in more euvolemic/negative water balance Start IV antibiotics for possible superimposed bacterial PNA Procalciton high, continue antibiotics for now Lovenox BID DuoNebs [facility] IS q1h [place]
[2021-07-07] MEDS: Azithromycin 500 MG in Sodium Chloride 0.9% 250 ML IV SCH (21:41)
[2021-07-08] MEDS: Albuterol/Ipratropium 4 GM Inhalation Spray INH SCH ×6 (01:25→21:50)
[2021-07-08] MEDS: cefTRIAXone 1 GM in Premix Bag 1 BAG IV SCH (01:25)
[2021-07-08] MEDS: methylPREDNISolone Sodium Succinate 40 MG/1 ML SDV IVPUSH SCH ×3 (05:41→22:06)
[2021-07-08 07:25] LABS: BLOOD UREA NITROGEN,BUN 22 mg/dL (7.0-18.0); CARBON DIOXIDE,CO2 27.6 mmol/L (21.0-32.0); CHLORIDE,CL 101 mmol/L (98-107); GLUCOSE RANDOM 152 mg/dL (74-106); POTASSIUM,K 4.8 mmol/L (3.5-5.1); SODIUM,NA 136 mmol/L (136-148)
[2021-07-08] MEDS: Enoxaparin 40 MG/0.4 ML Syringe SUBCUT SCH ×2 (08:14→22:06)
[2021-07-08] MEDS: Pantoprazole 40 MG in Sodium Chloride 0.9% 10 ML IV SCH (08:14)
--- NOTE | 2021-07-08 15:15 | PCM.PN ---
- General Info Date of Service: 07/08/21 - Review of Systems Systems Review Comment:: feeling better, shortness of breath improvig - Patient Data Vitals - Most Recent: Last Vital Signs Temp 36.1 C 07/08/21 12:00 Pulse 104 H 07/03/21 23:55 Resp 13 07/08/21 14:00 BP 115/88 07/08/21 14:00 Pulse Ox 91 L 07/08/21 14:00 Weight - Most Recent: 95.68 kg I&O - Last 24 Hours: Intake & Output 07/08/21 07/08/21 07/08/21 06:59 14:59 22:59 Intake Total 1200 Output Total 1950 Balance -750 Lab Results Last 24 Hours: Laboratory Results - last 24 hr 07/08/21 07/08/21 Range/Units 05:59 05:59 WBC 12.86 H (4.0-11.0) K/uL RBC 4.83 (4.50-5.90) M/uL Hgb 13.4 (13.0-17.0) g/dL Hct 39.8 (38.0-50.0) % MCV 82.4 (80.0-98.0) fL MCH 27.7 (27.0-32.0) pg MCHC 33.7 (31.0-37.0) g/dL RDW Std Deviation 42.2 (28.0-62.0) fl RDW Coeff of Giuliana 14 (11.0-15.0) % Plt Count 258 (150-400) K/uL MPV 9.50 (7.40-12.00) fL Neut % (Auto) 83.5 H (48.0-80.0) % Lymph % (Auto) 8.3 L (16.0-40.0) % [place] % (Auto) 8.1 (0.0-15.0) % Eos % (Auto) 0.0 (0.0-7.0) % Baso % (Auto) 0.1 (0.0-1.5) % Neut # (Auto) 10.7 H (1.4-5.7) K/uL Lymph # (Auto) 1.1 (0.6-2.4) K/uL [place] # (Auto) 1.0 H (0.0-0.8) K/uL Eos # (Auto) 0.0 (0.0-0.7) K/uL Baso # (Auto) 0.0 (0.0-0.1) K/uL Nucleated RBC % 0.0 /100WBC Nucleated RBCs # 0 K/uL Sodium 136 (136-148) mmol/L Potassium 4.8 (3.5-5.1) mmol/L Chloride 101 (98-107) mmol/L Carbon Dioxide 27.6 (21.0-32.0) mmol/L BUN 22 H (7.0-18.0) mg/dL Creatinine 1.0 (0.8-1.3) mg/dL Est Cr Clr Drug Dosing 97.26 mL/min Estimated GFR (MDRD) > 60.0 ml/min Glucose 152 H (74-106) mg/dL Calcium 8.6 (8.5-10.1) mg/dL Total Bilirubin 0.4 (0.2-1.0) mg/dL AST 41 H (15-37) IU/L ALT 155 H (14-63) IU/L Alkaline Phosphatase 36 L (46-116) U/L Total Protein 6.4 (6.4-8.2) g/dL Albumin 2.2 L (3.4-5.0) g/dL Globulin 4.2 H (2.6-4.0) g/dL Albumin/Globulin Ratio 0.5 L (0.9-1.6) Med Orders - Current: Current Medications Albuterol/Ipratropium (Albuterol/Ipratropium 4 Gm Inhalation [place]) 0 gm INH Q4HRRT [facility] Last Admin: 07/08/21 13:28 Dose: 1 puff Documented by: Albuterol/Ipratropium (Albuterol/Ipratropium 3.0-0.5 Mg/3 Ml Neb Soln) 3 ml NEB Q4HRRT PRN PRN Reason: sob, wheezing Benzonatate (Benzonatate 100 Mg Cap) 100 mg PO Q6H PRN PRN Reason: Cough Last Admin: 07/07/21 16:29 Dose: 100 mg Documented by: Enoxaparin Sodium (Enoxaparin 40 Mg/0.4 Ml Syringe) 40 mg SUBCUT Q12HR [facility] Last Admin: 07/08/21 08:14 Dose: 40 mg Documented by: Guaifenesin/Dextromethorphan (Guaifenesin/Dextromethorphan 100-10 Mg/5 Ml Soln 10 Ml Cup) 10 ml PO Q4H PRN PRN Reason: Cough Last Admin: 07/07/21 16:29 Dose: 10 ml Documented by: Sodium Chloride (Normal Saline) 250 mls @ 125 mls/hr IV ASDIRECTED [facility] Last Infusion: 07/04/21 19:23 Dose: Infused Documented by: Ceftriaxone Sodium/Dextrose 1 (gm/ Premix) 50 mls @ 100 mls/hr IV Q24H [facility] Last Admin: 07/08/21 01:25 Dose: 100 mls/hr Documented by: Pantoprazole Sodium 40 mg/ (Sodium Chloride) 10 mls @ 300 mls/hr IV DAILY [facility] Last Admin: 07/08/21 08:14 Dose: 300 mls/hr Documented by: Azithromycin 500 mg/ Sodium (Chloride) 250 mls @ 250 mls/hr IV Q24H [facility] Last Admin: 07/07/21 21:41 Dose: 250 mls/hr Documented by: Lorazepam (Lorazepam 2 Mg/Ml Sdv) 2 mg IVPUSH Q4H PRN PRN Reason: Agitation Last Admin: 07/04/21 08:23 Dose: 2 mg Documented by: Methylprednisolone Sodium Succinate (Methylprednisolone Sodium Succinate 40 Mg/1 Ml Sdv) 40 mg IVPUSH Q8H [facility] Last Admin: 07/08/21 13:56 Dose: 40 mg Documented by: Ondansetron HCl (Ondansetron 4 Mg/2 Ml Sdv) 4 mg IVPUSH Q4H PRN PRN Reason: Nausea/Vomiting Discontinued Medications Albuterol/Ipratropium (Albuterol/Ipratropium 3.0-0.5 Mg/3 Ml Neb Soln) 3 ml NEB Q4HRRT PRN PRN Reason: Shortness Of Breath/wheezing Albuterol/Ipratropium (Albuterol/Ipratropium 3.0-0.5 Mg/3 Ml Neb Soln) 3 ml NEB Q4HRRT [facility] Last Admin: 07/06/21 14:09 Dose: 3 ml Documented by: Dexamethasone (Dexamethasone 4 Mg/Ml Sdv) 4 mg IVPUSH DAILY [facility] Last Admin: 07/04/21 02:29 Dose: 4 mg Documented by: Enoxaparin Sodium (Enoxaparin 40 Mg/0.4 Ml Syringe) 40 mg SUBCUT BID [facility] Enoxaparin Sodium (Enoxaparin 100 Mg/1 Ml Syringe) 100 mg SUBCUT ONETIME ONE Stop: 07/04/21 02:46 Last Admin: 07/04/21 02:58 Dose: 100 mg Documented by: Enoxaparin Sodium (Enoxaparin 60 Mg/0.6 Ml Syringe) 60 mg SUBCUT ONETIME ONE Stop: 07/04/21 03:01 Last Admin: 07/04/21 02:58 Dose: 60 mg Documented by: Enoxaparin Sodium (Enoxaparin 40 Mg/0.4 Ml Syringe) 40 mg SUBCUT Q12HR [facility] Last Admin: 07/04/21 09:13 Dose: Not Given Documented by: Furosemide (Furosemide 40 Mg/4 Ml Vial) 40 mg IVPUSH NOW ONE Stop: 07/04/21 06:22 Last Admin: 07/04/21 06:29 Dose: 40 mg Documented by: Furosemide (Furosemide 20 Mg/2 Ml Vial) 20 mg IVPUSH NOW ONE Stop: 07/06/21 15:16 Last Admin: 07/06/21 16:48 Dose: 20 mg Documented by: Furosemide (Furosemide 20 Mg/2 Ml Vial) 20 mg IVPUSH ONETIME ONE Stop: 07/07/21 15:18 Last Admin: 07/07/21 16:29 Dose: 20 mg Documented by: Azithromycin 500 mg/ Sodium (Chloride) 250 mls @ 250 mls/hr IV ONETIME [facility] Last Infusion: 07/04/21 19:07 Dose: Infused Documented by: Azithromycin 250 mg/ Sodium (Chloride) 250 mls @ 250 mls/hr IV Q24H [facility] Last Admin: 07/05/21 20:16 Dose: 250 mls/hr Documented by: Azithromycin 500 mg/ Sodium (Chloride) 250 mls @ 250 mls/hr IV Q24H [facility] Azithromycin 500 mg/ Sodium (Chloride) 250 mls @ 250 mls/hr IV Q24H [facility] Last Admin: 07/06/21 21:22 Dose: Not Given Documented by: Iopamidol (Iopamidol 755 Mg/Ml 500 Ml Multipack Bottle) 100 ml IVPUSH ONETIME STA Stop: 07/04/21 19:06 Last Admin: 07/04/21 19:06 Dose: 100 ml Documented by: Lorazepam (Lorazepam 2 Mg/Ml Sdv) 2 mg IVPUSH ONETIME ONE Stop: 07/04/21 01:32 Last Admin: 07/04/21 01:37 Dose: 2 mg Documented by: Ondansetron HCl (Ondansetron 4 Mg/2 Ml Sdv) 4 mg IVPUSH ONETIME ONE Stop: 07/04/21 01:33 Last Admin: 07/04/21 01:37 Dose: 4 mg Documented by: - Exam Urinary Catheter Total Time: 1Days 1Hours General: Alert, Oriented Neck: Supple Lungs: Normal Respiratory Effort, Rhonchi Cardiovascular: Regular Rate, Regular Rhythm GI/Abdominal Exam: Soft, Non-Tender, No Distention Extremities: Non-Tender, No Pedal Edema Skin: Warm, Dry, Intact Neurological: No New Focal Deficit - Patient Data Lab Results Last 24 hrs: Laboratory Results - last 24 hr 07/08/21 07/08/21 Range/Units 05:59 05:59 WBC 12.86 H (4.0-11.0) K/uL RBC 4.83 (4.50-5.90) M/uL Hgb 13.4 (13.0-17.0) g/dL Hct 39.8 (38.0-50.0) % MCV 82.4 (80.0-98.0) fL MCH 27.7 (27.0-32.0) pg MCHC 33.7 (31.0-37.0) g/dL RDW Std Deviation 42.2 (28.0-62.0) fl RDW Coeff of Giuliana 14 (11.0-15.0) % Plt Count 258 (150-400) K/uL MPV 9.50 (7.40-12.00) fL Neut % (Auto) 83.5 H (48.0-80.0) % Lymph % (Auto) 8.3 L (16.0-40.0) % [place] % (Auto) 8.1 (0.0-15.0) % Eos % (Auto) 0.0 (0.0-7.0) % Baso % (Auto) 0.1 (0.0-1.5) % Neut # (Auto) 10.7 H (1.4-5.7) K/uL Lymph # (Auto) 1.1 (0.6-2.4) K/uL [place] # (Auto) 1.0 H (0.0-0.8) K/uL Eos # (Auto) 0.0 (0.0-0.7) K/uL Baso # (Auto) 0.0 (0.0-0.1) K/uL Nucleated RBC % 0.0 /100WBC Nucleated RBCs # 0 K/uL Sodium 136 (136-148) mmol/L Potassium 4.8 (3.5-5.1) mmol/L Chloride 101 (98-107) mmol/L Carbon Dioxide 27.6 (21.0-32.0) mmol/L BUN 22 H (7.0-18.0) mg/dL Creatinine 1.0 (0.8-1.3) mg/dL Est Cr Clr Drug Dosing 97.26 mL/min Estimated GFR (MDRD) > 60.0 ml/min Glucose 152 H (74-106) mg/dL Calcium 8.6 (8.5-10.1) mg/dL Total Bilirubin 0.4 (0.2-1.0) mg/dL AST 41 H (15-37) IU/L ALT 155 H (14-63) IU/L Alkaline Phosphatase 36 L (46-116) U/L Total Protein 6.4 (6.4-8.2) g/dL Albumin 2.2 L (3.4-5.0) g/dL Globulin 4.2 H (2.6-4.0) g/dL Albumin/Globulin Ratio 0.5 L (0.9-1.6) Result Diagrams: 07/08/21 05:59 07/08/21 05:59 Sepsis Event Note - Evaluation Sepsis Screening Result: No Definite Risk - Focused Exam Vital Signs: Vital Signs Temp Resp BP Pulse Ox 07/08/21 14:00 13 115/88 91 L 07/08/21 13:00 31 H 122/84 91 L 07/08/21 12:00 36.1 C 26 H 111/75 93 L 07/08/21 11:00 20 110/72 91 L 07/08/21 10:00 33 H 120/66 93 L 07/08/21 09:00 17 111/67 91 L 07/08/21 08:00 36 C L 20 118/61 91 L 07/08/21 07:00 18 112/68 93 L 07/08/21 06:00 21 H 111/72 92 L 07/08/21 05:00 19 90/50 L 92 L 07/08/21 04:00 36.5 C 18 112/86 91 L - Problem List Review Problem List Initiated/Reviewed/Updated: Yes - My Orders Last 24 Hours: My Active Orders 07/09/21 05:11 CBC WITH AUTO DIFF [HEME] AM COMPREHENSIVE METABOLIC PN,CMP [CHEM] AM - Plan Plan:: 46 y/o M admitted for worsening covid hypoxic respiratory failure, was discharged home on 3Lts weaned to simple NC Remdesivir course already completed during last visit Patient currently on Solu-Medrol Started IV antibiotics for possible superimposed bacterial PNA Procalciton high, continue antibiotics for now Lovenox BID Cathie SAMM IS q1h [place]
[2021-07-08] MEDS: Azithromycin 500 MG in Sodium Chloride 0.9% 250 ML IV SCH (21:50)
[2021-07-09] MEDS: Albuterol/Ipratropium 4 GM Inhalation Spray INH SCH ×3 (01:08→09:51)
[2021-07-09] MEDS: cefTRIAXone 1 GM in Premix Bag 1 BAG IV SCH (01:22)
[2021-07-09] MEDS: methylPREDNISolone Sodium Succinate 40 MG/1 ML SDV IVPUSH SCH (06:33)
[2021-07-09 06:43] LABS: BLOOD UREA NITROGEN,BUN 19 mg/dL (7.0-18.0); CARBON DIOXIDE,CO2 31.7 mmol/L (21.0-32.0); CHLORIDE,CL 101 mmol/L (98-107); GLUCOSE RANDOM 129 mg/dL (74-106); POTASSIUM,K 5.5 mmol/L (3.5-5.1); SODIUM,NA 136 mmol/L (136-148)
[2021-07-09] MEDS: Enoxaparin 40 MG/0.4 ML Syringe SUBCUT SCH (09:57)
[2021-07-09] MEDS: Pantoprazole 40 MG in Sodium Chloride 0.9% 10 ML IV SCH (09:58)
--- NOTE | 2021-07-09 10:05 | PCM.DCSUM1 ---
Discharge Summary - Discharge Data Discharge Date: 07/09/21 Discharge Disposition: Home, Self-Care 01 Condition: Good - Referral to Home Health Primary Care Physician: PCP None - Patient Summary/Data Hospital Course: Patient is a 46-year-old male who was recently discharged from hospital after completing 5 days of remdesivir, with dexamethasone. He was brought back to the ED a day later for altered mental status and hypoxia. When EMS arrived patient was not on any oxygen, They states his oxygen was in the mid 80s they put him on a nonrebreather and got up to the mid 90s. Patient lives alone and patient's family not seen him for a few hours before finding him without any clothes on altered. Lab work in ER showed mild hyponatremia, mild leucocytosis, troponin negative, some transaminitis , Patient was started on CPAP as HFNC was not available, CT head was negative. CXR reported worsening of bilateral infiltrates. Patient was admitted to ICU for further care. He was treated with solumedrol and IV antibiotics. His mentation improved and he was eventual weaned to HFNC and then simple nasal canula. Patient is now on 3 Liters NC and feels much better and is requesting discharge home. I recommended further monitoring due to his episode of hypoxia at home. Patient refused further hospitalization. He has admitted to not using home O2 prior to this admission but is now motivated to use oxygen at home. Patient was discharged home to have follow up with his primary care provider. - Patient Instructions Diet: Regular Diet as Tolerated Activity: As Tolerated - Discharge Plan Prescriptions/Med Rec: Azithromycin 250 mg PO DAILY #3 tablet Home Medications: Home Meds Azithromycin 250 mg PO DAILY #3 tablet 07/09/21 [Rx] Oxygen Therapy Mode: Nasal Cannula Oxygen Flow Rate (L/min): 3 Forms: ED Department Discharge Referrals: PCP,None [Primary Care Provider] - - Discharge Summary/Plan Comment DC Time >30 min.: No Total # of Minutes for Discharge Time: 20 - Patient Data Vitals - Most Recent: Last Vital Signs Temp 36.1 C 07/09/21 08:00 Pulse 67 07/09/21 04:00 Resp 18 07/09/21 08:00 BP 126/60 07/09/21 08:00 Pulse Ox 93 L 07/09/21 08:00 Weight - Most Recent: 95.68 kg I&O - Last 24 hours: Intake & Output 07/08/21 07/09/21 07/09/21 22:59 06:59 14:59 Intake Total 800 1040 Output Total 1300 750 Balance -500 290 Lab Results - Last 24 hrs: Laboratory Results - last 24 hr 07/09/21 07/09/21 Range/Units 05:40 05:40 WBC 16.71 H (4.0-11.0) K/uL RBC 4.97 (4.50-5.90) M/uL Hgb 14.0 (13.0-17.0) g/dL Hct 41.0 (38.0-50.0) % MCV 82.5 (80.0-98.0) fL MCH 28.2 (27.0-32.0) pg MCHC 34.1 (31.0-37.0) g/dL RDW Std Deviation 42.1 (28.0-62.0) fl RDW Coeff of Giuliana 14 (11.0-15.0) % Plt Count 270 (150-400) K/uL MPV 9.40 (7.40-12.00) fL Neut % (Auto) 85.3 H (48.0-80.0) % Lymph % (Auto) 8.7 L (16.0-40.0) % Cassia % (Auto) 5.9 (0.0-15.0) % Eos % (Auto) 0.0 (0.0-7.0) % Baso % (Auto) 0.1 (0.0-1.5) % Neut # (Auto) 14.3 H (1.4-5.7) K/uL Lymph # (Auto) 1.5 (0.6-2.4) K/uL Cassia # (Auto) 1.0 H (0.0-0.8) K/uL Eos # (Auto) 0.0 (0.0-0.7) K/uL Baso # (Auto) 0.0 (0.0-0.1) K/uL Nucleated RBC % 0.0 /100WBC Nucleated RBCs # 0 K/uL Sodium 136 (136-148) mmol/L Potassium 5.5 H (3.5-5.1) mmol/L Chloride 101 (98-107) mmol/L Carbon Dioxide 31.7 (21.0-32.0) mmol/L BUN 19 H (7.0-18.0) mg/dL Creatinine 1.2 (0.8-1.3) mg/dL Est Cr Clr Drug Dosing 81.05 mL/min Estimated GFR (MDRD) > 60.0 ml/min Glucose 129 H (74-106) mg/dL Calcium 8.1 L (8.5-10.1) mg/dL Total Bilirubin 0.4 (0.2-1.0) mg/dL AST 36 (15-37) IU/L ALT 160 H (14-63) IU/L Alkaline Phosphatase 43 L (46-116) U/L Total Protein 6.7 (6.4-8.2) g/dL Albumin 2.3 L (3.4-5.0) g/dL Globulin 4.4 H (2.6-4.0) g/dL Albumin/Globulin Ratio 0.5 L (0.9-1.6) Med Orders - Current: Current Medications Albuterol/Ipratropium (Albuterol/Ipratropium 4 Gm Inhalation Rulo) 0 gm INH Q4HRRT [facility] Last Admin: 07/09/21 09:51 Dose: 1 puff Documented by: Albuterol/Ipratropium (Albuterol/Ipratropium 3.0-0.5 Mg/3 Ml Neb Soln) 3 ml NEB Q4HRRT PRN PRN Reason: sob, wheezing Benzonatate (Benzonatate 100 Mg Cap) 100 mg PO Q6H PRN PRN Reason: Cough Last Admin: 07/07/21 16:29 Dose: 100 mg Documented by: Enoxaparin Sodium (Enoxaparin 40 Mg/0.4 Ml Syringe) 40 mg SUBCUT Q12HR [facility] Last Admin: 07/08/21 22:06 Dose: 40 mg Documented by: Guaifenesin/Dextromethorphan (Guaifenesin/Dextromethorphan 100-10 Mg/5 Ml Soln 10 Ml Cup) 10 ml PO Q4H PRN PRN Reason: Cough Last Admin: 07/07/21 16:29 Dose: 10 ml Documented by: Sodium Chloride (Normal Saline) 250 mls @ 125 mls/hr IV ASDIRECTED [facility] Last Infusion: 07/04/21 19:23 Dose: Infused Documented by: Ceftriaxone Sodium/Dextrose 1 (gm/ Premix) 50 mls @ 100 mls/hr IV Q24H [facility] Last Admin: 07/09/21 01:22 Dose: 100 mls/hr Documented by: Pantoprazole Sodium 40 mg/ (Sodium Chloride) 10 mls @ 300 mls/hr IV DAILY [facility] Last Admin: 07/08/21 08:14 Dose: 300 mls/hr Documented by: Azithromycin 500 mg/ Sodium (Chloride) 250 mls @ 250 mls/hr IV Q24H [facility] Last Admin: 07/08/21 21:50 Dose: 250 mls/hr Documented by: Lorazepam (Lorazepam 2 Mg/Ml Sdv) 2 mg IVPUSH Q4H PRN PRN Reason: Agitation Last Admin: 07/04/21 08:23 Dose: 2 mg Documented by: Methylprednisolone Sodium Succinate (Methylprednisolone Sodium Succinate 40 Mg/1 Ml Sdv) 40 mg IVPUSH Q8H [facility] Last Admin: 07/09/21 06:33 Dose: 40 mg Documented by: Ondansetron HCl (Ondansetron 4 Mg/2 Ml Sdv) 4 mg IVPUSH Q4H PRN PRN Reason: Nausea/Vomiting Discontinued Medications Albuterol/Ipratropium (Albuterol/Ipratropium 3.0-0.5 Mg/3 Ml Neb Soln) 3 ml NEB Q4HRRT PRN PRN Reason: Shortness Of Breath/wheezing Albuterol/Ipratropium (Albuterol/Ipratropium 3.0-0.5 Mg/3 Ml Neb Soln) 3 ml NEB Q4HRRT [facility] Last Admin: 07/06/21 14:09 Dose: 3 ml Documented by: Dexamethasone (Dexamethasone 4 Mg/Ml Sdv) 4 mg IVPUSH DAILY [facility] Last Admin: 07/04/21 02:29 Dose: 4 mg Documented by: Enoxaparin Sodium (Enoxaparin 40 Mg/0.4 Ml Syringe) 40 mg SUBCUT BID [facility] Enoxaparin Sodium (Enoxaparin 100 Mg/1 Ml Syringe) 100 mg SUBCUT ONETIME ONE Stop: 07/04/21 02:46 Last Admin: 07/04/21 02:58 Dose: 100 mg Documented by: Enoxaparin Sodium (Enoxaparin 60 Mg/0.6 Ml Syringe) 60 mg SUBCUT ONETIME ONE Stop: 07/04/21 03:01 Last Admin: 07/04/21 02:58 Dose: 60 mg Documented by: Enoxaparin Sodium (Enoxaparin 40 Mg/0.4 Ml Syringe) 40 mg SUBCUT Q12HR [facility] Last Admin: 07/04/21 09:13 Dose: Not Given Documented by: Furosemide (Furosemide 40 Mg/4 Ml Vial) 40 mg IVPUSH NOW ONE Stop: 07/04/21 06:22 Last Admin: 07/04/21 06:29 Dose: 40 mg Documented by: Furosemide (Furosemide 20 Mg/2 Ml Vial) 20 mg IVPUSH NOW ONE Stop: 07/06/21 15:16 Last Admin: 07/06/21 16:48 Dose: 20 mg Documented by: Furosemide (Furosemide 20 Mg/2 Ml Vial) 20 mg IVPUSH ONETIME ONE Stop: 07/07/21 15:18 Last Admin: 07/07/21 16:29 Dose: 20 mg Documented by: Azithromycin 500 mg/ Sodium (Chloride) 250 mls @ 250 mls/hr IV ONETIME [facility] Last Infusion: 07/04/21 19:07 Dose: Infused Documented by: Azithromycin 250 mg/ Sodium (Chloride) 250 mls @ 250 mls/hr IV Q24H [facility] Last Admin: 07/05/21 20:16 Dose: 250 mls/hr Documented by: Azithromycin 500 mg/ Sodium (Chloride) 250 mls @ 250 mls/hr IV Q24H [facility] Azithromycin 500 mg/ Sodium (Chloride) 250 mls @ 250 mls/hr IV Q24H [facility] Last Admin: 07/06/21 21:22 Dose: Not Given Documented by: Iopamidol (Iopamidol 755 Mg/Ml 500 Ml Multipack Bottle) 100 ml IVPUSH ONETIME STA Stop: 07/04/21 19:06 Last Admin: 07/04/21 19:06 Dose: 100 ml Documented by: Lorazepam (Lorazepam 2 Mg/Ml Sdv) 2 mg IVPUSH ONETIME ONE Stop: 07/04/21 01:32 Last Admin: 07/04/21 01:37 Dose: 2 mg Documented by: Ondansetron HCl (Ondansetron 4 Mg/2 Ml Sdv) 4 mg IVPUSH ONETIME ONE Stop: 07/04/21 01:33 Last Admin: 07/04/21 01:37 Dose: 4 mg Documented by:
== END 2021-07-09 12:01 | disposition home or self-care (01) | DRG 137 ==
LOC: MW.ED 21:46 → MW.ICU 07-04 00:12 → MW.MS 07-08 17:10
PROVIDERS: ADMIT Student in an Organized Health Care Education/Training Program; ATTEND Student in an Organized Health Care Education/Training Program
PROC: 3E0333Z Introduction of Anti-inflammatory into Peripheral Vein, Percutaneous Approach (ICD-10-PCS; principal; 2021-07-04)
PROC: 5A09357 Assistance with Respiratory Ventilation, Less than 24 Consecutive Hours, Continuous Positive Airway Pressure (ICD-10-PCS; 2021-07-04)
PROC: 5A0945A Assistance with Respiratory Ventilation, 24-96 Consecutive Hours, High Flow/Velocity Cannula (ICD-10-PCS; 2021-07-05)
DX: U07.1 COVID-19 (principal); J80 Acute respiratory distress syndrome; E87.1 Hypo-osmolality and hyponatremia; R74.01 Elevation of levels of liver transaminase levels; Z86.16 Personal history of COVID-19; Z90.89 Acquired absence of other organs; Z68.33 Body mass index [BMI] 33.0-33.9, adult; J12.82 Pneumonia due to coronavirus disease 2019
CPT/HCPCS: 36415; 36600; 51702; 70450; 70450-26; 71045; 71045-26; 71275; 71275-26; 80048; 80053; 80305-QW; 80307; 82803; 83605; 83735; 84100; 84145; 84484; 85025; 85379; 85610; 85730; 86140; 93005; 94640; 99285-25; A9270-GY; C9113; J0456; J0696; J1100; J1650; J1940; J2060; J2405; J2920; J7050; J7620-GY; Q9967